=== PATIENT | female | born 1955 | race Caucasian/White ===

== ENCOUNTER 2020-10-23 11:14 | Outpatient (REF) | payer MEDICAID, SELFPAY ==
--- NOTE | ~2020-10-23 | MM_ITS ---
EXAMINATION: MM SCREENING DIGITAL BREAST TOMOSYNTHESIS, BILATERAL CLINICAL INFORMATION: Screening. Asymptomatic. The lifetime risk of breast cancer based on the Tyrer-Cuzick Model is 5.6%. COMPARISON: Mammography: May 24, 2019 and studies dating back to November 27, 2013 TECHNIQUE: Digital breast tomosynthesis is performed in both the craniocaudal and mediolateral oblique views along with computer-aided detection (CAD). Synthesized 2D images are generated from the tomosynthesis. FINDINGS: There are scattered areas of fibroglandular density (ACR BI-RADS breast composition Category b). There are no significant masses, abnormal calcifications, or other abnormalities. Architecture distortion from previous surgery is again seen within the anterior aspect of the left breast. MM/MM tomosynthesis screening BI IMPRESSION: There are no significant changes from prior study. ASSESSMENT: BI-RADS 2: Benign RECOMMENDATION: Routine annual mammography screening. This patient's information was entered into a reminder system with a target due date for their next mammogram.
== END 2020-10-23 11:15 | disposition home or self-care (01) ==
LOC: HO.MAMMO 11:14
PROVIDERS: Visit Provider General Practice
DX: Z12.31 Encounter for screening mammogram for malignant neoplasm of breast (principal)
CPT/HCPCS: 77063; 77067

== ENCOUNTER 2020-12-21 09:21 | Outpatient (REF) | payer MEDICARE, MEDICAID, SELFPAY ==
[2020-12-21 10:37] LABS: Anion Gap 13 (12-20); Blood Urea Nitrogen 14 mg/dL (9-16); Calcium 9.7 mg/dL (8.4-10.2); Carbon Dioxide 28 mmol/L (22-29); Chloride 100 mmol/L (96-108); Estimated Glomerular Filt Rate 55; Potassium 4.2 mmol/L (3.3-5.1); Sodium 137 mmol/L (135-145)
== END 2020-12-21 09:22 | disposition home or self-care (01) ==
LOC: HO.LAB 09:21
PROVIDERS: Visit Provider Internal Medicine Nephrology
DX: I10 Essential (primary) hypertension (principal)
CPT/HCPCS: 36415; 80051; 82310; 82565; 84520

== ENCOUNTER 2021-01-15 12:56 | Emergency (ER) | payer MEDICARE, MEDICAID, SELFPAY ==
--- NOTE | ~2021-01-15 | CT_ITS ---
EXAMINATION: CT ABDOMEN AND PELVIS WITHOUT CONTRAST CLINICAL INFORMATION: Poor appetite and weakness COMPARISON: Previous CT of the abdomen and pelvis most recent November 2016 TECHNIQUE: Multidetector volumetric imaging was performed from the superior aspect of the liver through the pubic symphysis. Sagittal and coronal reformatted images were obtained on the technologist's workstation. This CT examination was performed using dose optimization techniques as appropriate, variously including the following: *Automated exposure control *Adjustment of mA and/or kV according to patient size (this includes techniques or standardized protocols for targeted exams where dose is matched to indication/reason for exam; i.e. extremities or head) *Use of iterative reconstruction technique DLP: 647 mGy-cm FINDINGS: LIVER, GALLBLADDER, AND BILIARY TREE: There is a small calcification high in the dome of the right lobe of the liver. The liver is otherwise unremarkable. The gallbladder is been removed. There is no biliary duct dilatation. PANCREAS: Unremarkable. SPLEEN: Unremarkable. ADRENAL GLANDS: Unremarkable. KIDNEYS AND URETERS: There is cortical thinning or scarring of the left kidney. There is a tiny 1 mm left upper pole renal stone. The kidneys are otherwise unremarkable. The bladder is not optimally distended. There is question of mild bladder wall thickening. BLADDER: Unremarkable. GASTROINTESTINAL TRACT: The small and large bowel is unremarkable. The appendix is unremarkable. The stomach is unremarkable. ABDOMINAL WALL: There are umbilical and supraumbilical hernias containing fat. LYMPH NODES: Normal. VASCULAR: Unremarkable. PELVIC VISCERA: Unremarkable. OSSEOUS STRUCTURES: There are degenerative changes of the spine. CT/CT abdomen pelvis wo con IMPRESSION: Left renal cortical thinning or scarring. Small nonobstructing left renal stone. Question bladder wall thickening.
--- NOTE | ~2021-01-15 | XR_ITS ---
EXAMINATION: XR CHEST CLINICAL INFORMATION: Weakness COMPARISON: June 24, 2018 TECHNIQUE: AP portable view of the chest was obtained. FINDINGS: There is a region of ill-defined density seen within the left lower lung peripherally which may be related to atelectasis or pneumonitis however some disc density may be related to the rotation of the chest on this image. No significant confluent parenchymal disease identified. No pneumothorax or pleural effusion. Heart normal size. No evidence of pulmonary edema. 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 XR/XR chest 1V IMPRESSION: Small focus of ill-defined density left lower lung which may be related to minor atelectasis and less likely pneumonitis.
--- NOTE | ~2021-01-15 | CT_ITS ---
EXAMINATION: CT CHEST WITHOUT CONTRAST CLINICAL INFORMATION: Poor appetite and weakness COMPARISON: Previous chest x-ray most recent June 2018 TECHNIQUE: Multidetector volumetric CT imaging of the chest was done. Axial MIP volume rendering provided. Sagittal and coronal reformatted images were obtained. This CT examination was performed using dose optimization techniques as appropriate, variously including the following: *Automated exposure control *Adjustment of mA and/or kV according to patient size (this includes techniques or standardized protocols for targeted exams where dose is matched to indication/reason for exam; i.e. extremities or head) *Use of iterative reconstruction technique DLP: 297 mGy-cm FINDINGS: LUNGS: There is a 2 cm cyst in the right upper lobe. The lungs are otherwise clear. MEDIASTINUM: The heart is upper normal in size. There is mild coronary artery calcification. There is no pericardial effusion. There are no enlarged hilar or mediastinal lymph nodes. The thoracic aorta is normal in caliber. PLEURA: There is no pleural effusion. No pleural mass or thickening. AXILLA: No lymphadenopathy. OSSEOUS STRUCTURES: There are mild degenerative changes of the spine. CT/CT chest wo con IMPRESSION: 2 cm cyst in the right upper lobe. Mild coronary artery calcification.
[2021-01-15 13:15] VITALS: BP 138/82; BP 146/79; PULSE 51; PULSE 52; RESP 16; TEMP 36.7; O2SAT 100; O2SAT 95; BMI 33.5
--- NOTE | 2021-01-15 13:22 | ED_ITS ---
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 Sent to ED. Recently her digital content marketing manager cut her toprol 150mg daily to 50mg daily but she continues on her nifedipine and HCTZ MD elicited complaint: dizziness and lightheadedness Onset (ago): week(s) (2) Timing: sudden onset and intermittent Severity: moderate Description: lightheadedness and off-balance Context: change in body position History of similar symptoms: No Exacerbating factors: movement/ambulation and change in body position Relieving factors: remaining still Associated symptoms: weakness Related Data Home Medications Medication Instructions Recorded Confirmed atorvastatin 40 mg tablet 40 mg PO BEDTIME 01/15/21 01/15/21 cholecalciferol (vitamin D3) 50 50 mcg PO DAILY 01/15/21 01/15/21 mcg (2,000 unit) capsule cyanocobalamin (vitamin B-12) 500 500 mcg PO DAILY 01/15/21 01/15/21 mcg tablet famotidine 20 mg tablet 20 mg PO DAILY 01/15/21 01/15/21 fluoxetine 10 mg capsule 10 mg PO BEDTIME 01/15/21 01/15/21 fluticasone propionate 50 2 spray INTRANASAL QAM PRN 01/15/21 01/15/21 mcg/actuation nasal spray,suspension hydrochlorothiazide 25 mg tablet 25 mg PO DAILY 01/15/21 01/15/21 ibuprofen 600 mg tablet 600 mg PO TID PRN 01/15/21 01/15/21 levothyroxine 50 mcg tablet 50 mcg PO DAILY 01/15/21 01/15/21 losartan 50 mg tablet 50 mg PO DAILY 01/15/21 01/15/21 metoprolol succinate 100 mg 50 mg PO DAILY 01/15/21 01/15/21 tablet,extended release 24 hr nifedipine 90 mg tablet,extended 90 mg PO DAILY 01/15/21 01/15/21 release oxcarbazepine 300 mg tablet 300 mg PO DAILY 01/15/21 01/15/21 oxcarbazepine 300 mg tablet 600 mg PO BEDTIME 01/15/21 01/15/21 sennosides 8.6 mg tablet (Senna 1 - 2 tab PO BID PRN 01/15/21 01/15/21 Laxative) trazodone 150 mg tablet 75 - 150 mg PO BEDTIME PRN 01/15/21 01/15/21 Previous Rx's Medication Instructions Recorded cefuroxime axetil 250 mg tablet 250 mg PO BID 7 Days #14 tab 01/15/21 Allergies Allergy/AdvReac Type Severity Reaction Status Date / Time lisinopril [LISINOPRIL] Allergy Intermediate ANGIOEDEMA, Verified 01/15/21 13:26 angioedema? Seafood Allergy Mild DIFFICULTY Uncoded 11/30/19 16:35 BREATHING seafood Allergy Unknown throat Uncoded 07/12/17 00:00 closes up, stuffy nose seafood; shellfish Allergy Unknown anaphylaxis Uncoded 09/09/18 00:00 Review of Systems Review of Systems: Constitutional : No Weight loss, No Fever, No Chills, No Fatigue, No Malaise ENT/Mouth : No sore throat, No Rhinorrhea Eyes: No Eye Pain, No Swelling, No Redness Cardiovascular : No Chest Pain, No SOB, No Dyspnea on Exertion, No Orthopnea, No Edema, No Palpitations Respiratory : No Cough, No Sputum, No Wheezing Gastrointestinal : No Nausea, No Vomiting, No Diarrhea, No Constipation, No abdominal Pain, No Hematochezia, No Melena Genitourinary : No Dysuria, No Urinary Frequency, No Hematuria, Musculoskeletal : No joint pain, No Myalgias, No Joint Swelling Skin : No Skin Lesions, No rash Neuro : pos Weakness, No Numbness, pos Dizziness, No Headache Psych : No Anxiety/Panic, No Depression Heme/Lymph: No Bruising, No Bleeding,No Lymphadenopathy Endocrine : No Polyuria, No Polydipsia All other systems reviewed and are negative PMFSH Past Medical History Attestation statement: The following information was validated with the patient. Medical History (Updated 01/15/21 @ 16:21 by Zuleyka Ritchie DO) CKD (chronic kidney disease) Depression Diabetes HLD (hyperlipidemia) Hypothyroidism Social History Social History (Updated 01/15/21 @ 13:37 by Zuleyka Ritchie DO) Alcohol intake: never Patient Tobacco Use Status: Never used Tobacco Advance Directives: Yes Advance Directives Information Provided: Yes Advance Directives on File: No Physical Exam Vital Signs: Vital Signs: Last Vital Signs Temp 98.0 F 01/15/21 14:19 Pulse 51 01/15/21 14:19 Resp 15 01/15/21 14:19 BP 145/81 H 01/15/21 14:19 Pulse Ox 99 01/15/21 14:19 Body Mass Index 33.5 Appearance: Alert. Oriented X3. No acute distress. Eyes: Pupils equal, round and reactive to light. ENT: Pharynx normal. Neck: Normal inspection. Neck supple. CVS: Normal heart rate and rhythm. Pulses normal. Respiratory: No respiratory distress. Breath sounds normal. Abdomen: Soft and nontender. Skin: Skin warm and dry. Normal skin color. Normal skin turgor. Extremities: No lower extremity edema. No calf ttp Neuro: Oriented X 3. No motor deficit. No sensory deficit. no drift Course Course Course Narrative: negative orthostatic VS but she felt dizzy with standing UA+ with WBCs and bacteria infection suspected cultures and lactic along with IV rocephin ordered 337pm patient can likely be kept off her metoprolol will offer rehab if she is not feeling well will stop metoprolol feels much better, i did offer rehab but she refuses, wants to go home as she has small kids to care for MDM - Dizziness MDM Narrative Medical decision making narrative: 65 yo female with HTN, HLD, DM here with 2 weeks dizziness worse with standing found to be orthostatic in [facility] today sent to ED. She denies CP/SOB or GIB symptoms. She was decreased on her metoprolol recently. She does note a poor appetite recently but denies abdominal pain. At this time will obtain labs, EKG, UA, CXR, ortho VS, and give 1L of fluid the patient will likely need reduction of her BP medications after review. Lab Data Result diagrams: 01/15/21 14:09 01/15/21 14:09 Labs: Lab Results 01/15/21 01/15/21 01/15/21 Range/Units 14:09 14:09 14:09 WBC 3.7 L (4.8-10.8) X10*3/uL RBC 4.89 (4.20-5.50) X10*6/uL Hgb 10.9 L (12.0-16.0) g/dl Hct 33.7 L (37.0-47.0) % MCV 68.9 L (80.0-98.0) fL MCH 22.3 L (27.0-33.0) pg MCHC 32.3 (31.0-35.0) g/dl RDW 18.0 H (11.0-16.0) % Plt Count 221 (160-400) X10*3/uL MPV 10.7 (9.4-12.3) fL Immature Gran % (Auto) 0.3 (0.0-0.4) % Neut % (Auto) 55.3 (45-73) % Lymph % (Auto) 29.9 (20-40) % [place] % (Auto) 12.6 H (2-11) % Eos % (Auto) 1.4 (0-4) % Baso % (Auto) 0.5 (0-2) % Lymph # (Auto) 1.1 L (1.2-4.9) X10*3/uL [place] # (Auto) 0.5 (0.1-1.2) X10*3/uL Eos # (Auto) 0.1 (0.0-0.4) X10*3/uL Baso # (Auto) 0.0 (0.0-0.2) X10*3/uL Abs Immat Gran (auto) 0.01 (0.00-0.03) X10*3/uL Absolute Neuts (auto) 2.02 (2.0-8.3) x10*3/uL Absolute Nucleated RBC 0.000 (0.0-0.012) X10*3/uL Nucleated RBC % (auto) 0.0 (0.0-0.2) /100WBC Sodium 134 L (135-145) mmol/L Potassium 3.1 L D (3.3-5.1) mmol/L Chloride 97 (96-108) mmol/L Carbon Dioxide 30 H (22-29) mmol/L Anion Gap 10 L (12-20) BUN 14 (9-16) mg/dL Creatinine 0.85 (0.5-1.4) mg/dL Estim Creat Clear Calc 63.3 Estimated GFR > 60 Random Glucose 101 (60-115) mg/dL Lactic Acid (0.5-2.0) mmol/L Calcium 9.1 D (8.4-10.2) mg/dL Magnesium 1.7 (1.6-2.6) mg/dL Total Bilirubin 0.4 (0.0-1.0) mg/dL Direct Bilirubin 0.2 (0.0-0.5) mg/dL AST 16 (5-31) U/L ALT 14 (0-31) U/L Alkaline Phosphatase 72 (39-117) U/L Troponin I High Sens (<3.5-17.0) ng/L Total Protein 7.0 (6.5-8.0) g/dL Albumin 3.9 (3.5-5.0) g/dL Lipase 26 (8-78) U/L Urine Color Urine Appearance Urine pH (5.0-8.0) Ur Specific [place] (1.005-1.025) Urine Protein (NEG-TRACE) MG/DL Urine Glucose (UA) (NEG) MG/DL Urine Ketones (NEG) MG/DL Urine Blood (NEG) Urine Nitrite (NEG) Ur Leukocyte Esterase (NEG) Urine RBC (0) /HPF Urine WBC (0-4) /HPF Ur Squamous Epith Cells /LPF Urine Bacteria /LPF Urine Mucus /LPF COVID-19 (ZACK) Negative (Negative) COVID-19 Clin Com See Note 01/15/21 01/15/21 01/15/21 Range/Units 14:09 15:07 16:59 WBC (4.8-10.8) X10*3/uL RBC (4.20-5.50) X10*6/uL Hgb (12.0-16.0) g/dl Hct (37.0-47.0) % MCV (80.0-98.0) fL MCH (27.0-33.0) pg MCHC (31.0-35.0) g/dl RDW (11.0-16.0) % Plt Count (160-400) X10*3/uL MPV (9.4-12.3) fL Immature Gran % (Auto) (0.0-0.4) % Neut % (Auto) (45-73) % Lymph % (Auto) (20-40) % [place] % (Auto) (2-11) % Eos % (Auto) (0-4) % Baso % (Auto) (0-2) % Lymph # (Auto) (1.2-4.9) X10*3/uL [place] # (Auto) (0.1-1.2) X10*3/uL Eos # (Auto) (0.0-0.4) X10*3/uL Baso # (Auto) (0.0-0.2) X10*3/uL Abs Immat Gran (auto) (0.00-0.03) X10*3/uL Absolute Neuts (auto) (2.0-8.3) x10*3/uL Absolute Nucleated RBC (0.0-0.012) X10*3/uL Nucleated RBC % (auto) (0.0-0.2) /100WBC Sodium (135-145) mmol/L Potassium (3.3-5.1) mmol/L Chloride (96-108) mmol/L Carbon Dioxide (22-29) mmol/L Anion Gap (12-20) BUN (9-16) mg/dL Creatinine (0.5-1.4) mg/dL Estim Creat Clear Calc Estimated GFR Random Glucose (60-115) mg/dL Lactic Acid 0.9 (0.5-2.0) mmol/L Calcium (8.4-10.2) mg/dL Magnesium (1.6-2.6) mg/dL Total Bilirubin (0.0-1.0) mg/dL Direct Bilirubin (0.0-0.5) mg/dL AST (5-31) U/L ALT (0-31) U/L Alkaline Phosphatase (39-117) U/L Troponin I High Sens 7.0 (<3.5-17.0) ng/L Total Protein (6.5-8.0) g/dL Albumin (3.5-5.0) g/dL Lipase (8-78) U/L Urine Color YELLOW Urine Appearance HAZY Urine pH 6.0 (5.0-8.0) Ur Specific [place] 1.010 (1.005-1.025) Urine Protein NEG (NEG-TRACE) MG/DL Urine Glucose (UA) NEG (NEG) MG/DL Urine Ketones NEG (NEG) MG/DL Urine Blood NEG (NEG) Urine Nitrite NEG (NEG) Ur Leukocyte Esterase 1+ H (NEG) Urine RBC 0 (0) /HPF Urine WBC 10-14 H (0-4) /HPF Ur Squamous Epith Cells 1+ /LPF Urine Bacteria 2+ /LPF Urine Mucus TRACE /LPF COVID-19 (ZACK) (Negative) COVID-19 Clin Com ECG Data Attestation: I personally reviewed and interpreted this ECG as follows: ECG interpretation date: 01/15/21 ECG interpretation time: 13:48 Interpretation: Rate: 47 Rhythm: sinus bradycardia Helper: left , LVH Normal P waves. Normal ROQUE. Normal QRS complex. ST T wave : nonspecific Vs3-V5, no DENISE, inverted III qTC: normal prior studies: no sig change 2019 The study has been interpreted contemporaneously by me. . Discharge Plan Discharge Clinical Impression: Acute hypokalemia, Dizziness, Bradycardia, Acute UTI Patient Disposition: Home, Self-Care Instructions: Urinary Tract Infection in Women (ED), Hypokalemia (ED), Dizziness (ED) Additional Instructions: return to ED for any worsening symptoms or concerns NO METOPROLOL Prescriptions: New cefuroxime axetil 250 mg tablet 250 mg PO BID 7 Days Qty: 14 RF: 0 No Action losartan 50 mg tablet 50 mg PO DAILY RF: 0 atorvastatin 40 mg tablet 40 mg PO BEDTIME RF: 0 sennosides [Senna Laxative] 8.6 mg tablet 1 - 2 tab PO BID PRN (Reason: Constipation) RF: 0 nifedipine 90 mg tablet extended release 90 mg PO DAILY RF: 0 metoprolol succinate 100 mg tablet extended release 24 hr 50 mg PO DAILY RF: 0 oxcarbazepine 300 mg tablet 600 mg PO BEDTIME RF: 0 oxcarbazepine 300 mg tablet 300 mg PO DAILY RF: 0 cyanocobalamin (vitamin B-12) 500 mcg tablet 500 mcg PO DAILY RF: 0 levothyroxine 50 mcg tablet 50 mcg PO DAILY RF: 0 trazodone 150 mg tablet 75 - 150 mg PO BEDTIME PRN (Reason: Sleep) RF: 0 fluoxetine 10 mg capsule 10 mg PO BEDTIME RF: 0 hydrochlorothiazide 25 mg tablet 25 mg PO DAILY RF: 0 ibuprofen 600 mg tablet 600 mg PO TID PRN (Reason: pain) RF: 0 fluticasone propionate 50 mcg/actuation spray,suspension 2 spray intranasal QAM PRN (Reason: Allergy Symptoms) RF: 0 cholecalciferol (vitamin D3) 50 mcg (2,000 unit) capsule 50 mcg PO DAILY RF: 0 famotidine 20 mg Tablet 20 mg PO DAILY RF: 0 Referrals: Physician,Unknown J [Primary Care Provider] - 2 days Print Language: Tajik
--- NOTE | 2021-01-15 13:27 | PC.NURSE ---
pt states she went to [facility] for knee check-up, she became weak and dizzy, the nurse at [facility] did orthos and she was positive for orthos, the nurse recommended her to come to the ed for further evaluation. Pt has history of high blood pressure and states she took her metoprolol this morning, she also reports her pcp recently changed her metoprolol dose. pt denies sob/chest pain/numbness/tingling. no fever/chills. no other symptoms reported. pt alert and oriented x4, current HR 50.
--- NOTE | 2021-01-15 13:28 | ECG_ITS ---
Test Reason : WEAKNESS Blood Pressure : / mmHG Vent. Rate : 047 BPM Atrial Rate : 047 BPM P-R Int : 166 ms QRS Dur : 078 ms QT Int : 498 ms P-R-T Axes : 036 -11 -05 degrees QTc Int : 440 ms Sinus bradycardia RSR' or QR pattern in V1 suggests right ventricular conduction delay Minimal voltage criteria for LVH, may be normal variant ( R in aVL ) Nonspecific ST abnormality Abnormal ECG No significant changes seen Referred By: Zuleyka Ritchie Electronically Signed By:JULY MADISON MD
[2021-01-15] MEDS: 0.9 % Sodium Chloride 1,000 ML 999 ML IVCONT (13:37)
--- NOTE | 2021-01-15 14:09 | PHA.MEDREC ---
Pharmacy Consult ? Medication Reconciliation Pharmacy has completed the medication reconciliation. Note the metoprolol dose was decreased to 50mg QD Thanks Sandra Chiang
[2021-01-15 14:13] VITALS: BP 132/69; PULSE 50
[2021-01-15 14:14] VITALS: BP 145/86; PULSE 49
[2021-01-15 14:14] LABS: MANUAL DIFF FLAG NO
[2021-01-15 14:15] VITALS: BP 142/83; PULSE 47
[2021-01-15 14:15] LABS: Basophils Percent Auto 0.5 % (0-2); Eosinophils Absolute Auto 0.1 X10*3/uL (0.0-0.4); Eosinophils Percent Auto 1.4 % (0-4); Hematocrit 33.7 % (37.0-47.0); Hemoglobin 10.9 g/dl (12.0-16.0); Imm Gran Abs Auto 0.01 X10*3/uL (0.00-0.03); Imm Gran Pct Auto 0.3 % (0.0-0.4); Lymphocytes Absolute Auto 1.1 X10*3/uL (1.2-4.9); Lymphocytes Percent Auto 29.9 % (20-40); Mean Corpuscular HGB Conc 32.3 g/dl (31.0-35.0); Mean Corpuscular Hemoglobin 22.3 pg (27.0-33.0); Mean Corpuscular Volume 68.9 fL (80.0-98.0); Mean Platelet Volume 10.7 fL (9.4-12.3); Monocytes Absolute Auto 0.5 X10*3/uL (0.1-1.2); Monocytes Percent Auto 12.6 % (2-11); Neutrophils Absolute Auto 2.02 x10*3/uL (2.0-8.3); Neutrophils Percent Auto 55.3 % (45-73); Platelet Count 221 X10*3/uL (160-400); Red Blood Count 4.89 X10*6/uL (4.20-5.50); White Blood Count 3.7 X10*3/uL (4.8-10.8)
[2021-01-15 14:19] VITALS: BP 145/81; PULSE 51; RESP 15; TEMP 36.7; O2SAT 99
[2021-01-15 14:29] LABS: COVID-19 Test Negative (Negative)
[2021-01-15 14:31] LABS: Alanine Aminotransferase 14 U/L (0-31); Albumin Level 3.9 g/dL (3.5-5.0); Alkaline Phosphatase 72 U/L (39-117); Anion Gap 10 (12-20); Aspartate Amino Transferase 16 U/L (5-31); Bilirubin Direct 0.2 mg/dL (0.0-0.5); Bilirubin Total 0.4 mg/dL (0.0-1.0); Blood Urea Nitrogen 14 mg/dL (9-16); Calcium 9.1 mg/dL (8.4-10.2); Carbon Dioxide 30 mmol/L (22-29); Chloride 97 mmol/L (96-108); Creatinine Clr Calc Pharmacy 63.3; Estimated Glomerular Filt Rate > 60; Glucose Random 101 mg/dL (60-115); Lipase 26 U/L (8-78); Magnesium 1.7 mg/dL (1.6-2.6); Potassium 3.1 mmol/L (3.3-5.1); Sodium 134 mmol/L (135-145)
[2021-01-15] MEDS: Potassium Chloride ER 20 MEQ TAB.ER.PRT PO (15:10)
[2021-01-15 15:17] LABS: Appearance Urine HAZY; Color Urine YELLOW; Glucose Urine UA NEG (NEG); Leukocyte Esterase Urine 1+ (NEG); Nitrite Urine NEG (NEG); UACC Culture Trigger YES; Urine Blood NEG (NEG); Urine Ketones NEG (NEG); Urine Protein NEG (NEG-TRACE)
[2021-01-15 15:27] LABS: Mucus Urine TRACE /LPF; Squamous Epithelial Cell Urine 1+ /LPF
[2021-01-15 15:28] LABS: Bacteria Urine 2+ /LPF; RBC Urine 0 /HPF (0)
[2021-01-15 17:19] LABS: Lactic Acid 0.9 mmol/L (0.5-2.0)
[2021-01-15] MEDS: cefTRIAXone sodium 1 GM in 0.9 % Sodium Chloride 50 ML IV (17:31)
--- NOTE | 2021-01-15 17:54 | PC.NURSE ---
PT WITH STEADY GAIT TO THE BATHROOM . DENIES DIZZINESS, ANTIBIOTICS INFUSING
== END 2021-01-15 19:31 | disposition home or self-care (01) ==
PROVIDERS: Emergency Provider Emergency Medicine
DX: R42 Dizziness and giddiness (principal); E87.6 Hypokalemia; R00.1 Bradycardia, unspecified; N39.0 Urinary tract infection, site not specified; E11.22 Type 2 diabetes mellitus with diabetic chronic kidney disease; I12.9 Hypertensive chronic kidney disease with stage 1 through stage 4 chronic kidney disease, or unspecified chronic kidney disease; N18.9 Chronic kidney disease, unspecified; Z79.899 Other long term (current) drug therapy; Z20.822 Contact with and (suspected) exposure to COVID-19
CPT/HCPCS: 36415; 71045; 71250; 74176; 80048; 80076; 81001; 83605; 83690; 83735; 84484; 85025; 87040; 87086; 87088; 87186; 87635; 93005; 96361; 96365; 99284; J0696

== ENCOUNTER 2022-05-29 14:37 | Emergency (ER) | payer MEDICARE, MEDICAID, SELFPAY ==
[2022-05-29] VITALS (8 sets, daily range): BP systolic 167–219; BP diastolic 77–117; PULSE 53–79; RESP 12–22; TEMP 35.9–37.1; O2SAT 95–99; BMI 31.5
--- NOTE | 2022-05-29 15:07 | ED_ITS ---
HPI - General Adult General Chief complaint: Recheck/Abnormal Lab/Rx <ROBERTO Arnold - Last Filed: 05/29/22 15:10> Stated complaint: high bp <ROBERTO Arnold - Last Filed: 05/29/22 15:10> Time Seen by Provider: 05/29/22 17:24 <ROBERTO Arnold - Last Filed: 05/29/22 15:10> Source: patient, RN notes reviewed and evp and chief operating officer <Shoaib Paul - Last Filed: 05/29/22 20:06> Mode of arrival: ambulatory <Shoaib Paul - Last Filed: 05/29/22 20:06> Limitations: language barrier <Shoaib Paul - Last Filed: 05/29/22 20:06> History of Present Illness HPI narrative: 66-year-old female past medical history significant for hypertension, hyperlipidemia, hypothyroidism presents for evaluation of vomiting and high blood pressure. Patient reports that she has been vomiting for the last week up until Wednesday, 2 days ago. She made an appointment with her primary doctor and was seen today who referred her to the emergency department. The patient reports that she was vomiting a lot this past Wednesday, only a couple of times on Wednesday, 2 days ago and has not vomited in the last 2 days. She states that some of her vomitus was ?dark in color. ? Denies any history of GI bleed and she is not any blood thinning medications She states that her doctor dentist her blood pressure was elevated and sent her to the emergency department for that reason as well The patient takes hydrochlorothiazide, metoprolol, losartan, and nifedipine for her blood pressure She reports that she has not been taking his medications due to her vomiting Her blood pressure in the ER was as high as 219/113. <Shoaib Paul - Last Filed: 05/29/22 20:06> Related Data Home medications: Home Medications Medication Instructions Recorded Confirmed atorvastatin 40 mg tablet 40 mg PO BEDTIME 01/15/21 01/15/21 cholecalciferol (vitamin D3) 50 50 mcg PO DAILY 01/15/21 01/15/21 mcg (2,000 unit) capsule cyanocobalamin (vitamin B-12) 500 500 mcg PO DAILY 01/15/21 01/15/21 mcg tablet famotidine 20 mg tablet 20 mg PO DAILY 01/15/21 01/15/21 fluoxetine 10 mg capsule 10 mg PO BEDTIME 01/15/21 01/15/21 fluticasone propionate 50 2 spray intranasal QAM PRN Allergy 01/15/21 01/15/21 mcg/actuation nasal Symptoms spray,suspension hydrochlorothiazide 25 mg tablet 25 mg PO DAILY 01/15/21 01/15/21 ibuprofen 600 mg tablet 600 mg PO TID PRN pain 01/15/21 01/15/21 levothyroxine 50 mcg tablet 50 mcg PO DAILY 01/15/21 01/15/21 losartan 50 mg tablet 50 mg PO DAILY 01/15/21 01/15/21 metoprolol succinate 100 mg 50 mg PO DAILY 01/15/21 01/15/21 tablet,extended release 24 hr nifedipine 90 mg tablet,extended 90 mg PO DAILY 01/15/21 01/15/21 release oxcarbazepine 300 mg tablet 300 mg PO DAILY 01/15/21 01/15/21 oxcarbazepine 300 mg tablet 600 mg PO BEDTIME 01/15/21 01/15/21 sennosides 8.6 mg tablet (Senna 1 - 2 tab PO BID PRN Constipation 01/15/21 01/15/21 Laxative) trazodone 150 mg tablet 75 - 150 mg PO BEDTIME PRN Sleep 01/15/21 01/15/21 Previous Rx's Medication Instructions Recorded cefuroxime axetil 250 mg tablet 250 mg PO BID 7 days #14 tabs 01/15/21 ondansetron 4 mg disintegrating 4 mg PO Q8H PRN Nausea And 05/29/22 tablet Vomiting #10 tabs <ROBERTO Arnold - Last Filed: 05/29/22 15:10> Allergies/adverse reactions: Allergies Allergy/AdvReac Type Severity Reaction Status Date / Time lisinopril [LISINOPRIL] Allergy Intermediate ANGIOEDEMA, Verified 05/29/22 15:06 angioedema? Seafood Allergy Mild DIFFICULTY Uncoded 05/29/22 15:06 BREATHING seafood Allergy Unknown throat Uncoded 05/29/22 15:06 closes up, stuffy nose seafood; shellfish Allergy Unknown anaphylaxis Uncoded 05/29/22 15:06 <ROBERTO Arnold - Last Filed: 05/29/22 15:10> Review of Systems Constitutional: Constitutional: Reports as per HPI, Denies chills, Denies fatigue, Denies fever(s) and Denies headache(s) <Shoaib Paul - Last Filed: 05/29/22 20:06> ENT: Denies headache(s) <Shoaib Paul - Last Filed: 05/29/22 20:06> Cardiovascular: Cardiovascular: Denies chest pain and Denies dyspnea <Shoaib Paul - Last Filed: 05/29/22 20:06> Respiratory: Respiratory: Denies cough and Denies dyspnea <Shoaib Paul - Last Filed: 05/29/22 20:06> Gastrointestinal: Gastrointestinal: Denies abdominal pain, Denies melena, Denies hematochezia, Denies constipation and Reports vomiting (Reports the vomitus was dark) <Shoaib Paul - Last Filed: 05/29/22 20:06> Genitourinary: Genitourinary: Denies dysuria <Shoaib Paul - Last Filed: 05/29/22 20:06> Neurologic: Denies headache(s) and Denies focal weakness <Shoaib Paul - Last Filed: 05/29/22 20:06> Endocrine: Endocrine: Denies fatigue <Shoaib Paul - Last Filed: 05/29/22 20:06> [facility] Past Medical History Medical History: Medical History (Updated 05/29/22 @ 19:41 by Shoaib Paul) CKD (chronic kidney disease) Depression Diabetes HLD (hyperlipidemia) Hypothyroidism <ROBERTO Arnold - Last Filed: 05/29/22 15:10> Social History Social History: Social History (Updated 01/15/21 @ 13:37 by Gretel Ritchie DO) Alcohol intake: never Patient Tobacco Use Status: Never used Tobacco Smoked in Last 30 Days: No Use of substances other than those prescribed or required for medical reasons: No Advance Directives: No Advance Directives Information Provided: No <ROBERTO Arnold - Last Filed: 05/29/22 15:10> Physical Exam ED Vital Signs: Vital Signs - 24 hr 05/29/22 15:07 05/29/22 16:47 05/29/22 17:40 Temperature 96.7 F L 98.8 F 98.2 F Pulse Rate 61 60 79 Respiratory Rate 18 16 20 Blood Pressure 203/117 H 219/113 H 178/77 H Pulse Oximetry 99 99 95 Oxygen Delivery Method Room Air Room Air Room Air 05/29/22 18:16 05/29/22 19:21 05/29/22 19:55 Temperature 97.8 F 98.1 F Pulse Rate 53 57 62 Respiratory Rate 22 H 16 12 Blood Pressure 181/79 H 178/83 H 210/104 H Pulse Oximetry 96 96 Oxygen Delivery Method Room Air Room Air BMI result Body Mass Index 31.5 <ROBERTO Arnold - Last Filed: 05/29/22 15:10> Vital Signs - 24 hr 05/29/22 15:07 05/29/22 16:47 05/29/22 17:40 Temperature 96.7 F L 98.8 F 98.2 F Pulse Rate 61 60 79 Respiratory Rate 18 16 20 Blood Pressure 203/117 H 219/113 H 178/77 H Pulse Oximetry 99 99 95 Oxygen Delivery Method Room Air Room Air Room Air 05/29/22 18:16 05/29/22 19:21 05/29/22 19:55 Temperature 97.8 F 98.1 F Pulse Rate 53 57 62 Respiratory Rate 22 H 16 12 Blood Pressure 181/79 H 178/83 H 210/104 H Pulse Oximetry 96 96 Oxygen Delivery Method Room Air Room Air BMI result Body Mass Index 31.5 <Shoaib Paul - Last Filed: 05/29/22 20:06> Const General: healthy appearing, comfortable, no acute distress, alert and awake <Shoaib Paul - Last Filed: 05/29/22 20:06> Nutritional Appearance: well nourished <Shoaib Paul - Last Filed: 05/29/22 20:06> Orientation/consciousness: patient oriented x3 <Shoaib Paul - Last Filed: 05/29/22 20:06> HENMT Head: Yes normocephalic and Yes atraumatic <Shoaib Paul - Last Filed: 05/29/22 20:06> Throat: Yes posterior oropharynx normal <Shoaib Paul - Last Filed: 05/29/22 20:06> Eyes Eyelids: Yes eyelids normal <Shoaib Last Filed: 05/29/22 20:06> Conjunctivae: conjunctivae normal < Last Filed: 05/29/22 20:06> Sclerae: sclerae normal <Shoaib Last Filed: 05/29/22 20:06> Corneas: corneas normal < Last Filed: 05/29/22 20:06> Pupils: Equal, round and reactive pupils present <Shoaib O Last Filed: 05/29/22 20:06> EOM: EOMs intact bilaterally <Shoaib Last Filed: 05/29/22 20:06> Neck Neck: Yes full ROM <Shoaib Last Filed: 05/29/22 20:06> Resp Effort & Inspection: normal respiratory effort, able to speak in complete sentences, no audible wheezes and not labored <Shoaib Last Filed: 05/29/22 20:06> Auscultation: clear to auscultation bilaterally <Shoaib Last Filed: 05/29/22 20:06> Cardio Rate: regular rate <Shoaib Filed: 05/29/22 20:06> Rhythm: regular rhythm <Shoaib Filed: 05/29/22 20:06> GI Inspection: No distended <Shoaib Last Filed: 05/29/22 20:06> Palpation (GI): Soft to palpation, not firm, nontender, no guarding and not rigid <Shoaib Last Filed: 05/29/22 20:06> Auscultation: normoactive bowel sounds <Shoaib O Last Filed: 05/29/22 20:06> Rectal Exam - Female: visual inspection normal, normal sphincter tone and No heme positive stool <Shoaib O Last Filed: 05/29/22 20:06> Skin General skin exam: no rashes or lesions noted and elasticity normal <Shoaib O F iled: 05/29/22 20:06> Neuro General: patient oriented x3 <Shoaib Paul - Last Filed: 05/29/22 20:06> Cranial nerves: Yes CN's II-XII intact bilaterally, Yes Equal, round and reactive pupils present and Yes Bilaterally intact EOM present <Shoaib Paul - Last Filed: 05/29/22 20:06> Cognition (Neuro): normal cognition <Shoaib Paul - Last Filed: 05/29/22 20:06> Extrem Other: Moving all extremities well without any obvious deformities <Shoaib estrada - Last Filed: 05/29/22 20:06> Course Course Course Narrative: RME performed by Shanda Dsouza PA-C. Patient is a 66 year old female presenting to the emergency department with nausea and vomiting a week. Patient states that she is having epigastric pain with dark blood in it. Patient states that she is on high blood pressure medications. Labs ordered. Patient placed back in the waiting room pending results and room availability. <ROBERTO Arnold - Last Filed: 05/29/22 15:10> Reevaluation(s) Reevaluation #1: Patient's blood pressure improved, she has had no further vomiting, she is stable for discharge. We will send her home with Neri to help make sure she is not nauseous while taking her antihypertensive medications. <Shoaib Paul - Last Filed: 05/29/22 20:06> Time: 19:40 <Shoaib Paul - Last Filed: 05/29/22 20:06> Reevaluation #2: The patient was revived all part discharge her repeat blood pressure was 210/103. Will give her a dose of her home medications and repeat blood pressure <Shoaib Paul - Last Filed: 05/29/22 20:06> Time: 20:05 <Shoaib Paul - Last Filed: 05/29/22 20:06> Medications Administered Discontinued Medications Generic Name Dose Route Start Last Admin Trade Name Freq PRN Reason Stop Dose Admin Hydralazine HCl 5 mg 05/29/22 17:44 05/29/22 18:20 Hydralazine Hcl 20 Mg/Ml Vial IVPUSH 05/29/22 17:45 5 mg ONCE ONE Administration Protocol Sodium Chloride 1,000 mls @ 999 mls/hr 05/29/22 17:45 05/29/22 19:44 Ns IV 05/29/22 18:45 Infused .Q1H1M SUELLEN Infusion Ondansetron HCl 4 mg 05/29/22 17:43 05/29/22 18:20 Ondansetron Hcl 4 Mg/2 Ml Vial IVPUSH 05/29/22 17:44 4 mg ONCE ONE Administration <ROBERTO Arnold - Last Filed: 05/29/22 15:10> Medications Administered Discontinued Medications Generic Name Dose Route Start Last Admin Trade Name Bogdan PRN Reason Stop Dose Admin Hydralazine HCl 5 mg 05/29/22 17:44 05/29/22 18:20 Hydralazine Hcl 20 Mg/Ml Vial IVPUSH 05/29/22 17:45 5 mg ONCE ONE Administration Protocol Sodium Chloride 1,000 mls @ 999 mls/hr 05/29/22 17:45 05/29/22 19:44 Ns IV 05/29/22 18:45 Infused .Q1H1M SUELLEN Infusion Ondansetron HCl 4 mg 05/29/22 17:43 05/29/22 18:20 Ondansetron Hcl 4 Mg/2 Ml Vial IVPUSH 05/29/22 17:44 4 mg ONCE ONE Administration <Shoaib Paul - Last Filed: 05/29/22 20:06> Medical Decision Making Medical Decision Making MDM Narrative: This is a 66-year-old female presenting for evaluation of vomiting over the last few days as well as high blood pressure. She reports that she has not been taking her 4 blood pressure medications due to her vomiting which is likely cause of hypertension today. The patient reports a dark vomitus over the last couple of days. A rectal exam was performed which did not show any obvious blood, a sample was sent to the lab for occult blood testing. Patient's hemoglobin is actually slightly above her baseline. She does appear slightly hemoconcentrated, so she will be given a L of IV fluid, hydralazine for her hypertension and Zofran for her vomiting. Again, the patient has not vomited in the last 2 days, so this was likely a viral bug that has since resolved <Shoaib Paul - Last Filed: 05/29/22 20:06> Differential Diagnosis Gastroenteritis Viral syndrome Peptic ulcer disease Upper GI bleed JOSHUA GI bleed Hypertension Noncompliance <Shoaib Paul - Last Filed: 05/29/22 20:06> Lab Data Result Diagrams: 05/29/22 15:45 05/29/22 15:45 <ROBERTO Arnold - Last Filed: 05/29/22 15:10> Labs: Lab Results 05/29/22 05/29/22 05/29/22 Range/Units 15:45 15:45 15:45 WBC 3.9 L (4.8-10.8) X10*3/uL RBC 5.77 H (4.20-5.50) X10*6/uL Hgb 12.4 (12.0-16.0) g/dl Hct 39.3 (37.0-47.0) % MCV 68.1 L (80.0-98.0) fL MCH 21.5 L (27.0-33.0) pg MCHC 31.6 (31.0-35.0) g/dl RDW 18.8 H (11.0-16.0) % Plt Count 231 (160-400) X10*3/uL MPV 11.0 (9.4-12.3) fL Immature Gran % (Auto) 0.3 (0.0-0.4) % Neut % (Auto) 47.5 (45-73) % Lymph % (Auto) 40.3 H (20-40) % [place] % (Auto) 8.8 (2-11) % Eos % (Auto) 2.3 (0-4) % Baso % (Auto) 0.8 (0-2) % Lymph # (Auto) 1.6 (1.2-4.9) X10*3/uL [place] # (Auto) 0.3 (0.1-1.2) X10*3/uL Eos # (Auto) 0.1 (0.0-0.4) X10*3/uL Baso # (Auto) 0.0 (0.0-0.2) X10*3/uL Abs Immat Gran (auto) 0.01 (0.00-0.03) X10*3/uL Absolute Neuts (auto) 1.8 L (2.0-8.3) x10*3/uL Absolute Nucleated RBC 0.000 (0.0-0.012) X10*3/uL Nucleated RBC % (auto) 0.0 (0.0-0.2) /100WBC PT 12.0 (10.0-13.1) SEC INR 1.0 (0.9-1.1) APTT 28.0 (26.0-36.4) SEC Sodium 141 (135-145) mmol/L Potassium 4.1 D (3.3-5.1) mmol/L Chloride 105 (96-108) mmol/L Carbon Dioxide 27 (22-29) mmol/L Anion Gap 13 (12-20) BUN 7 L (9-16) mg/dL Creatinine 0.96 (0.5-1.4) mg/dL Estim Creat Clear Calc 53.6 Estimated GFR 58 Random Glucose 93 (60-115) mg/dL Calcium 9.5 (8.4-10.2) mg/dL Magnesium 2.1 (1.6-2.6) mg/dL Total Bilirubin 0.5 (0.0-1.0) mg/dL AST 20 (5-31) U/L ALT 16 (0-31) U/L Alkaline Phosphatase 107 (39-117) U/L Total Protein 7.5 (6.5-8.0) g/dL Albumin 4.2 (3.5-5.0) g/dL Stool Occult Blood (NEGATIVE) 05/29/22 Range/Units 17:49 WBC (4.8-10.8) X10*3/uL RBC (4.20-5.50) X10*6/uL Hgb (12.0-16.0) g/dl Hct (37.0-47.0) % MCV (80.0-98.0) fL MCH (27.0-33.0) pg MCHC (31.0-35.0) g/dl RDW (11.0-16.0) % Plt Count (160-400) X10*3/uL MPV (9.4-12.3) fL Immature Gran % (Auto) (0.0-0.4) % Neut % (Auto) (45-73) % Lymph % (Auto) (20-40) % [place] % (Auto) (2-11) % Eos % (Auto) (0-4) % Baso % (Auto) (0-2) % Lymph # (Auto) (1.2-4.9) X10*3/uL [place] # (Auto) (0.1-1.2) X10*3/uL Eos # (Auto) (0.0-0.4) X10*3/uL Baso # (Auto) (0.0-0.2) X10*3/uL Abs Immat Gran (auto) (0.00-0.03) X10*3/uL Absolute Neuts (auto) (2.0-8.3) x10*3/uL Absolute Nucleated RBC (0.0-0.012) X10*3/uL Nucleated RBC % (auto) (0.0-0.2) /100WBC PT (10.0-13.1) SEC INR (0.9-1.1) APTT (26.0-36.4) SEC Sodium (135-145) mmol/L Potassium (3.3-5.1) mmol/L Chloride (96-108) mmol/L Carbon Dioxide (22-29) mmol/L Anion Gap (12-20) BUN (9-16) mg/dL Creatinine (0.5-1.4) mg/dL Estim Creat Clear Calc Estimated GFR Random Glucose (60-115) mg/dL Calcium (8.4-10.2) mg/dL Magnesium (1.6-2.6) mg/dL Total Bilirubin (0.0-1.0) mg/dL AST (5-31) U/L ALT (0-31) U/L Alkaline Phosphatase (39-117) U/L Total Protein (6.5-8.0) g/dL Albumin (3.5-5.0) g/dL Stool Occult Blood NEGATIVE (NEGATIVE) <ROBERTO Arnold - Last Filed: 05/29/22 15:10> Lab Results 05/29/22 05/29/22 05/29/22 Range/Units 15:45 15:45 15:45 WBC 3.9 L (4.8-10.8) X10*3/uL RBC 5.77 H (4.20-5.50) X10*6/uL Hgb 12.4 (12.0-16.0) g/dl Hct 39.3 (37.0-47.0) % MCV 68.1 L (80.0-98.0) fL MCH 21.5 L (27.0-33.0) pg MCHC 31.6 (31.0-35.0) g/dl RDW 18.8 H (11.0-16.0) % Plt Count 231 (160-400) X10*3/uL MPV 11.0 (9.4-12.3) fL Immature Gran % (Auto) 0.3 (0.0-0.4) % Neut % (Auto) 47.5 (45-73) % Lymph % (Auto) 40.3 H (20-40) % [place] % (Auto) 8.8 (2-11) % Eos % (Auto) 2.3 (0-4) % Baso % (Auto) 0.8 (0-2) % Lymph # (Auto) 1.6 (1.2-4.9) X10*3/uL [place] # (Auto) 0.3 (0.1-1.2) X10*3/uL Eos # (Auto) 0.1 (0.0-0.4) X10*3/uL Baso # (Auto) 0.0 (0.0-0.2) X10*3/uL Abs Immat Gran (auto) 0.01 (0.00-0.03) X10*3/uL Absolute Neuts (auto) 1.8 L (2.0-8.3) x10*3/uL Absolute Nucleated RBC 0.000 (0.0-0.012) X10*3/uL Nucleated RBC % (auto) 0.0 (0.0-0.2) /100WBC PT 12.0 (10.0-13.1) SEC INR 1.0 (0.9-1.1) APTT 28.0 (26.0-36.4) SEC Sodium 141 (135-145) mmol/L Potassium 4.1 D (3.3-5.1) mmol/L Chloride 105 (96-108) mmol/L Carbon Dioxide 27 (22-29) mmol/L Anion Gap 13 (12-20) BUN 7 L (9-16) mg/dL Creatinine 0.96 (0.5-1.4) mg/dL Estim Creat Clear Calc 53.6 Estimated GFR 58 Random Glucose 93 (60-115) mg/dL Calcium 9.5 (8.4-10.2) mg/dL Magnesium 2.1 (1.6-2.6) mg/dL Total Bilirubin 0.5 (0.0-1.0) mg/dL AST 20 (5-31) U/L ALT 16 (0-31) U/L Alkaline Phosphatase 107 (39-117) U/L Total Protein 7.5 (6.5-8.0) g/dL Albumin 4.2 (3.5-5.0) g/dL Stool Occult Blood (NEGATIVE) 05/29/22 Range/Units 17:49 WBC (4.8-10.8) X10*3/uL RBC (4.20-5.50) X10*6/uL Hgb (12.0-16.0) g/dl Hct (37.0-47.0) % MCV (80.0-98.0) fL MCH (27.0-33.0) pg MCHC (31.0-35.0) g/dl RDW (11.0-16.0) % Plt Count (160-400) X10*3/uL MPV (9.4-12.3) fL Immature Gran % (Auto) (0.0-0.4) % Neut % (Auto) (45-73) % Lymph % (Auto) (20-40) % [place] % (Auto) (2-11) % Eos % (Auto) (0-4) % Baso % (Auto) (0-2) % Lymph # (Auto) (1.2-4.9) X10*3/uL [place] # (Auto) (0.1-1.2) X10*3/uL Eos # (Auto) (0.0-0.4) X10*3/uL Baso # (Auto) (0.0-0.2) X10*3/uL Abs Immat Gran (auto) (0.00-0.03) X10*3/uL Absolute Neuts (auto) (2.0-8.3) x10*3/uL Absolute Nucleated RBC (0.0-0.012) X10*3/uL Nucleated RBC % (auto) (0.0-0.2) /100WBC PT (10.0-13.1) SEC INR (0.9-1.1) APTT (26.0-36.4) SEC Sodium (135-145) mmol/L Potassium (3.3-5.1) mmol/L Chloride (96-108) mmol/L Carbon Dioxide (22-29) mmol/L Anion Gap (12-20) BUN (9-16) mg/dL Creatinine (0.5-1.4) mg/dL Estim Creat Clear Calc Estimated GFR Random Glucose (60-115) mg/dL Calcium (8.4-10.2) mg/dL Magnesium (1.6-2.6) mg/dL Total Bilirubin (0.0-1.0) mg/dL AST (5-31) U/L ALT (0-31) U/L Alkaline Phosphatase (39-117) U/L Total Protein (6.5-8.0) g/dL Albumin (3.5-5.0) g/dL Stool Occult Blood NEGATIVE (NEGATIVE) <Shoaib Paul - Last Filed: 05/29/22 20:06> Discharge Plan Discharge Clinical Impression: Vomiting, Hypertension <ROBERTO Arnold - Last Filed: 05/29/22 15:10> Patient Disposition: Home, Self-Care <ROBERTO Arnold - Last Filed: 05/29/22 15:10> Instructions: Acute Nausea and Vomiting (ED) <ROBERTO Arnold - Last Filed: 05/29/22 15:10> Additional Instructions: Take Zofran as needed for nausea and vomiting. It is important that you take all of your blood pressure medications as prescribed Your workup in the emergency department was reassuring. There was no blood noted in your stool Follow-up with your primary doctor <ROBERTO Arnold - Last Filed: 05/29/22 15:10> Prescriptions: New ondansetron 4 mg tablet,disintegrating 4 mg PO Q8H PRN (Reason: Nausea And Vomiting) Qty: 10 0RF No Action losartan 50 mg tablet 50 mg PO DAILY atorvastatin 40 mg tablet 40 mg PO BEDTIME sennosides [Senna Laxative] 8.6 mg tablet 1 - 2 tab PO BID PRN (Reason: Constipation) nifedipine 90 mg tablet extended release 90 mg PO DAILY metoprolol succinate 100 mg tablet extended release 24 hr 50 mg PO DAILY oxcarbazepine 300 mg tablet 600 mg PO BEDTIME oxcarbazepine 300 mg tablet 300 mg PO DAILY cyanocobalamin (vitamin B-12) 500 mcg tablet 500 mcg PO DAILY levothyroxine 50 mcg tablet 50 mcg PO DAILY trazodone 150 mg tablet 75 - 150 mg PO BEDTIME PRN (Reason: Sleep) fluoxetine 10 mg capsule 10 mg PO BEDTIME hydrochlorothiazide 25 mg tablet 25 mg PO DAILY ibuprofen 600 mg tablet 600 mg PO TID PRN (Reason: pain) fluticasone propionate 50 mcg/actuation spray,suspension 2 spray intranasal QAM PRN (Reason: Allergy Symptoms) cholecalciferol (vitamin D3) 50 mcg (2,000 unit) capsule 50 mcg PO DAILY famotidine 20 mg Tablet 20 mg PO DAILY cefuroxime axetil 250 mg tablet 250 mg PO BID 7 Days Qty: 14 0RF <ROBERTO Arnold - Last Filed: 05/29/22 15:10>
[2022-05-29 15:50] LABS: Basophils Percent Auto 0.8 % (0-2); Eosinophils Absolute Auto 0.1 X10*3/uL (0.0-0.4); Eosinophils Percent Auto 2.3 % (0-4); Hematocrit 39.3 % (37.0-47.0); Hemoglobin 12.4 g/dl (12.0-16.0); Imm Gran Abs Auto 0.01 X10*3/uL (0.00-0.03); Imm Gran Pct Auto 0.3 % (0.0-0.4); Lymphocytes Absolute Auto 1.6 X10*3/uL (1.2-4.9); Lymphocytes Percent Auto 40.3 % (20-40); MANUAL DIFF FLAG NO; Mean Corpuscular HGB Conc 31.6 g/dl (31.0-35.0); Mean Corpuscular Hemoglobin 21.5 pg (27.0-33.0); Mean Corpuscular Volume 68.1 fL (80.0-98.0); Monocytes Absolute Auto 0.3 X10*3/uL (0.1-1.2); Monocytes Percent Auto 8.8 % (2-11); Neutrophils Absolute Auto 1.8 x10*3/uL (2.0-8.3); Neutrophils Percent Auto 47.5 % (45-73); Platelet Count 231 X10*3/uL (160-400); Red Blood Count 5.77 X10*6/uL (4.20-5.50); Red Cell Distribution Width 18.8 % (11.0-16.0); White Blood Count 3.9 X10*3/uL (4.8-10.8)
[2022-05-29 16:10] LABS: Alanine Aminotransferase 16 U/L (0-31); Albumin Level 4.2 g/dL (3.5-5.0); Alkaline Phosphatase 107 U/L (39-117); Anion Gap 13 (12-20); Aspartate Amino Transferase 20 U/L (5-31); Bilirubin Total 0.5 mg/dL (0.0-1.0); Blood Urea Nitrogen 7 mg/dL (9-16); Calcium 9.5 mg/dL (8.4-10.2); Carbon Dioxide 27 mmol/L (22-29); Chloride 105 mmol/L (96-108); Creatinine Clr Calc Pharmacy 53.6; Estimated Glomerular Filt Rate 58; Glucose Random 93 mg/dL (60-115); Magnesium 2.1 mg/dL (1.6-2.6); Potassium 4.1 mmol/L (3.3-5.1); Sodium 141 mmol/L (135-145); Total Protein 7.5 g/dL (6.5-8.0)
--- NOTE | 2022-05-29 16:30 | MHC.EDTECH ---
this pct assumed care of pt at 1630 ,pt vitals sign taken ,pt was hooked up to panel monitor ,rn marie acevedo is aware of pt high bp .
--- NOTE | 2022-05-29 17:42 | MHC.EDTECH ---
this pct lead retail sales associate leilani reyes during pt rectal exam ,1800 vitals sign taken.
--- NOTE | 2022-05-29 17:50 | MHC.EDTECH ---
PATIENT OBSXI STOOL CARD COLLECTED AND SENT TO LAB ,WARM BLANKET GIVEN .
[2022-05-29 18:03] LABS: OBS Int Ctl Valid YES; OBS1 NEGATIVE (NEGATIVE)
[2022-05-29] MEDS: 0.9 % Sodium Chloride 1,000 ML 999 ML IV (18:15)
[2022-05-29] MEDS: hydrALAZINE HCl 20 MG/ML VIAL 5 MG IVPUSH (18:20)
[2022-05-29] MEDS: ondansetron HCL 4 MG/2 ML VIAL IVPUSH (18:20)
--- NOTE | 2022-05-29 18:46 | PC.NURSE ---
PT C/O OF ELEVATED B/P ACCOMPANIED BY MCGILL. SHE REPORTED THAT SHE IS COMPLIANT WITH HER MEDS. B/Ps ON ARRIVAL TO ED 200s OVER 100s. DENIES SOB/CP. NO EXTREMITY SWELLING. 20g IV INSERTED LAC, MEDS GIVEN DOCUMENTED. PT RESTING QUIETLY, NO APPARENT DISTRESS.
--- NOTE | 2022-05-29 19:01 | PC.NURSE ---
assumed care of pt aox4 resting quietly while watching tv 1L NS running at this time no apparent distress
--- NOTE | 2022-05-29 19:24 | PC.NURSE ---
VS assessed. BP at this time is trending down. pt denies pain, headache resolved no apparent distress will ctm
--- NOTE | 2022-05-29 20:03 | PC.NURSE ---
pt was up for discharge vs assessed bp at 210/104 bp is now increasing provider aware pt no longer up for discharge meds to follow to control bp per provider will ctm
[2022-05-29] MEDS: hydroCHLOROthiazide 25 MG TABLET PO (20:11)
[2022-05-29] MEDS: Metoprolol Tartrate 50 MG TABLET PO (20:11)
[2022-05-29] MEDS: Losartan Potassium 50 MG TABLET PO (20:12)
--- NOTE | 2022-05-29 20:19 | PC.NURSE ---
called pharmacy, nifedipine order per MAY not in [facility] pharmacy to send med
--- NOTE | 2022-05-29 20:48 | PC.NURSE ---
called pharmacy about nifedipine order, med not in pyxis
[2022-05-29] MEDS: NIFEdipine ER 30 MG TAB.ER.24 90 MG PO (21:14)
--- NOTE | 2022-05-29 21:14 | PC.NURSE ---
bp 189/117 nifedipine 90 mg administered per MAY delay in med administration d/t needing med to be brought to ED from pharmacy
--- NOTE | 2022-05-29 21:58 | MHC.EDTECH ---
2200 ROUNDING DONE ,VITALS SIGN TAKEN ,ROBERTO LEÓN AND RN ATTILA IS AWARE OF PT HIGH BP
[2022-05-29] MEDS: Labetalol HCL 100 MG/20 ML VIAL IVPUSH (22:23)
== END 2022-05-29 23:17 | disposition home or self-care (01) ==
PROVIDERS: Physician Assistant; Physician Assistant Medical; Emergency Provider Emergency Medicine; PCP General Practice
DX: R79.89 Other specified abnormal findings of blood chemistry (principal); R10.13 Epigastric pain; R11.10 Vomiting, unspecified; I10 Essential (primary) hypertension; Z79.899 Other long term (current) drug therapy
CPT/HCPCS: 36415; 80053; 82272; 83735; 85025; 85610; 85730; 96361; 96374; 96375; 99284; J2405

== ENCOUNTER 2022-08-21 12:14 | Outpatient (REF) | payer MEDICARE, MEDICAID, SELFPAY ==
--- NOTE | ~2022-08-21 | MM_ITS ---
EXAMINATION: MM SCREENING DIGITAL BREAST TOMOSYNTHESIS, BILATERAL CLINICAL INFORMATION: Screening. Asymptomatic. Prior history excisional biopsy on left. The lifetime risk of breast cancer based on the Tyrer-Cuzick Model is 7%. COMPARISON: Mammography: 10/23/2020, 05/24/2019, 04/14/2017 TECHNIQUE: Digital breast tomosynthesis is performed in both the craniocaudal and mediolateral oblique views along with computer-aided detection (CAD). Synthesized 2D images are generated from the tomosynthesis. Additional left view is provided. FINDINGS: There are scattered areas of fibroglandular density (ACR BI-RADS breast composition Category b). There are no significant masses, abnormal calcifications, or other abnormalities. No developing density or architectural abnormality. There are scattered benign round calcifications in each breast. The axilla and skin contours are unremarkable. Biopsy clip marker again noted mid lower inner right breast, possibly second clip marker mid 11:00 right breast. MM/MM tomosynthesis screening BI IMPRESSION: No mammographic evidence of malignancy. ASSESSMENT: BI-RADS 2: Benign RECOMMENDATION: Routine annual mammography screening. This patient's information was entered into a reminder system with a target due date for their next mammogram.
== END 2022-08-21 12:15 | disposition home or self-care (01) ==
LOC: HO.MAMMO 12:14
PROVIDERS: PCP General Practice; Visit Provider General Practice
DX: Z12.31 Encounter for screening mammogram for malignant neoplasm of breast (principal)
CPT/HCPCS: 77063; 77067

== ENCOUNTER 2023-01-21 09:24 | Outpatient (AMB) | payer MEDICARE, MEDICAID, SELFPAY ==
[2023-01-21 10:04] VITALS: BP 180/120; PULSE 65; BMI 30.5
--- NOTE | 2023-01-21 10:04 | HO.NEPHOV_ITS ---
HPI HPI Comments History of Present Illness Details I had the privilege of seeing Ms Lakhani in follow-up of her hypertension and a history of mild CKD in the past. She does not have any headache, visual disturbances, chest pain, shortness of breath, paroxysmal noct urnal dyspnea, orthopnea or pedal edema. Her diet is rich in sodium. She claims to be compliant with her medications. She denies taking excessive nonsteroidal anti-inflammatory medications. She has no blood in the urine. She does not get urinary tract infections. Otherwise she did not have any other new complaints except for uncontrolled hypertension. [facility] Medical History (Updated 01/21/23 @ 10:38 by Brock Cramer MD) Hypertension Depression Diabetes Hypothyroidism CKD (chronic kidney disease) HLD (hyperlipidemia) Social History Alcohol intake: never Patient Tobacco Use Status: Never used Tobacco Vital Signs 01/21/23 10:04 Height 5 ft 1 in Weight 161 lb 6 oz BMI 30.5 BP 180/120 H Blood Pressure Location Rt brachial Position Sitting Pulse 65 Pulse Source Pulse Oximeter Physical Exam Vital Signs: Last Vital Signs Pulse 65 01/21/23 10:04 BP 180/120 H 01/21/23 10:04 BMI result Body Mass Index 30.5 Const General: comfortable and no acute distress Orientation/consciousness: patient oriented x3 HEENT Head: Yes normocephalic Mouth: Normal oral and palatal mucosa present Eyes EOM: EOMs intact bilaterally Neck Neck: Yes supple Resp Auscultation: clear to auscultation bilaterally Cardio Jugular venous distension: no JVD Rate: regular rate Heart sounds: Murmur heart sound present GI Palpation (GI): Soft to palpation Auscultation: normal bowel sounds General: Yes no CVA tenderness Back/Spine/Pelvis Back: no CVA tenderness Skin General skin exam: no rashes or lesions noted Neuro General: patient oriented x3 and moves all extremities Extrem General: Yes no pedal edema Assessment & Plan Assessment & Plan (1) Hypertension: Code(s): I10 - Essential (primary) hypertension Qualifiers: Hypertension type: primary hypertension Qualified Code(s): I10 - Essential (primary) hypertension Plan Ms Saunders as hypertension for long time. Her blood pressure remains uncontrolled. She is on multiple antihypertensive medications. I have increased her losartan to 100 mg daily. She denies taking excessive nonsteroidal anti-inflammatory medications. She has allergy to lisinopril in the past but is tolerating ARB well. She is on lipid-lowering agents. She is also taking nifedipine. I am she has no coronary artery disease or signs of congestive heart failure. She is not a diabetic. She is going to repeat her blood work in a week and see me in follow-up in a week for optimization of medications and continued care. All her questions were answered. Follow-up was given. Time spent for retrieval of data, office visit and documentation 31 minutes. Orders: Orders Calcium Today I10 - Essential (primary) hypertension Electrolytes Today I10 - Essential (primary) hypertension Blood Urea Nitrogen Today I10 - Essential (primary) hypertension Creatinine Today I10 - Essential (primary) hypertension Coding Level of Care Code Est Pt Level 4 (61378) Diagnoses Primary hypertension I10 Hypertension type: primary hypertension
== END 2023-01-21 10:33 | disposition home or self-care (01) ==
PROVIDERS: PCP General Practice; Visit Provider Internal Medicine Nephrology
DX: I10 Essential (primary) hypertension (principal)
CPT/HCPCS: 99214

== ENCOUNTER → 2023-01-21 09:24 | Outpatient (BNVA) | payer MEDICARE, MEDICAID, SELFPAY | PROVIDERS: PCP General Practice; Visit Provider Internal Medicine Nephrology | DX: I10 Essential (primary) hypertension (principal) | CPT/HCPCS: 36415; 80051; 82310; 82565; 84520; 99212 ==

== ENCOUNTER 2023-01-21 10:43 | Outpatient (REF) | payer MEDICARE, MEDICAID, SELFPAY ==
[2023-01-21 13:51] LABS: Anion Gap 12 (12-20); Blood Urea Nitrogen 9 mg/dL (9-16); Calcium 9.4 mg/dL (8.4-10.2); Carbon Dioxide 29 mmol/L (22-29); Chloride 104 mmol/L (96-108); Estimated Glomerular Filt Rate > 60; Potassium 3.7 mmol/L (3.3-5.1); Sodium 141 mmol/L (135-145)
== END 2023-01-21 10:44 | disposition home or self-care (01) ==
LOC: HO.10HDL 10:43
PROVIDERS: Visit Provider Internal Medicine Nephrology
DX: Z13.89 Encounter for screening for other disorder (principal)
CPT/HCPCS: 36415; 80051; 82310; 82565; 84520

== ENCOUNTER 2023-01-27 14:17 | Outpatient (AMB) | payer MEDICARE, MEDICAID, SELFPAY ==
--- NOTE | 2023-01-27 15:02 | HO.NEPHOV_ITS ---
HPI HPI Comments History of Present Illness Details I had the privilege of seeing Ms Lakhani in follow-up of her hypertension and a history of mild CKD in the past. She does not have any headache, visual disturbances, chest pain, shortness of breath, paroxysmal noct urnal dyspnea, orthopnea or pedal edema. Her diet is rich in sodium. She claims to be compliant with her medications. She denies taking excessive nonsteroidal anti-inflammatory medications. She has no blood in the urine. She does not get urinary tract infections. Her BP control is better. [facility] Medical History (Updated 01/27/23 @ 15:24 by Brock Cramer MD) Hypertension Depression Diabetes Hypothyroidism CKD (chronic kidney disease) HLD (hyperlipidemia) Social History Alcohol intake: never Patient Tobacco Use Status: Never used Tobacco Vital Signs 01/27/23 15:03 Height 5 ft 1 in Weight 159 lb 8 oz BMI 30.1 BP 130/90 H Blood Pressure Location Lt brachial Position Sitting Pulse 69 Pulse Source Pulse Oximeter Physical Exam Vital Signs: Last Vital Signs Pulse 69 01/27/23 15:03 BP 130/90 H 01/27/23 15:03 BMI result Body Mass Index 30.1 Const General: comfortable and no acute distress Orientation/consciousness: patient oriented x3 HEENT Head: Yes normocephalic Mouth: Normal oral and palatal mucosa present Eyes EOM: EOMs intact bilaterally Neck Neck: Yes supple Resp Auscultation: clear to auscultation bilaterally Cardio Jugular venous distension: no JVD Rate: regular rate GI Palpation (GI): Soft to palpation Auscultation: normal bowel sounds General: Yes no CVA tenderness Back/Spine/Pelvis Back: no CVA tenderness Skin General skin exam: no rashes or lesions noted Neuro General: patient oriented x3 and moves all extremities Extrem General: Yes no pedal edema Assessment & Plan Assessment & Plan (1) Hypertension: Code(s): I10 - Essential (primary) hypertension Qualifiers: Hypertension type: primary hypertension Qualified Code(s): I10 - Essential (primary) hypertension Plan Ms Saunders as hypertension for long time. Her blood pressure remains uncontrolled. She is on multiple antihypertensive medications. Her BP is better controlled with medication changes. She should continue losartan to 100 mg daily. (She has allergy to lisinopril in the past but is tolerating ARB well). She denies taking excessive nonsteroidal anti-inflammatory medications. She is on lipid-lowering agents. She is also taking nifedipine. She has been having intermittent dizziness when she takes ARB & Nifedipine together. I asked her to take ARB am & take Nifedipine PM. She has no coronary artery disease or signs of congestive heart failure. She is not a diabetic. No medication changes made today. All her questions were answered. Follow-up was given. Time spent for retrieval of data, office visit and documentation 21 m Coding Level of Care Code Est Pt Level 3 (38891) Diagnoses Primary hypertension I10 Hypertension type: primary hypertension
[2023-01-27 15:03] VITALS: BP 130/90; PULSE 69; BMI 30.1
== END 2023-01-27 15:34 | disposition home or self-care (01) ==
PROVIDERS: PCP General Practice; Visit Provider Internal Medicine Nephrology
DX: I10 Essential (primary) hypertension (principal)
CPT/HCPCS: 99213

== ENCOUNTER → 2023-01-27 14:17 | Outpatient (BNVA) | payer MEDICARE, MEDICAID, SELFPAY | PROVIDERS: PCP General Practice; Visit Provider Internal Medicine Nephrology | DX: I10 Essential (primary) hypertension (principal) | CPT/HCPCS: 99212 ==

== ENCOUNTER 2023-02-24 09:18 | Outpatient (AMB) | payer MEDICARE, MEDICAID, SELFPAY ==
--- NOTE | 2023-02-24 09:28 | HO.NEPHOV ---
HPI HPI Comments History of Present Illness Details I had the privilege of seeing Ms Lakhani in follow-up of her hypertension and a history of mild CKD in the past. She does not have any headache, visual disturbances, chest pain, shortness of breath, paroxysmal nocturnal dyspnea, orthopnea or pedal edema. Her diet is rich in sodium. She claims to be compliant with her medications. She denies taking excessive nonsteroidal anti-inflammatory medications. She has no blood in the urine. She does not get urinary tract infections. Her BP control is better [facility] Medical History (Updated 01/27/23 @ 15:24 by Brock Cramer MD) Hypertension Depression Diabetes Hypothyroidism CKD (chronic kidney disease) HLD (hyperlipidemia) Social History Alcohol intake: never Patient Tobacco Use Status: Never used Tobacco Vital Signs 02/24/23 09:29 Height 5 ft 1 in Weight 161 lb 6 oz BMI 30.5 BP 180/110 H Blood Pressure Location Lt brachial Position Sitting Pulse 58 Pulse Source Pulse Oximeter Pulse Oximetry (%) 97 Oxygen Delivery Method Room Air Physical Exam Vital Signs: Last Vital Signs Pulse 58 02/24/23 09:29 BP 180/110 H 02/24/23 09:29 Pulse Ox 97 02/24/23 09:29 Oxygen Delivery Method Room Air 02/24/23 09:29 BMI result Body Mass Index 30.5 Const General: comfortable and no acute distress Orientation/consciousness: patient oriented x3 HEENT Head: Yes normocephalic Mouth: Normal oral and palatal mucosa present Eyes EOM: EOMs intact bilaterally Neck Neck: Yes supple Resp Auscultation: clear to auscultation bilaterally Cardio Jugular venous distension: no JVD Rate: regular rate GI Palpation (GI): Soft to palpation Auscultation: normal bowel sounds General: Yes no CVA tenderness Back/Spine/Pelvis Back: no CVA tenderness Skin General skin exam: no rashes or lesions noted Neuro General: patient oriented x3 and moves all extremities Extrem General: Yes no pedal edema Assessment & Plan Assessment & Plan (1) Hypertension: Code(s): I10 - Essential (primary) hypertension Qualifiers: Hypertension type: primary hypertension Qualified Code(s): I10 - Essential (primary) hypertension Plan Ms Saunders as hypertension for long time. Her blood pressure remains uncontrolled. She is on multiple antihypertensive medications. Her BP is better controlled with medication changes. She should continue losartan to 100 mg daily. (She has allergy to lisinopril in the past but is tolerating ARB well). She denies taking excessive nonsteroidal anti-inflammatory medications. She is on lipid-lowering agents. She is also taking nifedipine. I asked her to take losartan 100 AM . I increased her Nifedipine to 120 mg PM. She has no coronary artery disease or signs of congestive heart failure. She is not a diabetic. No other medication changes made today. Labs ordered. All her questions were answered. Follow-up was given. Orders: Orders Creatinine Today I10 - Essential (primary) hypertension Electrolytes Today I10 - Essential (primary) hypertension Blood Urea Nitrogen Today I10 - Essential (primary) hypertension Medications: New nifedipine ER 120 mg (2 x 60 mg) PO DAILY 60 tabs 4RF 30 days Coding Level of Care Code Est Pt Level 3 (22799) Diagnoses Primary hypertension I10 Hypertension type: primary hypertension Results Reviewed Nephrology Results: Hgb 12.4 g/dl (12.0-16.0) 05/29/22 WBC 3.9 X10*3/uL (4.8-10.8) L 05/29/22 Plt Count 231 X10*3/uL (160-400) 05/29/22 Sodium 141 mmol/L (135-145) 01/21/23 Potassium 3.7 mmol/L (3.3-5.1) 01/21/23 Chloride 104 mmol/L (96-108) 01/21/23 Carbon Dioxide 29 mmol/L (22-29) 01/21/23 BUN 9 mg/dL (9-16) 01/21/23 Creatinine 0.78 mg/dL (0.5-1.4) 01/21/23 Calcium 9.4 mg/dL (8.4-10.2) 01/21/23 Phosphorus 4.2 MG/DL (2.7-4.5) 10/23/19 Urine Protein NEG MG/DL (NEG-TRACE) 01/15/21
[2023-02-24 09:29] VITALS: BP 180/110; PULSE 58; O2SAT 97; BMI 30.5
== END 2023-02-24 09:48 | disposition home or self-care (01) ==
PROVIDERS: PCP General Practice; Visit Provider Internal Medicine Nephrology
DX: I10 Essential (primary) hypertension (principal)
CPT/HCPCS: 99213

== ENCOUNTER → 2023-02-24 09:18 | Outpatient (BNVA) | payer MEDICARE, MEDICAID, SELFPAY | PROVIDERS: PCP General Practice; Visit Provider Internal Medicine Nephrology | DX: I10 Essential (primary) hypertension (principal) | CPT/HCPCS: 99212 ==

== ENCOUNTER 2023-03-18 10:13 | Outpatient (REF) | payer MEDICARE, MEDICAID, SELFPAY | END 2023-03-18 10:14 | disposition home or self-care (01) | LOC: HO.10HDL 10:13 | PROVIDERS: Visit Provider Internal Medicine Nephrology | DX: I10 Essential (primary) hypertension (principal) | CPT/HCPCS: 36415; 80051; 82565; 84520 ==

== ENCOUNTER 2023-03-26 11:14 | Outpatient (AMB) | payer MEDICARE, MEDICAID, SELFPAY ==
[2023-03-26 11:27] VITALS: BP 160/110; PULSE 61; O2SAT 97; BMI 30.1
--- NOTE | 2023-03-26 11:27 | HO.NEPHOV ---
HPI HPI Comments History of Present Illness Details I had the privilege of seeing Ms Lakhani in follow-up of her hypertension and a history of mild CKD in the past. She does not have any headache, visual disturbances, chest pain, shortness of breath, paroxysmal nocturnal dyspnea, orthopnea or pedal edema. Her diet is rich in sodium. She claims to be compliant with her medications. She denies taking excessive nonsteroidal anti-inflammatory medications. She has no blood in the urine. She does not get urinary tract infections. Her BP control is better [facility] Medical History (Updated 01/27/23 @ 15:24 by Brock Cramer MD) Hypertension Depression Diabetes Hypothyroidism CKD (chronic kidney disease) HLD (hyperlipidemia) Social History Alcohol intake: never Patient Tobacco Use Status: Never used Tobacco Vital Signs 03/26/23 11:27 Height 5 ft 1 in Weight 159 lb 6 oz BMI 30.1 BP 160/110 H Blood Pressure Location Lt brachial Position Sitting Pulse 61 Pulse Source Pulse Oximeter Pulse Oximetry (%) 97 Oxygen Delivery Method Room Air Physical Exam Vital Signs: Last Vital Signs Pulse 61 03/26/23 11:27 BP 160/110 H 03/26/23 11:27 Pulse Ox 97 03/26/23 11:27 Oxygen Delivery Method Room Air 03/26/23 11:27 BMI result Body Mass Index 30.1 Const General: comfortable and no acute distress Orientation/consciousness: patient oriented x3 HEENT Head: Yes normocephalic Mouth: Normal oral and palatal mucosa present Eyes EOM: EOMs intact bilaterally Neck Neck: Yes supple Resp Auscultation: clear to auscultation bilaterally Cardio Jugular venous distension: no JVD Rate: regular rate GI Palpation (GI): Soft to palpation Auscultation: normal bowel sounds General: Yes no CVA tenderness Back/Spine/Pelvis Back: no CVA tenderness Skin General skin exam: no rashes or lesions noted Neuro General: patient oriented x3 and moves all extremities Extrem General: Yes no pedal edema Assessment & Plan Assessment & Plan (1) Hypertension: Code(s): I10 - Essential (primary) hypertension Qualifiers: Hypertension type: primary hypertension Qualified Code(s): I10 - Essential (primary) hypertension Plan Ms Saunders as hypertension for long time. Her blood pressure remains uncontrolled. She is on multiple antihypertensive medications. Her BP is better controlled with medication changes. She should continue losartan 100 mg daily. (She has allergy to lisinopril in the past but is tolerating ARB well). She denies taking excessive nonsteroidal anti-inflammatory medications. She is on lipid-lowering agents. She is also taking nifedipine 120 mg daily. I asked her to take Spironolactone 25 mg daily.( side effects including hyperkalemia needs monitoring- blood work ordered for it- pt aware)She has no coronary artery disease or signs of congestive heart failure. She is not a diabetic. No other medication changes made today. All her questions were answered. Follow-up was given Orders: Orders Blood Urea Nitrogen Today I10 - Essential (primary) hypertension Electrolytes Today I10 - Essential (primary) hypertension Creatinine Today I10 - Essential (primary) hypertension Medications: New spironolactone 25 mg PO DAILY 30 tabs 1RF Coding Level of Care Code Est Pt Level 4 (60505) Diagnoses Primary hypertension I10 Hypertension type: primary hypertension Results Reviewed Nephrology Results: Hgb 12.4 g/dl (12.0-16.0) 05/29/22 WBC 3.9 X10*3/uL (4.8-10.8) L 05/29/22 Plt Count 231 X10*3/uL (160-400) 05/29/22 Sodium 140 mmol/L (135-145) 03/18/23 Potassium 3.5 mmol/L (3.3-5.1) 03/18/23 Chloride 104 mmol/L (96-108) 03/18/23 Carbon Dioxide 25 mmol/L (22-29) 03/18/23 BUN 10 mg/dL (9-16) 03/18/23 Creatinine 0.86 mg/dL (0.5-1.4) 03/18/23 Calcium 9.4 mg/dL (8.4-10.2) 01/21/23 Urine Protein NEG MG/DL (NEG-TRACE) 01/15/21
== END 2023-03-26 11:46 | disposition home or self-care (01) ==
PROVIDERS: PCP General Practice; Visit Provider Internal Medicine Nephrology
DX: I10 Essential (primary) hypertension (principal)
CPT/HCPCS: 99214

== ENCOUNTER → 2023-03-26 11:14 | Outpatient (BNVA) | payer MEDICARE, MEDICAID, SELFPAY | PROVIDERS: PCP General Practice; Visit Provider Internal Medicine Nephrology | DX: I10 Essential (primary) hypertension (principal); Z79.899 Other long term (current) drug therapy | CPT/HCPCS: 99212 ==

== ENCOUNTER 2023-04-19 10:23 | Outpatient (REF) | payer MEDICARE, MEDICAID, SELFPAY ==
[2023-04-19 11:30] LABS: Anion Gap 11 (12-20); Blood Urea Nitrogen 8 mg/dL (9-16); Carbon Dioxide 25 mmol/L (22-29); Chloride 106 mmol/L (96-108); Estimated Glomerular Filt Rate > 60; Potassium 3.8 mmol/L (3.3-5.1); Sodium 138 mmol/L (135-145)
== END 2023-04-19 10:24 | disposition home or self-care (01) ==
LOC: HO.10HDL 10:23
PROVIDERS: Visit Provider Internal Medicine Nephrology
DX: I10 Essential (primary) hypertension (principal)
CPT/HCPCS: 36415; 80051; 82565; 84520

== ENCOUNTER 2023-04-23 11:13 | Outpatient (AMB) | payer MEDICARE, MEDICAID, SELFPAY ==
[2023-04-23 11:17] VITALS: BP 140/100; PULSE 76; O2SAT 99; BMI 30.5
--- NOTE | 2023-04-23 11:17 | HO.NEPHOV ---
HPI HPI Comments History of Present Illness Details I had the privilege of seeing Ms Lakhani in follow-up of her hypertension and a history of mild CKD in the past. She does not have any headache, visual disturbances, chest pain, shortness of breath, paroxysmal nocturnal dyspnea, orthopnea or pedal edema. Her diet is rich in sodium. She claims to be compliant with her medications. She denies taking excessive nonsteroidal anti-inflammatory medications. She has no blood in the urine. She does not get urinary tract infections. Her BP control is better but still not optimal [facility] Medical History (Updated 01/27/23 @ 15:24 by Brock Cramer MD) Hypertension Depression Diabetes Hypothyroidism CKD (chronic kidney disease) HLD (hyperlipidemia) Social History Alcohol intake: never Patient Tobacco Use Status: Never used Tobacco Vital Signs 04/23/23 11:17 Height 5 ft 1 in Weight 161 lb 6 oz BMI 30.5 BP 140/100 H Blood Pressure Location Rt brachial Position Sitting Pulse 76 Pulse Source Pulse Oximeter Pulse Oximetry (%) 99 Oxygen Delivery Method Room Air Physical Exam Vital Signs: Last Vital Signs Pulse 76 04/23/23 11:17 BP 140/100 H 04/23/23 11:17 Pulse Ox 99 04/23/23 11:17 Oxygen Delivery Method Room Air 04/23/23 11:17 BMI result Body Mass Index 30.5 Const General: comfortable and no acute distress Orientation/consciousness: patient oriented x3 HEENT Head: Yes normocephalic Mouth: Normal oral and palatal mucosa present Eyes EOM: EOMs intact bilaterally Neck Neck: Yes supple Resp Auscultation: clear to auscultation bilaterally Cardio Jugular venous distension: no JVD Rate: regular rate GI Palpation (GI): Soft to palpation Auscultation: normal bowel sounds General: Yes no CVA tenderness Back/Spine/Pelvis Back: no CVA tenderness Skin General skin exam: no rashes or lesions noted Neuro General: patient oriented x3 and moves all extremities Extrem General: Yes no pedal edema Assessment & Plan Assessment & Plan (1) Hypertension: Code(s): I10 - Essential (primary) hypertension Qualifiers: Hypertension type: primary hypertension Qualified Code(s): I10 - Essential (primary) hypertension Plan Ms Saunders as hypertension for long time. Her blood pressure remains uncontrolled. She is on multiple antihypertensive medications. Her BP is better controlled with medication changes. She should continue losartan 100 mg daily. (She has allergy to lisinopril in the past but is tolerating ARB well). She denies taking excessive nonsteroidal anti-inflammatory medications. She is on lipid-lowering agents. She is also taking nifedipine 120 mg daily. I asked her to increase Spironolactone to 50 mg daily.( side effects including hyperkalemia needs monitoring- blood work ordered for it- pt aware)She has no coronary artery disease or signs of congestive heart failure. She is not a diabetic. No other medication changes made today. All her questions were answered. Follow-up was given Orders: Orders Creatinine Today I10 - Essential (primary) hypertension Blood Urea Nitrogen Today I10 - Essential (primary) hypertension Electrolytes Today I10 - Essential (primary) hypertension Medications: Changed From spironolactone 25 mg PO DAILY 30 tabs 1RF To spironolactone 50 mg (2 x 25 mg) PO DAILY 30 tabs 1RF Coding Level of Care Code Est Pt Level 4 (66172) Diagnoses Primary hypertension I10 Hypertension type: primary hypertension Results Reviewed Nephrology Results: Hgb 12.4 g/dl (12.0-16.0) 05/29/22 WBC 3.9 X10*3/uL (4.8-10.8) L 05/29/22 Plt Count 231 X10*3/uL (160-400) 05/29/22 Sodium 138 mmol/L (135-145) 04/19/23 Potassium 3.8 mmol/L (3.3-5.1) 04/19/23 Chloride 106 mmol/L (96-108) 04/19/23 Carbon Dioxide 25 mmol/L (22-29) 04/19/23 BUN 8 mg/dL (9-16) L 04/19/23 Creatinine 0.78 mg/dL (0.5-1.4) 04/19/23 Calcium 9.4 mg/dL (8.4-10.2) 01/21/23
== END 2023-04-23 11:32 | disposition home or self-care (01) ==
PROVIDERS: PCP General Practice; Visit Provider Internal Medicine Nephrology
DX: I10 Essential (primary) hypertension (principal)
CPT/HCPCS: 99214

== ENCOUNTER → 2023-04-23 11:13 | Outpatient (BNVA) | payer MEDICARE, MEDICAID, SELFPAY | PROVIDERS: PCP General Practice; Visit Provider Internal Medicine Nephrology | DX: I10 Essential (primary) hypertension (principal) | CPT/HCPCS: 99212 ==

== ENCOUNTER 2023-05-21 09:27 | Outpatient (REF) | payer MEDICARE, MEDICAID, SELFPAY ==
[2023-05-21 12:43] LABS: Anion Gap 12 (12-20); Blood Urea Nitrogen 12 mg/dL (9-16); Carbon Dioxide 28 mmol/L (22-29); Chloride 102 mmol/L (96-108); Estimated Glomerular Filt Rate 58; Potassium 4.3 mmol/L (3.3-5.1); Sodium 138 mmol/L (135-145)
== END 2023-05-21 09:28 | disposition home or self-care (01) ==
LOC: HO.10HDL 09:27
PROVIDERS: Visit Provider Internal Medicine Nephrology
DX: I10 Essential (primary) hypertension (principal)
CPT/HCPCS: 36415; 80051; 82565; 84520

== ENCOUNTER 2023-05-24 12:18 | Outpatient (REF) | payer MEDICARE, MEDICAID, SELFPAY ==
[2023-05-24 13:45] LABS: Rheumatoid Factor < 13.0 IU/mL (<15.0)
[2023-05-24 13:49] LABS: C Reactive Protein < 0.10 mg/dL (< or = 0.50)
[2023-05-24 13:58] LABS: TSH reflex Free T4 3.88 uIU/mL (0.32-4.0)
[2023-05-24 14:14] LABS: Erythrocyte Sedimentation Rate 7 MM/HR (0-20)
== END 2023-05-24 12:19 | disposition home or self-care (01) ==
LOC: HO.HHCL 12:18
PROVIDERS: Visit Provider General Practice
DX: M25.50 Pain in unspecified joint (principal); E03.9 Hypothyroidism, unspecified
CPT/HCPCS: 36415; 84443; 85652; 86140; 86431

== ENCOUNTER 2023-05-26 11:07 | Outpatient (AMB) | payer MEDICARE, MEDICAID, SELFPAY ==
[2023-05-26 11:12] VITALS: BP 130/82; PULSE 79; O2SAT 98; BMI 30.7
--- NOTE | 2023-05-26 11:12 | HO.NEPHOV_ITS ---
HPI HPI Comments History of Present Illness Details I had the privilege of seeing Ms Lakhani in follow-up of her hypertension and a history of mild CKD in the past. She does not have any headache, visual disturbances, chest pain, shortness of breath, paroxysmal noct urnal dyspnea, orthopnea or pedal edema. Her diet is rich in sodium. She claims to be compliant with her medications. She denies taking excessive nonsteroidal anti-inflammatory medications. She has no blood in the urine. She does not get urinary tract infections. Her BP control is better but still not optimal [facility] Medical History (Updated 01/27/23 @ 15:24 by Brock Cramer MD) Hypertension Depression Diabetes Hypothyroidism CKD (chronic kidney disease) HLD (hyperlipidemia) Social History Alcohol intake: never Patient Tobacco Use Status: Never used Tobacco Vital Signs 05/26/23 11:12 Height 5 ft 1 in Weight 162 lb 8 oz BMI 30.7 BP 130/82 Blood Pressure Location Lt brachial Position Sitting Pulse 79 Pulse Source Pulse Oximeter Pulse Oximetry (%) 98 Oxygen Delivery Method Room Air Physical Exam Vital Signs: Last Vital Signs Pulse 79 05/26/23 11:12 BP 130/82 05/26/23 11:12 Pulse Ox 98 05/26/23 11:12 Oxygen Delivery Method Room Air 05/26/23 11:12 BMI result Body Mass Index 30.7 Const General: comfortable and no acute distress Orientation/consciousness: patient oriented x3 HEENT Head: Yes normocephalic Mouth: Normal oral and palatal mucosa present Eyes EOM: EOMs intact bilaterally Neck Neck: Yes supple Resp Auscultation: clear to auscultation bilaterally Cardio Jugular venous distension: no JVD Rate: regular rate GI Palpation (GI): Soft to palpation Auscultation: normal bowel sounds General: Yes no CVA tenderness Back/Spine/Pelvis Back: no CVA tenderness Skin General skin exam: no rashes or lesions noted Neuro General: patient oriented x3 and moves all extremities Extrem General: Yes no pedal edema Assessment & Plan Assessment & Plan (1) Hypertension: Code(s): I10 - Essential (primary) hypertension Qualifiers: Hypertension type: primary hypertension Qualified Code(s): I10 - Essential (primary) hypertension Plan Ms Saunders as hypertension for long time. Her blood pressure is controlled now with medication changes.. She is on multiple antihypertensive medications. She should continue losartan 100 mg daily. (She has allergy to lisinopril in the past but is tolerating ARB well). She denies taking excessive nonsteroidal anti- inflammatory medications. She is on lipid-lowering agents. She is also taking nifedipine 120 mg daily. She can continue Spironolactone 50 mg daily.( side effects including hyperkalemia needs monitoring- blood work ordered for it- pt aware)She has no coronary artery disease or signs of congestive heart failure. She is not a diabetic. No other medication changes made today. All her questions were answered. Follow-up was given Orders: Orders Creatinine Today I10 - Essential (primary) hypertension Electrolytes Today I10 - Essential (primary) hypertension Blood Urea Nitrogen Today I10 - Essential (primary) hypertension Coding Level of Care Code Est Pt Level 3 (50294) Diagnoses Primary hypertension I10 Hypertension type: primary hypertension Results Reviewed Nephrology Results: Sodium 138 mmol/L (135-145) 05/21/23 Potassium 4.3 mmol/L (3.3-5.1) 05/21/23 Chloride 102 mmol/L (96-108) 05/21/23 Carbon Dioxide 28 mmol/L (22-29) 05/21/23 BUN 12 mg/dL (9-16) 05/21/23 Creatinine 0.96 mg/dL (0.5-1.4) 05/21/23 Calcium 9.4 mg/dL (8.4-10.2) 01/21/23
== END 2023-05-26 11:42 | disposition home or self-care (01) ==
PROVIDERS: PCP General Practice; Visit Provider Internal Medicine Nephrology
DX: I10 Essential (primary) hypertension (principal)
CPT/HCPCS: 99213

== ENCOUNTER → 2023-05-26 11:07 | Outpatient (BNVA) | payer MEDICARE, MEDICAID, SELFPAY | PROVIDERS: PCP General Practice; Visit Provider Internal Medicine Nephrology | DX: I10 Essential (primary) hypertension (principal) | CPT/HCPCS: 99212 ==

== ENCOUNTER 2023-09-08 13:35 | Outpatient (AMB) | payer MEDICARE, MEDICAID, SELFPAY ==
--- NOTE | 2023-09-08 13:41 | HO.NEPHOV ---
Vital Signs 09/08/23 13:43 Height 5 ft 1 in Weight 164 lb 2 oz BMI 31.0 BP 170/100 H Blood Pressure Location Rt brachial Position Sitting Pulse 79 Pulse Source Pulse Oximeter Pulse Oximetry (%) 98 Oxygen Delivery Method Room Air Intake Visit Reasons: Hypertension/ 3 MO FU/ Conf Process Control Programmer Required: Yes Process Control Programmer Services: Process Control Programmer Present Process Control Programmer Name: Emiliano [id number] Accompanied by: Self / Same As Patient Allergies lisinopril [LISINOPRIL] Allergy (Intermediate, Verified 09/08/23 13:45) ANGIOEDEMA, angioedema? Seafood Allergy (Mild, Uncoded 05/29/22 15:06) DIFFICULTY BREATHING seafood Allergy (Unknown, Uncoded 05/29/22 15:06) throat closes up, stuffy nose seafood; shellfish Allergy (Unknown, Uncoded 05/29/22 15:06) anaphylaxis HPI Comments Details: I had the privilege of seeing Ms Lakhani in follow-up of her hypertension and a history of mild CKD in the past. She does not have any headache, visual disturbances, chest pain, shortness of breath, paroxysmal nocturnal dyspnea, orthopnea or pedal edema. Her diet is rich in sodium. She has not been taking her medications as prescribed as she ran out of them. She denies taking excessive nonsteroidal anti-inflammatory medications. She has no blood in the urine. She does not get urinary tract infections. [facility] Medical History (Updated 01/27/23 @ 15:24 by Brock Cramer MD) Hypertension Depression Diabetes Hypothyroidism CKD (chronic kidney disease) HLD (hyperlipidemia) Social History Alcohol intake: never Patient Tobacco Use Status: Never used Tobacco Review of Systems Const All systems reviewed & are unremarkable except as noted in HPI and below Physical Exam Vital Signs: Last Vital Signs Pulse 79 09/08/23 13:43 BP 170/100 H 09/08/23 13:43 Pulse Ox 98 09/08/23 13:43 Oxygen Delivery Method Room Air 09/08/23 13:43 BMI result Body Mass Index 31.0 Const General: comfortable and no acute distress Orientation/consciousness: patient oriented x3 HEENT Head: Yes normocephalic Mouth: Normal oral and palatal mucosa present Eyes EOM: EOMs intact bilaterally Neck Neck: Yes supple Resp Auscultation: clear to auscultation bilaterally Cardio Jugular venous distension: no JVD Rate: regular rate GI Palpation (GI): Soft to palpation Auscultation: normal bowel sounds General: Yes no CVA tenderness Back/Spine/Pelvis Back: no CVA tenderness Skin General skin exam: no rashes or lesions noted Neuro General: patient oriented x3 and moves all extremities Extrem General: Yes no pedal edema Results Reviewed Nephrology Results: Sodium 138 mmol/L (135-145) 05/21/23 Potassium 4.3 mmol/L (3.3-5.1) 05/21/23 Chloride 102 mmol/L (96-108) 05/21/23 Carbon Dioxide 28 mmol/L (22-29) 05/21/23 BUN 12 mg/dL (9-16) 05/21/23 Creatinine 0.96 mg/dL (0.5-1.4) 05/21/23 Assessment & Plan Assessment & Plan (1) Hypertension: Code(s): I10 - Essential (primary) hypertension Category: Medical Qualifiers: Hypertension type: primary hypertension Qualified Code(s): I10 - Essential (primary) hypertension Plan Ms Saunders as hypertension for long time. Her blood pressure had been controlled with medication changes but she has not been taking them as suggested. I refilled her medications. She should continue losartan 100 mg daily. (She has allergy to lisinopril in the past but is tolerating ARB well). She is also taking nifedipine 120 mg daily. She can continue Spironolactone 50 mg daily.( side effects including hyperkalemia needs monitoring- blood work ordered for it- pt aware). She denies taking excessive nonsteroidal anti-inflammatory medications. She is on lipid-lowering agents. She has no coronary artery disease or signs of congestive heart failure. She is not a diabetic. No other medication changes made today. All her questions were answered. Follow up labs ordered; Follow-up given Orders: Orders Creatinine Today I10 - Essential (primary) hypertension Blood Urea Nitrogen Today I10 - Essential (primary) hypertension Electrolytes Today I10 - Essential (primary) hypertension Medications: New losartan 100 mg (2 x 50 mg) PO DAILY 90 tabs 3RF Refilled spironolactone 50 mg (2 x 25 mg) PO DAILY 30 tabs 4RF nifedipine ER 120 mg (2 x 60 mg) PO DAILY 30 days 60 tabs 4RF Coding Level of Care Code Est Pt Level 4 (59096) Diagnoses Primary hypertension I10 Hypertension type: primary hypertension
[2023-09-08 13:43] VITALS: BP 170/100; PULSE 79; O2SAT 98; BMI 31.0
== END 2023-09-08 14:00 | disposition home or self-care (01) ==
PROVIDERS: PCP General Practice; Visit Provider Internal Medicine Nephrology
DX: I10 Essential (primary) hypertension (principal)
CPT/HCPCS: 99214

== ENCOUNTER → 2023-09-08 13:35 | Outpatient (BNVA) | payer MEDICARE, MEDICAID, SELFPAY | PROVIDERS: PCP General Practice; Visit Provider Internal Medicine Nephrology | DX: I12.9 Hypertensive chronic kidney disease with stage 1 through stage 4 chronic kidney disease, or unspecified chronic kidney disease (principal); N18.9 Chronic kidney disease, unspecified | CPT/HCPCS: 99212 ==

== ENCOUNTER 2023-10-06 11:13 | Outpatient (REF) | payer MEDICARE, MEDICAID, SELFPAY ==
[2023-10-06 14:03] LABS: Anion Gap 16 (12-20); Blood Urea Nitrogen 13 mg/dL (9-16); Carbon Dioxide 24 mmol/L (22-29); Chloride 98 mmol/L (96-108); Estimated Glomerular Filt Rate 49; Sodium 134 mmol/L (135-145)
== END 2023-10-06 11:14 | disposition home or self-care (01) ==
LOC: HO.10HDL 11:13
PROVIDERS: Visit Provider Internal Medicine Nephrology
DX: I10 Essential (primary) hypertension (principal)
CPT/HCPCS: 36415; 80051; 82565; 84520

== ENCOUNTER 2023-10-13 10:15 | Outpatient (AMB) | payer MEDICARE, MEDICAID, SELFPAY ==
--- NOTE | 2023-10-13 10:24 | HO.NEPHOV_ITS ---
Vital Signs 10/13/23 10:25 Height 5 ft 1 in Weight 163 lb 8 oz BMI 30.9 BP 140/84 H Blood Pressure Location Rt brachial Position Sitting Pulse 71 Pulse Source Pulse Oximeter Pulse Oximetry (%) 96 Oxygen Delivery Method Room Air Intake Visit Reasons: Hypertension/ Conf Pararescue Manager Required: Yes Pararescue Manager Name: Vaelrie [id number] Accompanied by: Self / Same As Patient Allergies lisinopril [LISINOPRIL] Allergy (Intermediate, Verified 10/13/23 10:27) ANGIOEDEMA, angioedema? Seafood Allergy (Mild, Uncoded 05/29/22 15:06) DIFFICULTY BREATHING seafood Allergy (Unknown, Uncoded 05/29/22 15:06) throat closes up, stuffy nose seafood; shellfish Allergy (Unknown, Uncoded 05/29/22 15:06) anaphylaxis HPI Comments Details: I had the privilege of seeing Ms Lakhani in follow-up of her hypertension and a history of mild CKD in the past. She does not have any headache, visual disturbances, chest pain, shortness of breath, paroxysmal nocturnal dyspnea, orthopnea or pedal edema. Her diet is rich in sodium. She has not been taking her medications as prescribed as she ran out of them. She denies taking excessive nonsteroidal anti-inflammatory medications. She has no blood in the urine. She does not get urinary tract infections. [facility] Medical History (Updated 01/27/23 @ 15:24 by Brock Cramer MD) Hypertension Depression Diabetes Hypothyroidism CKD (chronic kidney disease) HLD (hyperlipidemia) Social History Alcohol intake: never Patient Tobacco Use Status: Never used Tobacco Review of Systems Const All systems reviewed & are unremarkable except as noted in HPI and below Physical Exam Vital Signs: Last Vital Signs Pulse 71 10/13/23 10:25 BP 132/80 10/13/23 10:25 Pulse Ox 96 10/13/23 10:25 Oxygen Delivery Method Room Air 10/13/23 10:25 BMI result Body Mass Index 30.9 Const General: comfortable and no acute distress Orientation/consciousness: patient oriented x3 HEENT Head: Yes normocephalic Mouth: Normal oral and palatal mucosa present Eyes EOM: EOMs intact bilaterally Neck Neck: Yes supple Resp Auscultation: clear to auscultation bilaterally Cardio Jugular venous distension: no JVD Rate: regular rate GI Palpation (GI): Soft to palpation Auscultation: normal bowel sounds General: Yes no CVA tenderness Back/Spine/Pelvis Back: no CVA tenderness Skin General skin exam: no rashes or lesions noted Neuro General: patient oriented x3 and moves all extremities Extrem General: Yes no pedal edema Results Reviewed Nephrology Results: Sodium 134 mmol/L (135-145) L 10/06/23 Potassium 4.0 mmol/L (3.3-5.1) 10/06/23 Chloride 98 mmol/L (96-108) 10/06/23 Carbon Dioxide 24 mmol/L (22-29) 10/06/23 BUN 13 mg/dL (9-16) 10/06/23 Creatinine 1.12 mg/dL (0.5-1.4) 10/06/23 Assessment & Plan Assessment & Plan (1) Hypertension: Code(s): I10 - Essential (primary) hypertension Category: Medical Qualifiers: Hypertension type: primary hypertension Qualified Code(s): I10 - Essential (primary) hypertension Plan Ms Saunders as hypertension for long time. She should continue losartan 100 mg daily. (She has allergy to lisinopril in the past but is tolerating ARB well). She is also taking nifedipine 120 mg daily. I increased to Spironolactone 75 mg daily.( side effects including hyperkalemia needs monitoring- blood work ordered for it- pt aware). She denies taking excessive nonsteroidal anti- inflammatory medications. She is on lipid-lowering agents. She has no coronary artery disease or signs of congestive heart failure. She is not a diabetic. No other medication changes made today. All her questions were answered. Follow up labs ordered; Follow-up given Orders: Orders Creatinine Today I10 - Essential (primary) hypertension Blood Urea Nitrogen Today I10 - Essential (primary) hypertension Electrolytes Today I10 - Essential (primary) hypertension Medications: Changed From spironolactone 50 mg (2 x 25 mg) PO DAILY 30 tabs 4RF To spironolactone 75 mg (3 x 25 mg) PO DAILY 30 tabs 4RF Coding Level of Care Code Est Pt Level 4 (33428) Diagnoses Primary hypertension I10 Hypertension type: primary hypertension
[2023-10-13 10:25] VITALS: BP 140/84; PULSE 71; O2SAT 96; BMI 30.9
== END 2023-10-13 11:01 | disposition home or self-care (01) ==
PROVIDERS: PCP General Practice; Visit Provider Internal Medicine Nephrology
DX: I10 Essential (primary) hypertension (principal)
CPT/HCPCS: 99214

== ENCOUNTER → 2023-10-13 10:15 | Outpatient (BNVA) | payer MEDICARE, MEDICAID, SELFPAY | PROVIDERS: PCP General Practice; Visit Provider Internal Medicine Nephrology | DX: I10 Essential (primary) hypertension (principal) | CPT/HCPCS: 99212 ==

== ENCOUNTER 2023-11-17 10:15 | Outpatient (REF) | payer MEDICARE, MEDICAID, SELFPAY ==
[2023-11-17 11:34] LABS: Anion Gap 12 (12-20); Blood Urea Nitrogen 7 mg/dL (9-16); Carbon Dioxide 28 mmol/L (22-29); Chloride 104 mmol/L (96-108); Estimated Glomerular Filt Rate > 60; Potassium 3.9 mmol/L (3.3-5.1); Sodium 140 mmol/L (135-145)
== END 2023-11-17 10:16 | disposition home or self-care (01) ==
LOC: HO.10HDL 10:15
PROVIDERS: Visit Provider Internal Medicine Nephrology
DX: I10 Essential (primary) hypertension (principal)
CPT/HCPCS: 36415; 80051; 82565; 84520

== ENCOUNTER 2023-11-24 09:16 | Outpatient (AMB) | payer MEDICARE, MEDICAID, SELFPAY ==
[2023-11-24 09:40] VITALS: BP 140/90; PULSE 79; O2SAT 98; BMI 31.4
--- NOTE | 2023-11-24 09:40 | HO.NEPHOV ---
Vital Signs 11/24/23 09:40 Height 5 ft 1 in Weight 166 lb BMI 31.4 BP 140/90 H Blood Pressure Location Rt brachial Position Sitting Pulse 79 Pulse Source Pulse Oximeter Pulse Oximetry (%) 98 Oxygen Delivery Method Room Air Intake Visit Reasons: Hypertension- LVM Metal Shaping Machine Operator Required: Yes Metal Shaping Machine Operator Services: Metal Shaping Machine Operator Present Metal Shaping Machine Operator Name: Evelina [id number] Accompanied by: Self / Same As Patient Allergies lisinopril [LISINOPRIL] Allergy (Intermediate, Verified 11/24/23 09:42) ANGIOEDEMA, angioedema? Seafood Allergy (Mild, Uncoded 05/29/22 15:06) DIFFICULTY BREATHING seafood Allergy (Unknown, Uncoded 05/29/22 15:06) throat closes up, stuffy nose seafood; shellfish Allergy (Unknown, Uncoded 05/29/22 15:06) anaphylaxis HPI Comments Details: I had the privilege of seeing Ms Lakhani in follow-up of her hypertension and a history of mild CKD in the past. She does not have any headache, visual disturbances, chest pain, shortness of breath, paroxysmal nocturnal dyspnea, orthopnea or pedal edema. Her diet is rich in sodium. She has not been taking her medications as prescribed as she ran out of them. She denies taking excessive nonsteroidal anti-inflammatory medications. She has no blood in the urine. She does not get urinary tract infections. [facility] Medical History (Updated 01/27/23 @ 15:24 by Brock Cramer MD) Hypertension Depression Diabetes Hypothyroidism CKD (chronic kidney disease) HLD (hyperlipidemia) Social History Alcohol intake: never Patient Tobacco Use Status: Never used Tobacco Review of Systems Const All systems reviewed & are unremarkable except as noted in HPI and below Physical Exam Vital Signs: Last Vital Signs Pulse 79 11/24/23 09:40 BP 174/102 H 11/24/23 09:40 Pulse Ox 98 11/24/23 09:40 Oxygen Delivery Method Room Air 11/24/23 09:40 BMI result Body Mass Index 31.4 Const General: comfortable and no acute distress Orientation/consciousness: patient oriented x3 HEENT Head: Yes normocephalic Mouth: Normal oral and palatal mucosa present Eyes EOM: EOMs intact bilaterally Neck Neck: Yes supple Resp Auscultation: clear to auscultation bilaterally Cardio Jugular venous distension: no JVD Rate: regular rate GI Palpation (GI): Soft to palpation Auscultation: normal bowel sounds General: Yes no CVA tenderness Back/Spine/Pelvis Back: no CVA tenderness Skin General skin exam: no rashes or lesions noted Neuro General: patient oriented x3 and moves all extremities Extrem General: Yes no pedal edema Results Reviewed Nephrology Results: Sodium 140 mmol/L (135-145) 11/17/23 Potassium 3.9 mmol/L (3.3-5.1) 11/17/23 Chloride 104 mmol/L (96-108) 11/17/23 Carbon Dioxide 28 mmol/L (22-29) 11/17/23 BUN 7 mg/dL (9-16) L 11/17/23 Creatinine 0.88 mg/dL (0.5-1.4) 11/17/23 Assessment & Plan Assessment & Plan (1) Hypertension: Code(s): I10 - Essential (primary) hypertension Category: Medical Qualifiers: Hypertension type: primary hypertension Qualified Code(s): I10 - Essential (primary) hypertension Plan Ms Saunders as hypertension for long time. She should continue losartan 100 mg daily. (She has allergy to lisinopril in the past but is tolerating ARB well). She is also taking nifedipine 120 mg daily along with Spironolactone 75 mg daily.( side effects including hyperkalemia needs monitoring- blood work ordered for it- pt aware). She denies taking excessive nonsteroidal anti-inflammatory medications. She is on lipid-lowering agents. She has no coronary artery disease or signs of congestive heart failure. She is not a diabetic. No other medication changes made today. All her questions were answered. Follow up labs ordered; Follow-up given Orders: Orders Creatinine Today I10 - Essential (primary) hypertension Electrolytes Today I10 - Essential (primary) hypertension Blood Urea Nitrogen Today I10 - Essential (primary) hypertension Coding Level of Care Code Est Pt Level 4 (07406) Diagnoses Primary hypertension I10 Hypertension type: primary hypertension
== END 2023-11-24 10:00 | disposition home or self-care (01) ==
PROVIDERS: PCP General Practice; Visit Provider Internal Medicine Nephrology
DX: I10 Essential (primary) hypertension (principal)
CPT/HCPCS: 99214

== ENCOUNTER → 2023-11-24 09:16 | Outpatient (BNVA) | payer MEDICARE, MEDICAID, SELFPAY | PROVIDERS: PCP General Practice; Visit Provider Internal Medicine Nephrology | DX: I12.9 Hypertensive chronic kidney disease with stage 1 through stage 4 chronic kidney disease, or unspecified chronic kidney disease (principal); N18.9 Chronic kidney disease, unspecified | CPT/HCPCS: 99212 ==

== ENCOUNTER 2024-02-23 10:12 | Outpatient (AMB) | payer MEDICARE, MEDICAID, SELFPAY ==
--- NOTE | 2024-02-23 11:06 | HO.NEPHOV_ITS ---
Vital Signs 02/23/24 11:07 Height 5 ft 1 in Weight 167 lb 2 oz BMI 31.6 BP 140/90 H Blood Pressure Location Lt brachial Position Sitting Pulse 78 Pulse Source Pulse Oximeter Pulse Oximetry (%) 97 Oxygen Delivery Method Room Air Intake Visit Reasons: Hypertension/ Conf Final Inspector Truck Trailer Required: Yes Final Inspector Truck Trailer Language: Core Rescuer Services: Final Inspector Truck Trailer Offered & Declined ([facility] [place] Final Inspector Truck Trailer services refused) Accompanied by: Self / Same As Patient Allergies lisinopril [LISINOPRIL] Allergy (Intermediate, Verified 02/23/24 11:07) ANGIOEDEMA, angioedema? Seafood Allergy (Mild, Uncoded 05/29/22 15:06) DIFFICULTY BREATHING seafood Allergy (Unknown, Uncoded 05/29/22 15:06) throat closes up, stuffy nose seafood; shellfish Allergy (Unknown, Uncoded 05/29/22 15:06) anaphylaxis HPI Comments Details: Ms Lakhani was seen in follow-up of her hypertension and a history of mild CKD in the past. She does not have any headache, visual disturbances, chest pain, shortness of breath, paroxysmal nocturnal dyspnea, orthopnea or pedal edema. Her diet is rich in sodium. She is taking her medications as prescribed . She denies taking excessive nonsteroidal anti-inflammatory medications. She has no blood in the urine. She does not get urinary tract infections.Her renal functions has been at baseline [facility] Medical History (Updated 01/27/23 @ 15:24 by Brock Cramer MD) Hypertension Depression Diabetes Hypothyroidism CKD (chronic kidney disease) HLD (hyperlipidemia) Social History Alcohol intake: never Patient Tobacco Use Status: Never used Tobacco Review of Systems Const All systems reviewed & are unremarkable except as noted in HPI and below Physical Exam Vital Signs: Last Vital Signs Pulse 78 02/23/24 11:07 BP 140/90 H 02/23/24 11:07 Pulse Ox 97 02/23/24 11:07 Oxygen Delivery Method Room Air 02/23/24 11:07 BMI result Body Mass Index 31.6 Const General: comfortable and no acute distress Orientation/consciousness: patient oriented x3 HEENT Head: Yes normocephalic Mouth: Normal oral and palatal mucosa present Eyes EOM: EOMs intact bilaterally Neck Neck: Yes supple Resp Auscultation: clear to auscultation bilaterally Cardio Jugular venous distension: no JVD Rate: regular rate GI Palpation (GI): Soft to palpation Auscultation: normal bowel sounds General: Yes no CVA tenderness Back/Spine/Pelvis Back: no CVA tenderness Skin General skin exam: no rashes or lesions noted Neuro General: patient oriented x3 and moves all extremities Extrem General: Yes no pedal edema Results Reviewed Nephrology Results: Sodium 140 mmol/L (135-145) 11/17/23 Potassium 3.9 mmol/L (3.3-5.1) 11/17/23 Chloride 104 mmol/L (96-108) 11/17/23 Carbon Dioxide 28 mmol/L (22-29) 11/17/23 BUN 7 mg/dL (9-16) L 11/17/23 Creatinine 0.88 mg/dL (0.5-1.4) 11/17/23 Assessment & Plan Assessment & Plan (1) Hypertension: Code(s): I10 - Essential (primary) hypertension Category: Medical Qualifiers: Hypertension type: primary hypertension Qualified Code(s): I10 - Essential (primary) hypertension Plan Ms Saunders as hypertension for long time. She should continue losartan 100 mg daily. (She has allergy to lisinopril in the past but is tolerating ARB well). She is also taking nifedipine 120 mg daily along with Spironolactone 75 mg daily.( side effects including hyperkalemia needs monitoring- blood work ordered for it- pt aware). She denies taking excessive nonsteroidal anti-inflammatory medications. She is on lipid-lowering agents. She has no coronary artery disease or signs of congestive heart failure. She is not a diabetic. No other medication changes made today. All her questions were answered. Coding Level of Care Code Est Pt Level 4 (33874) Diagnoses Primary hypertension I10 Hypertension type: primary hypertension
[2024-02-23 11:07] VITALS: BP 140/90; PULSE 78; O2SAT 97; BMI 31.6
== END 2024-02-23 11:17 | disposition home or self-care (01) ==
PROVIDERS: PCP General Practice; Visit Provider Internal Medicine Nephrology
DX: I10 Essential (primary) hypertension (principal)
CPT/HCPCS: 99214

== ENCOUNTER → 2024-02-23 10:12 | Outpatient (BNVA) | payer MEDICARE, MEDICAID, SELFPAY | PROVIDERS: PCP General Practice; Visit Provider Internal Medicine Nephrology | DX: I12.9 Hypertensive chronic kidney disease with stage 1 through stage 4 chronic kidney disease, or unspecified chronic kidney disease (principal); N18.9 Chronic kidney disease, unspecified | CPT/HCPCS: 99212 ==

== ENCOUNTER 2024-04-26 10:37 | Outpatient (REF) | payer OTHER, SELFPAY ==
--- OUTSIDE RECORDS SUMMARY | 2024-04-26 12:25 | XMS_ITS | Encounter Summary ---
Author Organization [employer] Address [address] [place] [address] Care Team Providers Care Manager Documentation Name Role Phone Zuleima Ward MD Primary Care Provider [phone] Reason for Visit * Reason Comments Med Refill Encounter Details Date Type Department Care Team ([facility] st Contact Info) Description 04/19/2024 Refill [facility] [address] [place], [place] [phone] Zuleima Ward MD [address] [place] [address] Social History Tobacco Use Types Packs/Day Years Used Date Smoking Tobacco: Never Passive Smoke Exposure: Never Smokeless Tobacco: Never Alcohol Use Standard Drinks/Week Comments Never 0 (1 standard drink = 0.6 oz pur e alcohol) Depression Answer Date Recorded Patient Health Questionnaire-9 Score 3 05/24/2023 Patient Health Questionnaire-9 Score 3 05/24/2023 Last PHQ-9: Questionnaire Data Not on file 0 05/24/2023 Housing Stability Answer Date Recorded What is your housing situation today? I have joe lema 05/24/[address] you li ve. Do you have problems with any of the following? None of the above 05/24/2023 Food Insecurity Answer Date Recorded Within the past 12 months, y ou worried that your food would run out before you got money to buy more: Never True 05/24/2023 Within the past 12 months,th e food you bought just didn't last and you didn't have enough money to get more: Never True 01/2024 Transportation Answer Date Recorded In the past 12 months, has l ack of transportation kept you from medical appts, meetings, work or from getting things needed for daily living? Yes, it has kept me from medical appointments or getting medications.;No 05/24/2023 Utilities Answer Date Recorded In the past 12 months, has t he electric, gas, oil or water company threatened to shut off services in your home? No 05/24/2023 Depression Answer Date Recorded Patient Health Questionnaire-2 Score 2 05/24/2023 Comments Unknown Sex and Gender Information Value Date Recorded Sex Assigned at Female 01/12/2022 10:14 AM EDT Legal Sex Female 10:14 AM EDT Gender Identity Female 01/12/2022 10:14 AM EDT Sexual Orientation Straight 01/12/2022 10 :14 AM EDT documented as of this encounter Plan of Treatment Not on file documented as of this encounter Visit Diagnoses Not on filedocumented in this encounter Additional Health Concerns Assessment Noted Time PHQ-9 Depression Total Score: 3 05/24/19 24 11:36 AM EDT documented as of this encounter Care Teams Manager Documentation Relationship Specialty Start Date End Date Zuleima Ward MD [address] [place] [id number] PCP - General Family Medicine 04/25/20 documented as of this encounter
--- OUTSIDE RECORDS SUMMARY | 2024-04-26 12:25 | XMS_ITS | Encounter Summary ---
Author Organization [employer] Address [address] [place] [address] [address] [place] [address] Care Team Providers Care Pet Care Technician Name Role Phone Zuleima Ward MD Primary Care Provider [phone] Reason for Referral * Imaging (Routine) - Authorized Specialty Diagnoses / Procedures Referred By Lynne gardner Referred To Contact Radiology Diagnoses Menopausal and postmenopausal disorder Procedures BD DEXA Axial Ani Ramires CNP [address] [place] [address] Phone: tel: fax: [address] Phone: tel: fax: Referral ID Status Reason Start Date Expiration Date V isits Requested Visits Authorized [id number] Authorized 04/26/2024 04/26/2025 1 1 Encounter Details Date Type Department Care Team (Late st Contact Info) Description 04/26/2024 Orders Only [facility] [address] [place], [place] [phone] Ani Ramires CNP [address] [place], [place] [phone] Menopausal and postmenopausal disorder (Primary Dx) Social History Tobacco Use Types Packs/Day Years Used Date Smoking Tobacco: Never Passive Smoke Exposure: Never Smokeless Tobacco: Never Alcohol Use Standard Drinks/Week Comments Never 0 (1 standard drink = 0.6 oz pur e alcohol) Depression Answer Date Recorded Patient Health Questionnaire-9 Score 1 04/21/2024 Patient Health Questionnaire-9 Score 1 04/21/2024 Last PHQ-9: Questionnaire Data Not on file 0 04/21/2024 Housing Stability Answer Date Recorded What is [...] from getting things needed for daily living? No 04/21/2024 Utilities Answer Date Recorded In the past 12 months, has t he electric, gas, oil or water company threatened to shut off services in your home? No 05/24/2023 Depression Answer Date Recorded Patient Health Questionnaire-2 Score 0 04/21/2024 Internet Access Answer Date Recorded Internet Access Q1 Yes 04/21/2024 Internet Access Q2 Not on file 04/21/2024 Comments Unknown Sex and Gender Information Value Date Recorded Sex Assigned at Female 01/12/2022 10:14 AM EDT Legal Sex Female 10:14 AM EDT Gender Identity Female 01/12/2022 10:14 AM EDT Sexual Orientation Straight 01/12/2022 10 :14 AM EDT documented as of this encounter Plan of Treatment Scheduled Orders Name Type Priority Associated Diagnoses Orde r Schedule BD DEXA Axial Imaging Routine Menopausal and postmenopausal disorder Expected: 04/26/2024, Expires: 04/26/2025 documented as of this encounter Visit Diagnoses Diagnosis Menopausal and postmenopausal disorder- Primary Unspecified menopausal and postmenopausal disorder documented in this encounter Additional Health Concerns Assessment Noted Time PHQ-9 Depression Total Score: 1 04/21/19 25 1:50 PM EST documented as of this encounter Care Teams Pet Care Technician Relationship Specialty Start Date End Date Zuleima Ward MD [address] [place] [address] PCP - General Family Medicine 04/25/20 documented as of this encounter
--- OUTSIDE RECORDS SUMMARY | 2024-04-26 12:25 | XMS_ITS | Encounter Summary ---
Author Organization [employer] Address [address] [place] [address] [address] [place] [address] Care Team Providers Care Project Coordinator Name Role Phone Zuleima Ward MD Primary Care Provider [phone] Encounter Details Date Type Department Care Team (Late st Contact Info) Description 04/25/2024 Telephone [employer] [facility] [address] [place], [place] [phone] Ani Ramires CNP [address] [place] [address] Social History Tobacco Use Types Packs/Day Years [...] AM EDT documented as of this encounter Miscellaneous Notes * Telephone Encounter - Trae Richards - 04/25/2024 8:22 AM EST Incoming fax from [facility] [place] requesting Bone Density order to be update to a more specific reason for exam. Please include symptoms which are indicative of Osteoporosis. documented in this encounter Plan of Treatment Not on file documented as of this encounter Visit Diagnoses Not on filedocumented in this encounter Additional Health Concerns Assessment Noted Time PHQ-9 Depression Total Score: 1 04/21/19 25 1:50 PM EST documented as of this encounter Care Teams Project Coordinator Relationship Specialty Start Date End Date Zuleima Ward MD [address] [place] [id number] PCP - General Family Medicine 04/25/20 documented as of this encounter
--- OUTSIDE RECORDS SUMMARY | 2024-04-26 12:25 | XMS_ITS | Encounter Summary ---
Author Organization [employer] Address [address] [facility] 7t [place] [address] Care Team Providers Care Classifier Tender Name Role Phone Zuleima Ward MD Primary Care Provider [phone] Reason for Visit * Reason Onset Date Comments call back needed 03/29/2024 Encounter Details Date Type Department Care Team ([facility] st Contact Info) Description 03/29/2024 Telephone [facility] [address] [place] [address] Zuleima Ward MD [address] [place] [address] call back needed Social History Tobacco Use Types Packs/Day Years [...] encounter Miscellaneous Notes * Telephone Encounter - Nusrat Hernandez RN - 03/29/2024 3:11 PM EST TC placed to pt with S court interpreter Shima #[id number] to inquire about this morning's elevated blood pressure readings. The reading this morning was reported to be 176/118. Pt could not confirm this number but remains asymptomatic at this time. Pt did previously come to the unit for a BP nurse check. Last two checks were on 02/01 and 12/19 respectively. Pt was offered to come in for a BP check with the Red Team nurses but the pt denied. Pt advised if BP continues to be elevated and or/symptoms develop to call back the office. Next appt is scheduled for 04/21/23 at 215. Pt agreeable and stated understanding * Telephone Encounter - Nusrat Hernandez RN - 03/29/2024 2:23 PM EST TC placed to pt and LVM to call back the office * Telephone Encounter - Ervin Huntley - 03/29/2024 2:11 PM EST Tc from José with [facility] states did her routine in home visit today and noticed patients b/p was high at 176/118 . Yonas states pt reporting b/p always high . Denies any symptoms , but requesting for a nurse to outreach to pt . documented in this encounter Plan of Treatment Not on file documented as of this encounter Visit Diagnoses Not on filedocumented in this encounter Additional Health Concerns Assessment Noted Time PHQ-9 Depression Total Score: 3 05/24/19 24 11:36 AM EDT documented as of this encounter Care Teams Classifier Tender Relationship Specialty Start Date End Date Zuleima Ward MD [address] [place] [address] PCP - General Family Medicine 04/25/20 documented as of this encounter
--- OUTSIDE RECORDS SUMMARY | 2024-04-26 12:25 | XMS_ITS | Encounter Summary ---
Author Organization [employer] Address [address] [facility] 7t [place] [address] Care Team Providers Care Manager Title Name Role Phone Zuleima Ward MD Primary Care Provider [phone] Reason for Visit * Reason Comments Pre-visit Planning SDOH unable to reach LVM Encounter Details Date Type Department Care Team (Late st Contact Info) Description 04/14/2024 Patient Outreach [facility] [address] [place], [place] [phone] Zuleima Ward MD [address] [place] [address] Pre-visit Planning (SDOH unable to reach LVM) Social History Tobacco Use Types Packs/Day Years [...] AM EDT documented as of this encounter Progress Notes * Hanna Crowley - 04/14/2024 11:06 AM EST CC Hanna Jefferson placed outbound call to patient to complete pre-visit planning. No answer at this time. Patient name and were not confirmed. CC left voicemail requesting return call. Direct contactinformation provided. documented in this encounter Plan of Treatment Not on file documented as of this encounter Visit Diagnoses Not on filedocumented in this encounter Additional Health Concerns Assessment Noted Time PHQ-9 Depression Total Score: 3 05/24/19 24 11:36 AM EDT documented as of this encounter Care Teams Manager Title Relationship Specialty Start Date End Date Zuleima Ward MD [address] [place] [id number] PCP - General Family Medicine 04/25/20 documented as of this encounter
--- OUTSIDE RECORDS SUMMARY | 2024-04-26 12:25 | XMS_ITS | Encounter Summary ---
Author Organization [employer] Address [address] [place] [address] 7t [place] [address] Care Team Providers Care Maintenance Technician 2Nd Shift Name Role Phone Zuleima Ward MD Primary Care Provider [phone] Reason for Visit * Reason Onset Date Comments Change PCP 02/02/2024 Encounter Details Date Type Department Care Team ([facility] st Contact Info) Description 02/02/2024 Telephone [facility] [address] [place] [address] Zuleima Ward MD [address] [place] [address] Change PCP Social History Tobacco Use Types Packs/Day Years [...] encounter Miscellaneous Notes * Telephone Encounter - Steven Pfeiffer - 02/02/2024 10:34 AM EST Tc from pt requesting PCP change, Heating Worker sees outgoing call was attempted back in September, marine underwriter attempted to schedule TP appt for 03/31/23 with JD [employer]AR[employer] DEVELOPER Renetta Alan however pt declined appt, states would like a korean speaking provider. Please contact at [phone] Cymraes documented in this encounter Plan of Treatment Not on file documented as of this encounter Visit Diagnoses Not on filedocumented in this encounter Additional Health Concerns Assessment Noted Time PHQ-9 Depression Total Score: 3 05/24/19 24 11:36 AM EDT documented as of this encounter Care Teams Maintenance Technician 2Nd Shift Relationship Specialty Start Date End Date Zuleima Ward MD [address] [place] [id number] PCP - General Family Medicine 04/25/20 documented as of this encounter
--- OUTSIDE RECORDS SUMMARY | 2024-04-26 12:25 | XMS_ITS | Encounter Summary ---
Author Organization [employer] Address [address] [facility] 7t [place] [address] Care Team Providers Care Campus Recruiting Intern Name Role Phone Zuleima Ward MD Primary Care Provider [phone] Encounter Details Date Type Department Care Team ([facility] st Contact Info) Description 12/15/2023 Orders Only [facility] [address] [place] [address] Zuleima Ward MD [address] [place] [address] Social History Tobacco Use Types Packs/Day Years [...] documented as of this encounter Care Teams Campus Recruiting Intern Relationship Specialty Start Date End Date Zuleima Ward MD [address] [place] [id number] PCP - General Family Medicine 04/25/20 documented as of this encounter
--- OUTSIDE RECORDS SUMMARY | 2024-04-26 12:25 | XMS_ITS | Encounter Summary ---
Author Organization [employer] [facility] Address [address] [place] [address] 7[address] [place] [address] Care Team Providers Care Director Health Name Role Phone Zuleima Ward MD Primary Care Provider [phone] Encounter Details Date Type Department Care Team (Late st Contact Info) Description 11/18/2022 Orders Only [facility] [address] [place] [address] Provider, MD Jesica Social History Tobacco Use Types Packs/Day Years Used Date Smoking Tobacco: Never Passive Smoke Exposure: Never Smokeless Tobacco: Never Alcohol Use Standard Drinks/Week Comments Never 0 (1 standard drink = 0.6 oz pur e alcohol) Comments Unknown Sex and Gender Information Value Date Recorded Sex Assigned at Female 01/12/2022 10:14 AM EDT Legal Sex Female 10:14 AM EDT Gender Identity Female 01/12/2022 10:14 AM EDT Sexual Orientation Straight 01/12/2022 10 :14 AM EDT documented as of this encounter Plan of Treatment Not on file documented as of this encounter Procedures Procedure Name Priority Date/Time Associated Diagnosis Comments COLONOSCOPY Routine 09/03/2017 documented in this encounter Results * Hm Colonoscopy (09/03/2017) Historical Provider HEALTH MAINTENANCE Final Result documented in this encounter Visit Diagnoses Not on filedocumented in this encounter Care Teams Director Health Relationship Specialty Start Date End Date Zuleima Ward MD [address] [place] [address] PCP - General Family Medicine 04/25/20 documented as of this encounter
--- OUTSIDE RECORDS SUMMARY | 2024-04-26 12:25 | XMS_ITS | Encounter Summary ---
Author Organization [employer] Address [address] [place] [address] [address], [place] [address] Care Team Providers Care Aircraft Cleaner Name Role Phone Zuleima Ward MD Primary Care Provider [phone] Reason for Referral * Consultation (Routine) - Authorized Specialty Diagnoses / Procedures Referred By Lynne gardner Referred To Contact Gastroenterology Diagnoses Routine health maintenance Ani Ramires CNP [address] [place] [address] Phone: tel: fax: [address] Phone: tel: fax: Referral ID Status Reason Start Date Expiration Date Visits Requested Visits Authorized [id number] Authorized Specialty Services Required 04/21/2024 04/21/2025 1 1 * Imaging (Routine) - Canceled Specialty Diagnoses / Procedures Referred By Lynne gardner Referred To Contact Radiology Diagnoses At risk for decreased bone density Procedures BD DEXA Axial Ani Ramires CNP [address] [place] [address] Phone: tel: fax: [address] Phone: tel: fax: Referral ID Status Reason Start Date Expiration Date V isits Requested Visits Authorized [id number] Canceled 04/21/2024 04/21/2025 1 1 * Consultation (Routine) - Authorized Specialty Diagnoses / Procedures Referred By Lynne gardner Referred To Contact Pharmacy Diagnoses Essential hypertension Ani Ramires CNP [address] [place] [address] Phone: tel: fax: Referral ID Status Reason Start Date Expiration Date Visits Requested Visits Authorized [id number] Authorized Consult and Treat 04/21/2024 04/21/2025 6 6 * Imaging (Routine) - Authorized Specialty Diagnoses / Procedures Referred By Lynne gardner Referred To Contact Radiology Diagnoses Routine health maintenance Procedures BI Mammogram Screening Tomosynthesis Bilateral Ani Ramires CNP [address] [place] [address] Phone: tel: fax: [address] Phone: tel: fax: Referral ID Status Reason Start Date Expiration Date V isits Requested Visits Authorized [id number] Authorized 04/21/2024 04/21/2025 1 1 Reason for Visit * Reason Comments Transfer Patient Encounter Details Date Type Department Care Team (Latest Contact Info) Description 04/21/2024 2:15 PM EST Office Visit [facility] [address] [place] [phone] Ani Ramires CNP [address] [place] [address] Routine health maintenance (Primary Dx); Anxiety; Essential hypertension; Encounter for immunization; At risk for decreased bone density; Hyperlipidemia, unspecified hyperlipidemia type Social History Tobacco Use Types Packs/Day Years [...] AM EDT documented as of this encounter Last Filed Vital Signs Vital Sign Reading Time Taken Comments Blood Pressure 134/82 04/21/2024 2:33 PM EST BP recheck Pulse 65 04/21/2024 2:33 PM EST Temperature - - Respiratory Rate 20 04/21/2024 1:48 PM EST Oxygen Saturation 96% 04/21/2024 2:3 3 PM EST Inhaled Oxygen Concentration - - Weight 74.8 kg (164 lb 12.8 oz) 025 1:48 PM EST Height 154.9 cm (5' 1 ) 04/21/2024 1:48 PM EST Body Mass Index 31.14 04/21/2024 1:48 PM EST documented in this encounter Progress Notes * Ani Ramires CNP - 04/21/2024 2:15 PM EST Subjective: Danni Lakhani is a 68 y.o. female who presents to the office for a transfer patient visit. Previous PCP Renetta Ward MD. Interim history: Pt has a CHW with NPTV. Pt has been having elevated BP. Followed by [facility] for her hypertension and mild CKD. Has f/u in may. Per pulling unit floorhand note: Meds include losartan 100 mg, nifedipine 120 mg spironolactone 75 mg. Completed med reconciliation in office today with patient, she provided a printed out med list and confirmed that she takes all her blood pressure medications however she was taking the inaccurate dose. When I contacted the pharmacy they confirmed her last filled meds: nifedipine 90mg, spironolactone 25 mg, losartan 100 mg, hydrochlorothiazide 25 mg, and hydralazine 75mg. Checks BP at home, last reading 134/75. Current concerns: High blood pressure Patient Active Problem List Diagnosis Acquired hypothyroidism Cobalamin deficiency Depressive disorder Essential hypertension Hyperlipidemia Rosacea Sinus bradycardia Vitamin D deficiency Stage 3 chronic kidney disease (CMS/HCC) Prediabetes Proteinuria Polyarthralgia Routine health maintenance Anxiety At risk for decreased bone density No past surgical history on file. Family History Problem Relation Name Age of Onset Hypertension Mother Diabetes type II Daughter Social History Living situation: Employment/Education: Diet/exercise: eats diet rich in vegetables and whole grains Substance use: none Mental health: Patient Health Questionnaire-9 Score: 1 (04/21/2024 1:50 PM) Patient Health Questionnaire-2 Score: 0 (04/21/2024 1:50 PM) Thoughts that you would be better off or hurting yourself in some way: Not at all (04/21/2024 1:50 PM) No data recorded No LMP recorded. Allergies Allergen Reactions Fish Allergy Other reaction(s): throat closes up, stuffy nose Lisinopril Other Other reaction(s): angioedema ? Review of Systems Constitutional: Negative for chills, fatigue, fever and unexpected weight change. Respiratory: Negative for choking, chest tightness, shortness of breath and wheezing. Cardiovascular: Negative for chest pain, palpitations and leg swelling. Gastrointestinal: Negative for abdominal pain, constipation, diarrhea, nausea and vomiting. Endocrine: Negative. Genitourinary: Negative. Musculoskeletal: Negative. Neurological: Negative. Psychiatric/Behavioral: Negative. Vitals: 04/21/24 1348 04/21/24 1433 BP: (!) 161/92 134/82 BP Location: Left arm Left arm Patient Position: Sitting Sitting BP Cuff Size: Adult Adult Pulse: 75 65 Resp: 20 SpO2: 97% 96% Weight: 164 lb 12.8 oz (74.8 kg) Height: 5' 1 (1.549 m) Physical Exam Constitutional: General: She is not in acute distress. Appearance: Normal appearance. She is not ill-appearing. HENT: Head: Normocephalic and atraumatic. Right Ear: Tympanic membrane, ear canal and external ear normal. There is no impacted cerumen. Left Ear: Tympanic membrane, ear canal and external ear normal. There is no impacted cerumen. Nose: No congestion or rhinorrhea. Mouth/Throat: Mouth: Mucous membranes are moist. Pharynx: No oropharyngeal exudate or posterior oropharyngeal erythema. Eyes: General: No scleral icterus. Right eye: No discharge. Left eye: No discharge. Extraocular Movements: Extraocular movements intact. Pupils: Pupils are equal, round, and reactive to light. Cardiovascular: Rate and Rhythm: Normal rate and regular rhythm. Pulses: Normal pulses. Heart sounds: Normal heart sounds. No murmur heard. No friction rub. No gallop. Pulmonary: Effort: Pulmonary effort is normal. No respiratory distress. Breath sounds: Normal breath sounds. No stridor. No wheezing, rhonchi or rales. Chest: Chest wall: No tenderness. Abdominal: General: Abdomen is flat. Bowel sounds are normal. There is no distension. Palpations: Abdomen is soft. There is no mass. Tenderness: There is no abdominal tenderness. There is no guarding. Musculoskeletal: General: Normal range of motion. Cervical back: Normal range of motion and neck supple. No tenderness. Right lower leg: No edema. Left lower leg: No edema. Lymphadenopathy: Cervical: No cervical adenopathy. Skin: General: Skin is warm and dry. Capillary Refill: Capillary refill takes less than 2 seconds. Neurological: General: No focal deficit present. Mental Status: She is alert and oriented to person, place, and time. Psychiatric: Mood and Affect: Mood normal. Behavior: Behavior normal. Thought Content: Thought content normal. Judgment: Judgment normal. Routine Screening and Health Maintenance Optometry: Yes, UTD, vision home Dentist: No , needs new dental home BMD: due for screening ASCVD risk: 68 y.o. female The 10-year ASCVD risk score (Shanna RAMIREZ, et al., 2019) is: 11.7% Values used to calculate the score: Age: 68 years Sex: Female Is Non- : No Diabetic: No Tobacco smoker: No Systolic Blood Pressure: 134 mmHg Is BP treated: Yes HDL Cholesterol: 47 mg/dL Total Cholesterol: 201 mg/dL Routine Cancer Screening Breast CA: due, orders placed Cervical CA: last pap was in 2020, NILM, HPV- neg, next due in 2025 Problem List Items Addressed This Visit Essential hypertension Current Assessment & Plan Updated pt med list to reflect pulling unit floorhand recommendations. Pt med regimen should be the following: Nifedipine 120 mg, Losartan 100mg, Spironolactone 75 mg, hydrochlorothiazide 25 mg, Hydralazine 75 mg. Advised pt of these changes Will refer to CDTM for HTN management Advised pt to continue checking BP at home Discussed ED precautions Pt will get bloodwork in 1 week, will trend potassium levels F/u in 3 months for chronic conditions Relevant Medications NIFEdipine CC (Adalat CC) 60 MG 24 hr tablet spironolactone (Aldactone) 25 MG tablet hydroCHLOROthiazide (HYDRODiuril) 25 MG tablet Other Relevant Orders Basic Metabolic Panel Referral to Pharmacy CDTM Hyperlipidemia Current Assessment & Plan Will update FLP-orders placed Routine health maintenance - Primary Current Assessment & Plan Pt due for routine bloodwork, pt also on spironolactone will order BMP as well to trend potassium, pt plans to complete bloodwork in 1 week as we have just increased her spironolactone from 25 mg to 75 mg per her pulling unit floorhand's recommendations. Mammo due- orders placed DEXA due- orders placed Colonoscopy due- orders placed Pt needs new dental home, will place referral, pt wants outgoing referral Pt agrees to covid/flu vaccination today Relevant Orders Hemoglobin A1c BI Mammogram Screening Tomosynthesis Bilateral Lipid Panel, Standard Hepatic Function Panel Referral to Gastroenterology Anxiety Current Assessment & Plan Refilled patient MH meds per pt request F/u in 3 months for chronic conditions Relevant Medications OXcarbazepine (Trileptal) 300 MG tablet FLUoxetine (PROzac) 10 MG capsule At risk for decreased bone density Current Assessment & Plan Recommended BMD screening per guidelines- orders placed Relevant Orders BD DEXA Axial Other Visit Diagnoses Encounter for immunization Relevant Orders FLU VACCINE TRIVALENT HIGH DOSE 65 yrs + (Completed) COVID-19 VACCINE (Pfizer) [id number] 12 yrs + (Completed) [facility] PROJECT CONSTRUCTION ASSISTANT MANAGER Attestation PROJECT CONSTRUCTION ASSISTANT MANAGER Resident Attestation: Patient was seen and evaluated by Ani Ramires CNP, in collaboration with Mt Cullen MD who has reviewed my assessment and plan. I, Mt Cullen MD, have reviewed the resident's note and agree with the assessment & plan of care as documented above. Visit Conducted in: [employer] Translation by: Provided by [facility] staff member Jackie Haney MA , documented in this encounter Miscellaneous Notes * Assessment & Plan Note - Ani Ramires CNP - 04/21/2024 3:21 PM EST Associated Problem(s): At risk for decreased bone density Recommended BMD screening per guidelines- orders placed * Assessment & Plan Note - Ani Ramires CNP - 04/21/2024 3:21 PM EST Associated Problem(s): Hyperlipidemia Will update FLP-orders placed * Assessment & Plan Note - Ani Ramires CNP - 04/21/2024 3:19 PM EST Associated Problem(s): Anxiety Refilled patient MH meds per pt request F/u in 3 months for chronic conditions * Assessment & Plan Note - Ani Ramires CNP - 04/21/2024 3:19 PM EST Associated Problem(s): Essential hypertension Updated pt med list to reflect pulling unit floorhand recommendations. Pt med regimen should be the following: Nifedipine 120 mg, Losartan 100mg, Spironolactone 75 mg, hydrochlorothiazide 25 mg, Hydralazine 75 mg. Advised pt of these changes Will refer to CDTM for HTN management Advised pt to continue checking BP at home Discussed ED precautions Pt will get bloodwork in 1 week, will trend potassium levels F/u in 3 months for chronic conditions * Assessment & Plan Note - Ani Ramires CNP - 04/21/2024 3:13 PM EST Associated Problem(s): Routine health maintenance Pt due for routine bloodwork, pt also on spironolactone will order BMP as well to trend potassium, pt plans to complete bloodwork in 1 week as we have just increased her spironolactone from 25 mg to 75 mg per her pulling unit floorhand's recommendations. Mammo due- orders placed DEXA due- orders placed Colonoscopy due- orders placed Pt needs new dental home, will place referral, pt wants outgoing referral Pt agrees to covid/flu vaccination today documented in this encounter Plan of Treatment Scheduled Orders Name Type Priority Associated Diagnoses Orde r Schedule Hemoglobin A1c Lab Routine Routine health maintenance Expected: 04/21/2024 (Approximate), Expires: 04/21/2025 BI Mammogram Screening Tomosynthesis Bilateral Imaging Routine Routine health maintenance Expected: 04/21/2024, Expires: 06/19/2025 Lipid Panel, Standard Lab Routine Routine health maintenance Expected: 04/21/2024 (Approximate), Expires: 04/21/2025 Hepatic Function Panel Lab Routine Routine health maintenance Expected: 04/21/2024 (Approximate), Expires: 04/21/2025 Basic Metabolic Panel Lab Routine Essential hypertension Expected: 04/28/2024 (Approximate), Expires: 04/21/2025 BD DEXA Axial Imaging Routine At risk for decreased bone density Expected: 04/21/2024, Expires: 04/21/2025 Scheduled Referrals Name Type Priority Associated Diagnoses Order Schedule Referral to Pharmacy CDTM Outpatient Referral Routine Essential hypertension Ordered: 04/21/2024 Referral to Gastroenterology Outpatient Referral Routine Routine health maintenance Expected: 04/21/2024 (Approximate), Expires: 04/21/2025 documented as of this encounter Visit Diagnoses Diagnosis Routine health maintenance- Primary Unspecified examination Anxiety Anxiety state, unspecified Essential hypertension Unspecified essential hypertension Encounter for immunization At risk for decreased bone density Other specified conditions influencing health status Hyperlipidemia, unspecified hyperlipidemia type documented in this encounter Additional Health Concerns Assessment Noted Time PHQ-9 Depression Total Score: 1 04/21/19 25 1:50 PM EST documented as of this encounter Care Teams Aircraft Cleaner Relationship Specialty Start Date End Date Zuleima Ward MD [address] [place] [address] PCP - General Family Medicine 04/25/20 documented as of this encounter
--- OUTSIDE RECORDS SUMMARY | 2024-04-26 12:25 | XMS_ITS | Clinical Summary ---
Author Organization [facility] Address [address] [place] [address] Phone Care Team Providers Care Assembly Operator Name Role Phone Zuleima Ward MD Primary Care Provider [phone] Allergies Active Allergy Reactions Criticality Noted Date Comments Fish-Derived Products Other (see comments) 05/14 Lisinopril Other (see comments) 06/05/2020 Medications acetaminophen (TYLENOL) 500 MG tablet Take 1 tablet by mouth 4 (four) times a day Active atorvastatin (LIPITOR) 40 MG tablet Take 1 tablet by mouth 1 (one) time each day 04/22/2016 Active Azelaic Acid (Finacea) 15 % foam Active cetirizine (ZyrTEC) 10 MG tablet Take 1 tablet by mouth 1 (one) time each day Active Cholecalciferol 50 MCG (2000 UT) capsule Take 1 capsule by mouth 1 (one) time each day 03/24/2017 Active cyanocobalamin 500 MCG tablet Take 1 tablet by mouth 1 (one) time each day Active Docusate Sodium (DSS) 100 MG capsule Take 1 capsule by mouth 2 (two) times a day 02/24/2017 Active famotidine (PEPCID) 20 MG tablet Take 1 tablet by mouth 1 (one) time each day Active FLUoxetine (PROzac) 20 MG tablet Take 1 tablet by mouth 1 (one) time each day Active fluticasone (FLONASE) 50 MCG/ACT nasal spray Active hydroCHLOROthia zide (HYDRODIURIL) 25 MG tablet Take 1 tablet by mouth 1 (one) time each day 04/22/2016 Active ibuprofen (ADVIL,MOTRIN) 600 MG tablet Take 1 tablet by mouth 3 (three) times a day Active levothyroxine (SYNTHROID, LEVOTHROID) 50 MCG tablet Take 1 tablet by mouth 1 (one) time each day 02/24/2017 Active losartan (COZAAR) 50 MG tablet Take 2 tablets by mouth 1 (one) time each day Active NIFEdipine XL (PROCARDIA XL) 90 MG 24 hr tablet Take 1 tablet by mouth 2 (two) times a day Active OXcarbazepine (TRILEPTAL) 300 MG tablet Take 1 tablet by mouth every morning 01/19/2017 Active senna (SENOKOT) 8.6 MG tablet Take 1 tablet by mouth 1 (one) time each day Active traZODone (DESYREL) 100 MG tablet Take 1.5 tablets by mouth 1 (one) time each day Active raNITIdine HCl (ZANTAC 150 MAXIMUM STRENGTH PO) Take 1 tablet by mouth 2 (two) times a day Active metoprolol succinate XL (TOPROL-XL) 100 MG 24 hr tablet Take 150 mg by mouth 1 (one) time each day Do not crush or chew. Active Active Problems Problem Noted Date Diagnosed Date Hypertension 01/03/2021 Chronic kidney disease stage 3 06/05/2020 Essential hypertension 06/05/2020 H/O: hypothyroidism 06/05/2020 Hyperlipidemia 06/05/2020 Proteinuria 06/05/2020 Prediabetes 06/05/2020 Rosacea 06/05/2020 Family History Medical History Relation Comments Diabetes Child Heart disease Father Hypertension Mother Kidney disease Mother Stroke Mother Diabetes Sibling Relation Status Comments Child Father Mother Sibling Social History Tobacco Use Types Packs/Day Years Used Date Smoking Tobacco: Never Smokeless Tobacco: Never Alcohol Use Standard Drinks/Week Comments No 0 (1 standard drink = 0.6 oz pur e alcohol) Comments Unknown Sex and Gender Information Value Date Recorded Sex Assigned at Not on file Legal Sex Female 4:56 PM EST Gender Identity Not on file Sexual Orientation Not on file Last Filed Vital Signs Vital Sign Reading Time Taken Comments Blood Pressure 174/100 07/09/2021 1:50 PM EDT Pulse 64 07/09/2021 1:50 PM EDT Temperature - - Respiratory Rate - - Oxygen Saturation 98% 01/03/2021 2:33 PM EDT Inhaled Oxygen Concentration - - Weight 75.4 kg (166 lb 3.2 oz) 07/09/2021 1:50 P M EDT Height 154.9 cm (5' 1 ) 08/18/2019 12:00 PM EDT Body Mass Index 31.4 08/18/2019 12:00 PM EDT Plan of Treatment Health Maintenance Due Date Last Done Comments Breast Cancer Screening 1955 Pneumococcal Vaccine: 65+ Ye ars (1 of 2 - PCV) 11/23/1961 Colorectal Cancer Screening: Annual FOBT 11/23/2004 Colorectal Cancer Screening: Colonoscopy 11/23/2004 Colorectal Cancer Screening: Sigmoidoscopy 11/23/2004 Influenza Vaccine (#1) 2023 Hepatitis B Vaccine Aged Out No longe r eligible based on patient's age to complete this topic Insurance [place] [id number] Care Teams Assembly Operator Relationship Specialty Start Date End Date Zuleima Ward MD PCP - General Support Representative 01/03/21
--- OUTSIDE RECORDS SUMMARY | 2024-04-26 12:25 | XMS_ITS | Encounter Summary ---
Author Organization [employer] Address [address] [facility] [address] [place] [address] Care Team Providers Care Insole And Outsole Preparer Name Role Phone Zuleima Ward MD Primary Care Provider [phone] Encounter Details Date Type Department Care Team (Latest Contact Info) Description 04/21/2024 Travel Social History Tobacco Use Types Packs/Day Years [...] documented as of this encounter Care Teams Insole And Outsole Preparer Relationship Specialty Start Date End Date Zuleima Ward MD [address] [place] [address] PCP - General Family Medicine 04/25/20 documented as of this encounter
--- OUTSIDE RECORDS SUMMARY | 2024-04-26 12:25 | XMS_ITS | Encounter Summary ---
Author Organization [employer] Address [address] [place] [address] [address] [place] [address] Care Team Providers Care Tractor Crane Operator Name Role Phone Zuleima Ward MD Primary Care Provider [phone] Reason for Visit * Reason Onset Date Comments Chart Prep 04/18/2024 Encounter Details Date Type Department Care Team (Late st Contact Info) Description 04/18/2024 Telephone [facility] [address] [place] [address] Ani Ramires CNP [address] [place] [address] Chart Prep Social History Tobacco Use Types Packs/Day Years [...] encounter Miscellaneous Notes * Telephone Encounter - Lee Singletary [place] - 04/18/2024 9:36 AM EST Chart Prep Labs: not applicable Images: not applicable Vaccines due: yes Tdap Flu Covid Referrals: pending appt Screenings: mammogram Hep C Depression Overdue care gaps: PHQ-9, Oral Health SDOH documented in this encounter Plan of Treatment Not on file documented as of this encounter Visit Diagnoses Not on filedocumented in this encounter Additional Health Concerns Assessment Noted Time PHQ-9 Depression Total Score: 3 05/24/19 24 11:36 AM EDT documented as of this encounter Care Teams Tractor Crane Operator Relationship Specialty Start Date End Date Zuleima Ward MD [address] [place] [id number] PCP - General Family Medicine 04/25/20 documented as of this encounter
--- OUTSIDE RECORDS SUMMARY | 2024-04-26 12:25 | XMS_ITS | Encounter Summary ---
Author Organization [employer] Address [address] [facility] [address] [place] [address] Care Team Providers Care Certified Driver Examiner Name Role Phone Zuleima Ward MD Primary Care Provider [phone] Reason for Visit * Reason Comments Med Refill Encounter Details Date Type Department Care Team ([facility] st Contact Info) Description 04/04/2024 Refill [facility] [address] [place] [address] Zuleima Ward MD [address] [place] [address] Social History Tobacco Use Types Packs/Day Years [...] documented as of this encounter Care Teams Certified Driver Examiner Relationship Specialty Start Date End Date Zuleima Ward MD [address] [place] [id number] PCP - General Family Medicine 04/25/20 documented as of this encounter
--- OUTSIDE RECORDS SUMMARY | 2024-04-26 12:26 | XMS_ITS | Clinical Summary ---
Author Organization [employer] Address [address] [facility] [address] [place] [address] Care Team Providers Care Lock And Dam Repairer Name Role Phone Zuleima Ward MD Primary Care Provider Allergies Active Allergy Reactions Criticality Noted Date Comments Fish Allergy 09/18/2013 Other reaction(s): throat closes up, stuffy nose Lisinopril Other 09/24/2011 Other reaction(s): angioedema ? Medications cyanocobalamin (Vitamin B-12) 500 MCG tabletIndicatio ns:Vitamin B12 deficiency Take 1 tablet (500 mcg) by mouth in the morning. 90 tablet 3 04/10/19 23 Active sennosides (Senokot) 8.6 MG tabletIndicatio ns:Constipation , unspecified constipation type Take 1-2 tablets (8.6-17.2 mg) by mouth if needed each day for constipation. 180 tablet 04/10/19 23 Active losartan (Cozaar) 100 MG tablet Take 1 tablet (100 mg) by mouth in the morning. 90 tablet 3 10/13/19 23 Active cetirizine (ZyrTEC) 10 MG tablet Take 1 tablet (10 mg) by mouth Once per day. 30 tablet 11 08/24/19 24 025 Active olopatadine (Pataday) 0.2 % ophthalmic solution Administer 1 drop into affected eye(s) Once per day. 2.5 mL 2 08/24/19 24 Active cyclobenzaprine (Flexeril) 5 MG tabletIndicatio ns:Fibromyalgia TAKE 1 TABLET BY MOUTH AT BEDTIME 30 tablet 11/01/19 24 Active atorvastatin (Lipitor) 40 MG tablet TAKE 1 TABLET BY MOUTH AT BEDTIME 90 tablet 3 11/30/19 24 Active hydrALAZINE (Apresoline) 25 MG tablet TAKE 1 TABLET BY MOUTH THREE TIMES DAILY 270 tablet 3 11/30/19 24 Active famotidine (Pepcid) 20 MG tablet TAKE 1 TABLET BY MOUTH ONCE DAILY 90 tablet 3 02/29/20 24 Active D3 Super Strength 50 MCG (2000 UT) capsule TAKE 1 CAPSULE BY MOUTH EVERY DAY 90 capsule 3 02/29/20 24 Active Acetaminophen Extra Strength 500 MG tablet TAKE 2 TABLETS BY MOUTH EVERY 8 HOURS NEEDED FOR MILD PAIN 90 tablet 1 04/04/19 25 Active fluticasone (Flonase) 50 MCG/ACT nasal spray INSTILL 2 SPRAYS IN EACH NOSTRIL ONCE DAILY 16 g 2 04/19/19 25 Active OXcarbazepine (Trileptal) 300 MG tabletIndicatio ns:Anxiety Take 0.5 tablets (150 mg) by mouth 2 times daily. 30 tablet 04/21/19 25 026 Active NIFEdipine CC (Adalat CC) 60 MG 24 hr tabletIndicatio ns:Essential hypertension Take 2 tablets (120 mg) by mouth before breakfast. Do not crush, chew, or split. 60 tablet 04/21/19 25 026 Active spironolactone (Aldactone) 25 MG tabletIndicatio ns:Essential hypertension Take 3 tablets (75 mg) by mouth Once per day. 90 tablet 04/21/19 25 026 Active hydroCHLOROthia zide (HYDRODiuril) 25 MG tabletIndicatio ns:Essential hypertension Take 1 tablet (25 mg) by mouth Once per day. 90 tablet 04/21/19 25 Active FLUoxetine (PROzac) 10 MG capsuleIndicati ons:Anxiety Take 1 capsule (10 mg) by mouth Once per day. 30 capsule 04/21/19 25 Active fluticasone (Flonase) 50 MCG/ACT nasal spray Administer 2 sprays into each nostril if needed each day. 10/02/19 21 025 Discontinued(T herapy completed) traZODone (Desyrel) 100 MG tablet Take 0.5-1 tablets by mouth if needed at bedtime for sleep. 025 Discontinued(M ed list cleanup (will not trigger notification to Pharmacy)) rosuvastatin (Crestor) 40 MG tablet TAKE 1 TABLET BY MOUTH ONCE DAILY 90 tablet 1 07/28/19 23 025 Discontinued(M ed list cleanup (will not trigger notification to Pharmacy)) FLUoxetine (PROzac) 10 MG capsule TAKE 1 CAPSULE BY MOUTH DAILY AT BEDTIME 10/02/19 23 025 Discontinued(R eorder (will not trigger notification to Pharmacy)) traZODone (Desyrel) 150 MG tablet TAKE 1/2 TO 1 TABLET BY MOUTH DAILY AT BEDTIME NEEDED 10/02/19 23 025 Discontinued(T herapy completed) spironolactone (Aldactone) 25 MG tablet TAKE 2 TABLETS (50mg) BY MOUTH ONCE DAILY 05/14/19 24 025 Discontinued(I neffective) OXcarbazepine (Trileptal) 300 MG tablet TAKE 1 TABLET BY MOUTH IN THE MORNING TAKE 2 TABLETS BY MOUTH AT BEDTIME 09/08/19 24 025 Discontinued(R eorder (will not trigger notification to Pharmacy)) fluticasone (Flonase) 50 MCG/ACT nasal spray INSTILL 2 SPRAYS IN EACH NOSTRIL ONCE DAILY 16 g 2 11/29/19 24 025 Discontinued NIFEdipine XL (Procardia XL) 90 MG 24 hr tablet Take 1 tablet (90 mg) by mouth Once per day. Do not crush, chew, or split. 90 tablet 3 12/15/19 24 025 Discontinued(I neffective) Acetaminophen Extra Strength 500 MG tablet TAKE 2 TABLETS BY MOUTH EVERY 8 HOURS NEEDED FOR MILD PAIN 90 tablet 1 02/08/20 24 025 Discontinued hydroCHLOROthia zide (HYDRODiuril) 25 MG tablet TAKE 1 TABLET BY MOUTH EVERY DAY 90 tablet 3 02/29/20 24 025 Discontinued(R eorder (will not trigger notification to Pharmacy)) Active Problems Problem Noted Date Diagnosed Date Routine health maintenance 04/21/2024 Assessment & Plan (04/21/2024 3:14 PM EST): Pt due for routine bloodwork, pt also on spironolactone will order BMP as well to trend potassium, pt plans to complete bloodwork in 1 week as we have just increased her spironolactone from 25 mg to 75 mg per her sales agent trading stamps's recommendations. Mammo due- orders placed DEXA due- orders placed Colonoscopy due- orders placed Pt needs new dental home, will place referral, pt wants outgoing referral Pt agrees to covid/flu vaccination today Anxiety 04/21/2024 Assessment & Plan (04/21/2024 3:19 PM EST): Refilled patient MH meds per pt request F/u in 3 months for chronic conditions At risk for decreased bone density 04/21/2024 Assessment & Plan (04/21/2024 3:21 PM EST): Recommended BMD screening per guidelines- orders placed Polyarthralgia 05/24/2023 Sinus bradycardia 03/03/2021 Stage 3 chronic kidney disease 06/05/2020 Prediabetes 06/05/2020 Proteinuria 06/05/2020 Acquired hypothyroidism 02/24/2017 Assessment & Plan (05/24/2023 2:26 PM EDT): TSH 3.88 today off Synthroid for 6 months Synthroid no longer needed Assessment & Plan (11/09/2022 9:37 AM EDT): On Synthroid 50mcg daily Check TSH today Cobalamin deficiency 06/21/2015 Depressive disorder 06/21/2015 Essential hypertension 06/21/2015 Assessment & Plan (04/21/2024 3:19 PM EST): Updated pt med list to reflect sales agent trading stamps recommendations. Pt med regimen should be the following: Nifedipine 120 mg, Losartan 100mg, Spironolactone 75 mg, hydrochlorothiazide 25 mg, Hydralazine 75 mg. Advised pt of these changes Will refer to [facility] for HTN management Advised pt to continue checking BP at home Discussed ED precautions Pt will get bloodwork in 1 week, will trend potassium levels F/u in 3 months for chronic conditions Assessment & Plan (05/24/2023 2:27 PM EDT): At goal <140/90 without hypotension, continue current medication regimen Nephro re-consulted for consideration of secondary hypertension or renal biopsy due to persistently elevated BP - Aerobic exercise to reduce BP. Initial goal of 30 min walk 3-5x/week. Increase as tolerated. - low-sodium diet (goal: <2g/day) and heart healthy diet such as DASH to reduce BP and prevent ASCVD. - Home BP monitoring 1-2 x day with goal of <140/90. - Seek immediate medical attention for chest pain, palpitations, SOB, syncope, or sudden changes in mental status. - Do not change or discontinue current prescriptions without first consulting health care provider Assessment & Plan (11/09/2022 9:36 AM EDT): Now that she is taking Nifedipine 60, Losartan 100mg, hydrochlorothiazide 25mg, Hydralazine 25mg BID her BP is 110s/60-70s HOLD Hydralazine, nurse BP check in 2-4 weeks WIC advised for worsening dizziness symptoms Nephro re-consulted for consideration of secondary hypertension or renal biopsy due to persistently elevated BP - Aerobic exercise to reduce BP. Initial goal of 30 min walk 3-5x/week. Increase as tolerated. - low-sodium diet (goal: <2g/day) and heart healthy diet such as DASH to reduce BP and prevent ASCVD. - Home BP monitoring 1-2 x day with goal of <140/90. - Seek immediate medical attention for chest pain, palpitations, SOB, syncope, or sudden changes in mental status. - Do not change or discontinue current prescriptions without first consulting health care provider Assessment & Plan (10/14/2022 7:28 AM EDT): Uncontrolled despite four agents, Nifedipine 60, Losartan 100mg, hydrochlorothiazide 25mg, Metoprolol 25mg Add Hydralazine 10mg TID today Will re-consult nephro for consideration of secondary hypertension or renal biopsy due to persistently elevated BP - Aerobic exercise to reduce BP. Initial goal of 30 min walk 3-5x/week. Increase as tolerated. - low-sodium diet (goal: <2g/day) and heart healthy diet such as DASH to reduce BP and prevent ASCVD. - Home BP monitoring 1-2 x day with goal of <140/90. - Seek immediate medical attention for chest pain, palpitations, SOB, syncope, or sudden changes in mental status. - Do not change or discontinue current prescriptions without first consulting health care provider Hyperlipidemia 06/21/2015 Assessment & Plan (04/21/2024 3:21 PM EST): Will update FLP-orders placed Rosacea 06/21/2015 Vitamin D deficiency 06/21/2015 Encounters Date Type Department Care Team Description 04/26/2024 Orders Only [facility] MEDICINE [address] [place] [phone] Ani Ramires CNP Menopausal and postmenopausal disorder (Primary Dx) 04/25/2024 Telephone [facility] [address] [place] [address] Ani Ramires CNP 04/21/2024 2:15 PM EST Office Visit [facility]INE [address] [place] [address] [phone] Ani Ramires CNP Routine health maintenance (Primary Dx); Anxiety; Essential hypertension; Encounter for immunization; At risk for decreased bone density; Hyperlipidemia, unspecified hyperlipidemia type 04/21/2024 Travel 04/19/2024 Refill [facility] [address] [place] [phone] Zuleima Ward MD 04/18/2024 Telephone [facility] MEDICINE [address] [place] [address] [phone] Ani Ramires CNP Chart Prep 04/14/2024 Patient Outreach [facility] PEDS [address] [place], [place] [phone] Zuleima Ward MD Pre-visit Planning ([facility] unable to reach [facility]) 04/04/2024 Refill [facility] [address] [place] [address] [phone] Zuleima Ward MD 03/29/2024 Telephone [facility] MED[facility]INE [address] [place] [address] [phone] Zuleima Ward MD call back needed 02/29/2024 Refill [facility] [address] [place] [phone] Zuleima Ward MD 02/07/2024 Refill [facility] [address] [place] [address] [phone] Zuleima Ward MD 02/02/2024 Telephone [facility] MED[facility] [address] [place], [place] [phone] Zuleima Ward MD Change PCP from Last 3 Months Immunizations Name Administration Dates Next Due Influenza High-dose Quadriva lent Preservative Free 12/15/2021 Influenza injectable quadriv alent IIV4 with preservative 12/27/2017,02/24/2017,06/21/2015 Influenza injectable quadriv alent preservative free 12/23/2018,03/19/2016 Influenza, High Dose Seasona l, Preservative Free 04/21/2024 Influenza, IIV3, injectable 12/18/2013, 1 Influenza, Split (incl. giuseppe fied surface antigen) 12/16/2012,12/10/2011 Moderna Covid-19 Vaccine 12+ 04/23/2021,09/24/19 21,08/29/2020 Pfizer Covid-19 Vaccine 12+ 04/21/2024, 2 Pneumococcal Conjugate PCV 20 12/15/2021 TD (adult), 2 Lf tetanus tox oid, preservative free, adsorbed 05/27/2010 Tdap 05/24/2013 Zoster, Recombinant 02/16/2022,12/15/2021 Zoster, live 03/19/2016 Family History Medical History Relation Name Comments Diabetes type II Daughter Hypertension Mother Relation Name Status Comments Daughter Mother Social History Tobacco Use Types Packs/Day Years Used Date Smoking Tobacco: Never Passive Smoke Exposure: Never Smokeless Tobacco: Never Tobacco Cessation:Counseling Given: Not Answered Alcohol Use Standard Drinks/Week Comments Never 0 [...] Orientation Straight 01/12/2022 10 :14 AM EDT Last Filed Vital Signs Vital Sign Reading Time Taken Comments Blood Pressure 134/82 04/21/2024 2:33 PM EST BP recheck Pulse 65 04/21/2024 2:33 PM EST Temperature 36.9 ??C (98.5 ??F) 12/08/2023 1 1:40 AM EDT Respiratory Rate 20 04/21/2024 1:48 PM EST Oxygen Saturation 96% 04/21/2024 2:3 3 PM EST Inhaled Oxygen Concentration - - Weight 74.8 kg (164 lb 12.8 oz) 025 1:48 PM EST Height 154.9 cm (5' 1 ) 04/21/2024 1:48 PM EST Body Mass Index 31.14 04/21/2024 1:48 PM EST Plan of Treatment Health Maintenance Due Date Last Done Comments CT Colonography 1955 FIT DNA/Cologuard 1955 FIT 1955 FOBT 1955 Sigmoidoscopy 1955 Hepatitis C Screening 11/23/1973 Diabetes: Hemoglobin A1C 01/21/2023 01/21/2022, 05/1 08/2021 DTaP/Tdap/Td Vaccines (2 - Td or Tdap) 05/25/2023 05/24/2013, 05/27/2010 Mammogram 08/22/2023 08/21/2022, 11/2022, 10/23/2020, Additional history exists Alcohol/Substance Use Screening 04/21/2025 04/21/2024 Depression Screening 04/21/2025 04/21/2024, 04/21/19 SDOH Screening 04/21/2025 04/21/2024 Tobacco Screening 04/21/2025 04/21/2024 Lipid Panel 01/21/2027 01/21/2022, 07/28/2021 Colonoscopy 09/04/2027 09/03/2017 Colorectal Cancer Screening 09/04/2027 RSV Patients and Patients Aged 60 years or older (1 - 1-dose 75+ series) 11/23/2030 Pneumococcal Vaccine: 50+ Years Completed 12/15/2021 Zoster Vaccines Completed 02/16/2022, 05/2021, 03/19/2016 COVID-19 Vaccine Completed 04/21/2024, , 04/23/2021, Additional history exists Influenza Vaccine Completed 04/21/2024, , 12/23/2018, Additional history exists HIB Vaccines Aged Out No longer eligi ble based on patient's age to complete this topic HPV Vaccines Aged Out No longer eligi ble based on patient's age to complete this topic Hepatitis A Vaccines Aged Out No long er eligible based on patient's age to complete this topic Hepatitis B Vaccines Aged Out No long er eligible based on patient's age to complete this topic IPV Vaccines Aged Out No longer eligi ble based on patient's age to complete this topic Meningococcal Vaccine Aged Out No katelin krishna eligible based on patient's age to complete this topic RSV under 20 months Aged Out No longe r eligible based on patient's age to complete this topic Rotavirus Vaccines Aged Out No longer eligible based on patient's age to complete this topic Procedures Procedure Name Priority Date/Time Associated Diagnosis Comments BI MAMMOGRAM SCREENING TOMOSYNTHESIS BILATERAL Routine 08/21/2022 12:55 PM EDT HEMOGLOBIN A1C Routine 01/21/2022 9:12 AM EST LIPID PANEL, STANDARD Routine 01/21/2022 9:12 AM EST HM COLONOSCOPY Routine 09/03/2017 from Last 3 Months or Most Recently Relevant to Health Maintenance Results * BI Mammogram Screening Tomosynthesis Bilateral (08/21/2022 12:55 PM EDT) Anatomical Region Laterality Modality Breast Bilateral Mammography 08/21/2022 12:5 5 PM EDT Narrative 08/24/2022 8:37 AM EDT ? [facility] [place] ? [address] ?[place], [place] [address] ? Mammography Report ? Signed ? Patient: Lakhani,Danni ?MR#: [id number] ?? [id number] ? : 1955 ?Acct:[id number] ? Age/Sex: 66 / F ?ADM Date: 08/21/22 ? Loc: HO.MAMMO ? Attending Dr: Zuleima Ward MD ? Ordering Physician: Zuleima Ward ?Results: 2Benign F ?? indings ? Date of Service: 08/21/22 ?Follow Up: 1 Year From Orig ?? inal Mammogram ? Procedure(s): MM tomosynthesis screening BI ?? Accession Number(s): [id number] ? cc: Zuleima Ward ? EXAMINATION: ?? MM SCREENING DIGITAL BREAST TOMOSYNTHESIS, BILATERAL ? CLINICAL INFORMATION: ? Screening. Asymptomatic. Prior history excisional biopsy on left. ? The lifetime risk of breast cancer based on the Tyrer-Cuzick Model is ?? 7%. ? COMPARISON: ?? Mammography: 10/23/2020, 05/24/2019, 04/14/2017 ? TECHNIQUE: ?? Digital breast tomosynthesis is performed in both the craniocaudal and ?? mediolateral oblique views along with computer-aided detection (CAD). ?? Synthesized 2D images are generated from the tomosynthesis. ??Additional ?? left view is provided. ? FINDINGS: ?? There are scattered areas of fibroglandular density (ACR BI-RADS breast ?? composition Category b). ? There are no significant masses, abnormal calcifications, or other ?? abnormalities. ?? No developing density or architectural abnormality. ?? There are scattered benign round calcifications in each breast. The ?? axilla and skin contours are unremarkable. ? Biopsy clip marker again noted mid lower inner right breast, possibly ?? second clip marker mid 11:00 right breast. ? MM/MM tomosynthesis screening BI ?? IMPRESSION: ?? No mammographic evidence of malignancy. ? ASSESSMENT: ? BI-RADS 2: Benign ? RECOMMENDATION: ?? Routine annual mammography screening. ? This patient's information was entered into a reminder system with a ?? target due date for their next mammogram. ? Dictated By: ?Young Rubio MD ? Signed By: ?<Electronically signed by Young Rubio MD in OV> ?08/24/22 0834 ? DD/ 1255 ? TD/TT: ? Box Liner: GONSALES ? Procedure Note [place], Image - 09/10/2022 [facility] [address] [place] [address] Dr. [place], [place] [address] Mammography Report Signed Patient: Danni LakhaniMR#: [id number] : 6Acct:[id number] Age/Sex: 66 / FADM Date: 08/21/22 Loc: [facility] Attending Dr: Zuleima Ward MD Ordering Physician: Misael Wardults: 2Benign F lavinia Date of Service: 08/21/22Follow Up: 1 Year From Orig ina Mammogram Procedure(s): MM tomosynthesis screening BI Accession Number(s): [id number] cc: Zuleima Ward EXAMINATION: MM SCREENING DIGITAL BREAST TOMOSYNTHESIS, BILATERAL CLINICAL INFORMATION: Screening. Asymptomatic. Prior history excisional biopsy on left. The lifetime risk of breast cancer based on the Tyrer-Cuzick Model is 7%. COMPARISON: Mammography: 10/23/2020, 05/24/2019, 04/14/2017 TECHNIQUE: Digital breast tomosynthesis is performed in both the craniocaudal and mediolateral oblique views along with computer-aided detection (CAD). Synthesized 2D images are generated from the tomosynthesis. Additional left view is provided. FINDINGS: There are scattered areas of fibroglandular density (ACR BI-RADS breast composition Category b). There are no significant masses, abnormal calcifications, or other abnormalities. No developing density or architectural abnormality. There are scattered benign round calcifications in each breast. The axilla and skin contours are unremarkable. Biopsy clip marker again noted mid lower inner right breast, possibly second clip marker mid 11:00 right breast. MM/MM tomosynthesis screening BI IMPRESSION: No mammographic evidence of malignancy. ASSESSMENT: BI-RADS 2: Benign RECOMMENDATION: Routine annual mammography screening. This patient's information was entered into a reminder system with a target due date for their next mammogram. Dictated By: Young Rubio MD Signed By: <Electronically signed by Young Rubio MD in OV> 08/24/22 0834 DD/ 1255 TD/TT: Box Liner: GONSALES [facility] External Provider IMG BI PROCEDURES Final Result * HEMOGLOBIN A1c (01/21/2022 9:12 AM EST) Hemoglobin A1c 5.6 <5.7 % of total Hgb CONVERTED LEGACY LABS Comment: For the purpose of screening for the presence of diabetes: ?? <5.7% ? Consistent with the absence of diabetes 5.7-6.4% ?Consistent with increased risk for diabetes ? (prediabetes) > or =6.5% ??Consistent with diabetes ?? This assay result is consistent with a decreased risk of diabetes. ?? Currently, no consensus exists regarding use of hemoglobin A1c for diagnosis of diabetes in children. ?? According to [place] Diabetes Association (ADA) guidelines, hemoglobin A1c <7.0% represents optimal control in non- diabetic patients. Different metrics may apply to specific patient populations. ?? Standards of Medical Care in Diabetes(ADA). ?? 01/21/2022 9:12 AM EST us Zuleima Ward MD LAB BLOOD ORDERABLES Final Res ult CONVERTED LEGACY LABS * (ABNORMAL) LIPID PANEL, STANDARD (01/21/2022 9:12 AM EST) Chol/HDLC Ratio 4.3 <5.0 (calc) CONVERTED LEGACY LABS Cholesterol, Total 201(H) <200 mg/dL CONVERTED [facility]GACY LABS HDL Cholesterol 47(L) > OR = 50 mg/dL CONVERTED [facility]GAC[facility] LDL Cholesterol 127(H) mg/dL (calc) CONVERTED LEGACY LABS Comment: Reference range: <100 ?? Desirable range <100 mg/dL for primary prevention; ?? <70 mg/dL for patients with CHD or diabetic patients ?? with > or = 2 CHD risk factors. ?? LDL-C is now calculated using the Mary ?? calculation, which is a validated novel method providing ?? better accuracy than the Friedewald equation in the ?? estimation of LDL-C. ?? Reg ALCANTAR et al. [place]. 2013;310(19): 7756-4260 ?? (http://education.Ringadoc/faq/FXC893) Non-HDL Cholesterol 154(H) <130 mg/dL (calc) CONVERTED LEGACY LABS Comment: For patients with diabetes plus 1 major ASCVD risk ?? factor, treating to a non-HDL-C goal of <100 mg/dL ?? (LDL-C of <70 mg/dL) is considered a therapeutic ?? option. Triglycerides 153(H) <150 mg/dL CONVE RTED LEGACY LABS 01/21/2022 9:12 AM EST Zuleima Ward MD LAB BLOOD ORDERABLES Final Res ult CONVERTED LEGACY LABS * Hm Colonoscopy (09/03/2017) us Historical Provider HEALTH MAINTENANCE Final Result from Last 3 Months or Most Recently Relevant to Health Maintenance Insurance [facility] STANDARD [employer] O [place] Care Teams Lock And Dam Repairer Relationship Specialty Start Date End Date Zuleima Ward MD [address] [place] [phone] PCP - General Family Medicine 04/25/20
--- OUTSIDE RECORDS SUMMARY | 2024-04-26 12:26 | XMS_ITS | Encounter Summary ---
Author Organization [employer] Address [address] [place] [address] [address] [place] [address] Care Team Providers Care Football Scout Name Role Phone Zuleima Ward MD Primary Care Provider [phone] Reason for Visit * Reason Onset Date Comments Change PCP 06/07/2023 Encounter Details Date Type Department Care Team ([facility] st Contact Info) Description 06/07/2023 Telephone [facility] MEDICINE [address] [place] [address] Zuleima Ward MD [address] [place] [address] Change PCP Social History Tobacco Use Types [...] encounter Miscellaneous Notes * Telephone Encounter - Ju Bear RN - 06/14/2023 1:59 PM EDT RN called pt via [facility] [facility] interpretor #[id number], pt states she would like to change to a [place] speaking provider to help understand her more. mPt is complaining iof bone pain, informed to come to [facility] for evaluation. Pt states understanding. Please sandra change in PCP request Tc from pt requesting a PCP change due to not meeting medical needs. Please contact pt at [phone] (Citizen [place]) * Telephone Encounter - Cookie Pedraza - 06/07/2023 11:39 AM EDT Tc from pt requesting a PCP change due to not meeting medical needs. Please contact pt at [phone] (Citizen [place]) documented in this encounter Plan of Treatment Not on file documented as of this encounter Visit Diagnoses Not on filedocumented in this encounter Additional Health Concerns Assessment Noted Time PHQ-9 Depression Total Score: 3 05/24/19 24 11:36 AM EDT documented as of this encounter Care Teams Football Scout Relationship Specialty Start Date End Date Zuleima Ward MD [address] [place] [phone] PCP - General Family Medicine 04/25/20 documented as of this encounter
--- OUTSIDE RECORDS SUMMARY | 2024-04-26 12:26 | XMS_ITS | Encounter Summary ---
Author Organization [employer] Address [address] [facility] 7t [place] [address] Care Team Providers Care Precision Instrument And Tool Maker Name Role Phone Zuleima Ward MD Primary Care Provider [phone] Encounter Details Date Type Department Care Team (Late st Contact Info) Description 06/09/2023 Orders Only [facility] [address] [place] [address] Zuleima Ward MD [address] [place] [address] Fibromyalgia (Primary Dx) Social History Tobacco Use Types [...] as of this encounter Visit Diagnoses Diagnosis Fibromyalgia- Primary Unspecified myalgia and myositis documented in this encounter Additional Health Concerns Assessment Noted Time PHQ-9 Depression Total Score: 3 05/24/19 24 11:36 AM EDT documented as of this encounter Care Teams Precision Instrument And Tool Maker Relationship Specialty Start Date End Date Zuleima Ward MD [address] [place] [address] PCP - General Family Medicine 04/25/20 documented as of this encounter
--- OUTSIDE RECORDS SUMMARY | 2024-04-26 12:26 | XMS_ITS | Encounter Summary ---
Author Organization [employer] Address [address] [facility] 7t [place] [address] Care Team Providers Care Child Welfare Consultant Name Role Phone Zuleima Ward MD Primary Care Provider [phone] Reason for Visit * Reason Comments Med Refill Encounter Details Date Type Department Care Team ([facility] st Contact Info) Description 11/22/2023 Refill [facility] 230 [place] [address] Re Crespo MD [address] [place] [address] Social History Tobacco Use Types Packs/Day Years [...] documented as of this encounter Care Teams Child Welfare Consultant Relationship Specialty Start Date End Date Zuleima Ward MD [address] [place] [address] PCP - General Family Medicine 04/25/20 documented as of this encounter
[2024-04-26 14:15] LABS: Estimated Average Glucose 114 mg/dL; Hemoglobin A1C 122.0215 umol/L; Hemoglobin A1c % 5.6 % (<6.0); Total Hemoglobin (HGBA1C) 3218.5561 umol/L
[2024-04-26 14:31] LABS: Alanine Aminotransferase 20 U/L (0-31); Anion Gap 11 (12-20); Aspartate Amino Transferase 25 U/L (5-31); Bilirubin Direct 0.1 mg/dL (0.0-0.5); Bilirubin Total 0.3 mg/dL (0.0-1.0); Blood Urea Nitrogen 8 mg/dL (9-16); Calcium 8.9 mg/dL (8.4-10.2); Carbon Dioxide 26 mmol/L (22-29); Chloride 107 mmol/L (96-108); Cholesterol 186 mg/dL (<200); Estimated Glomerular Filt Rate > 60; Glucose Random 101 mg/dL (60-115); HDL Cholesterol 43 mg/dL (>40); LDL Cholesterol Calculated 119 mg/dL (<100); Potassium 4.1 mmol/L (3.3-5.1); Sodium 140 mmol/L (135-145); Total Protein 7.9 g/dL (6.5-8.0); Triglycerides 121 mg/dL (<150)
[2024-04-26 14:44] LABS: Alkaline Phosphatase 84 U/L (39-117)
== END 2024-04-26 10:38 | disposition home or self-care (01) ==
LOC: HO.HHCL 10:37
PROVIDERS: Internal Medicine Nephrology
DX: Z00.00 Encounter for general adult medical examination without abnormal findings (principal); I10 Essential (primary) hypertension; Z13.1 Encounter for screening for diabetes mellitus
CPT/HCPCS: 36415; 80048; 80061; 80076; 83036

== ENCOUNTER 2024-05-05 11:20 | Outpatient (REF) | payer OTHER, SELFPAY ==
--- NOTE | ~2024-05-05 | MM_ITS ---
EXAMINATION: DXA BONE DENSITY AXIAL HISTORY: Estrogen deficiency TECHNIQUE: [employer] Dual energy absorptiometry (DEXA) of the lumbar spine, total left hip, and femoral neck was performed. COMPARISON: There are no prior studies for comparison. FINDINGS: The bone mineral density of the lumbar spine is 0.867 with a T-score of -2.5, and a Z-score of -1.0. The bone mineral density of the left total hip is 0.835 with a T-score of -1.4, and a Z-score of -0.1. The bone mineral density of the left femoral neck is 0.796 with a T-score of -1.7, and a Z-score of -0.2. FRACTURE RISK: The FRAX index suggests a risk of major osteoporotic fracture of 9.4%, and of hip fracture 1.4%. MM/XR DEXA axial skeleton IMPRESSION: Based on bone mineral density, and according to World Health Organization (WHO) criteria, the diagnosis is consistent with osteoporosis. All bone density values are in grams per centimeter squared (g/cm2). Statistically, 68% of repeat scans fall within 1 SD (+/- 0.010 g/cm2 for AP spine L1-L4) and 1 SD (+/- 0.012 g/cm2 for femur total) FRAX is a trademark of the [employer]'s [place] for Metabolic Bone Disease, a World Health Organization (WHO) Collaborating Center. Electronically signed by: Rudolph Forrester MD 05/08/2024 08:52 AM EST
--- OUTSIDE RECORDS SUMMARY | 2024-05-05 12:26 | XMS_ITS | Encounter Summary ---
Author Organization [employer] Address [address] [facility] 7t [place] [address] Care Team Providers Care Radiographic Technologist Name Role Phone Zuleima Ward MD Primary Care Provider Encounter Details Date Type Department Care Team [...] documented as of this encounter Care Teams Radiographic Technologist Relationship Specialty Start Date End Date Zuleima Ward MD 230 [place] [address] PCP - General Family Medicine 04/25/20 documented as of this encounter
--- OUTSIDE RECORDS SUMMARY | 2024-05-05 12:26 | XMS_ITS | Encounter Summary ---
Author Organization [employer] [facility] Address [address] [place] [address] 7t [place] [address] Care Team Providers Care Instructor Bridge Name Role Phone Zuleima Ward MD Primary Care Provider [phone] Encounter Details Date Type Department Care Team (Late st Contact Info) Description 11/18/2022 Orders Only [facility] [address] [place] [address] Provider, MD Jesica Social History Tobacco Use [...] on filedocumented in this encounter Care Teams Instructor Bridge Relationship Specialty Start Date End Date Zuleima Ward MD 230 [place] [address] PCP - General Family Medicine 04/25/20 documented as of this encounter
--- OUTSIDE RECORDS SUMMARY | 2024-05-05 12:26 | XMS_ITS | Encounter Summary ---
Author Organization [employer] Address [address] [facility] 7t [place] [address] Care Team Providers Care Professor Of Management Name Role Phone Zuleima Ward MD Primary Care Provider [phone] Reason for Visit * Reason Comments Med Refill Encounter Details Date Type Department Care Team ([facility] st Contact Info) Description 04/19/2024 Refill [facility] [address] [place], [place] [phone] Zuleima Ward MD 230 [place] [address] Social History Tobacco Use Types Packs/Day Years [...] documented as of this encounter Care Teams Professor Of Management Relationship Specialty Start Date End Date Zuleima Ward MD [address] [place] [address] PCP - General Family Medicine 04/25/20 documented as of this encounter
--- OUTSIDE RECORDS SUMMARY | 2024-05-05 12:26 | XMS_ITS | Encounter Summary ---
Author Organization [employer] Address [address] [facility] 7t [place] [address] Care Team Providers Care Florist Name Role Phone Zuleima Ward MD Primary Care Provider [phone] Reason for Visit * Reason Comments Pre-visit Planning SDOH unable to reach LVM Encounter Details Date Type Department Care Team (Late st Contact Info) Description 04/14/2024 Patient Outreach [facility] [address] [place], [place] [phone] Zuleima Ward MD 230 [place] [address] Pre-visit Planning (SDOH unable to reach LVM) [...] documented as of this encounter Care Teams Florist Relationship Specialty Start Date End Date Zuleima Ward MD [address] [place] [address] PCP - General Family Medicine 04/25/20 documented as of this encounter
--- OUTSIDE RECORDS SUMMARY | 2024-05-05 12:26 | XMS_ITS | Encounter Summary ---
Author Organization [employer] Address [address] [place] [address] 7t [place] [address] Care Team Providers Care Internal Security Manager Name Role Phone Zuleima Ward MD Primary Care Provider [phone] Reason for Visit * Reason Onset Date Comments Change PCP 06/07/2023 Encounter Details Date Type Department Care Team ([facility] st Contact Info) Description 06/07/2023 Telephone [facility] [address] [place] [address] Zuleima Ward MD [address] [place] [address] Change PCP Social History Tobacco Use Types [...] your housing situation today? I have joe elma 05/24/[address] you li [...] 1:59 PM EDT RN called pt via [employer] interpretor #[id number], pt states she would like to change to a Greenlandic speaking provider to help understand her more. mPt is complaining iof bone pain, informed to come to [facility] for evaluation. Pt states understanding. Please sandra change in PCP request Tc from pt requesting a PCP change due to not meeting medical needs. Please contact pt at [phone] (Greenlandic) * Telephone Encounter - Cookie Pedraza - 06/07/2023 11:39 AM EDT Tc from pt requesting a PCP change due to not meeting medical needs. Please contact pt at [phone] (Greenlandic) documented in this encounter Plan of Treatment Not on file documented as of this encounter Visit Diagnoses Not on filedocumented in this encounter Additional Health Concerns Assessment Noted Time PHQ-9 Depression Total Score: 3 05/24/19 24 11:36 AM EDT documented as of this encounter Care Teams Internal Security Manager Relationship Specialty Start Date End Date Zuleima Ward MD [address] [place] [address] PCP - General Family Medicine 04/25/20 documented as of this encounter
--- OUTSIDE RECORDS SUMMARY | 2024-05-05 12:26 | XMS_ITS | Clinical Summary ---
Author Organization [facility] Address [address] [address] [place] [phone] Phone Care Team Providers Care Economic Forecaster Name Role Phone Zuleima Ward MD Primary [...] [place] [id number] Care Teams Economic Forecaster Relationship Specialty Start Date End Date Zuleima Ward MD PCP - General Driver Courier 01/03/21
--- OUTSIDE RECORDS SUMMARY | 2024-05-05 12:26 | XMS_ITS | Encounter Summary ---
Author Organization [employer] Address [address] [place] [address] [place] [address] Care Team Providers Care Labor Arbitrator Hearing Office Name Role Phone Zuleima Ward MD Primary Care Provider [phone] Reason for Referral * Consultation (Routine) - Authorized Specialty Diagnoses / Procedures Referred By Lynne gardner Referred To Contact Gastroenterology Diagnoses Routine health maintenance Ani Ramires CNP [address] [place] [address] Phone: tel: fax: [address] Phone: tel: fax: Referral ID Status Reason Start Date Expiration Date Visits Requested Visits Authorized [id number] Authorized Specialty Services Required 04/21/2024 04/21/2025 1 1 * Imaging (Routine) - Canceled Specialty Diagnoses / Procedures Referred By Lynne gardner Referred To Contact Radiology Diagnoses At risk for decreased bone density Procedures BD DEXA Axial Ani Ramires CNP [address] [place] [address] Phone: tel: fax: [address] Phone: tel: fax: Referral ID Status Reason Start Date Expiration Date V isits Requested Visits Authorized [id number] Canceled 04/21/2024 04/21/2025 1 1 * Consultation (Routine) - Authorized Specialty Diagnoses / Procedures Referred By Lynne gardner Referred To Contact Pharmacy Diagnoses Essential hypertension Ani Ramires CNP [address] [place] [address] Phone: tel: fax: Referral ID Status Reason Start Date Expiration Date Visits Requested Visits Authorized [id number] Authorized Consult and Treat 04/21/2024 04/21/2025 6 6 * Imaging (Routine) - Authorized Specialty Diagnoses / Procedures Referred By Lynne gardner Referred To Contact Radiology Diagnoses Routine health maintenance Procedures BI Mammogram Screening Tomosynthesis Bilateral Ani Ramires CNP [address] [place] [address] Phone: tel: fax: [address] Phone: tel: fax: Referral ID Status Reason Start Date Expiration Date V isits Requested Visits Authorized [id number] Authorized 04/21/2024 04/21/2025 1 1 Reason for Visit * Reason Comments Transfer Patient Encounter Details Date Type Department Care Team (Latest Contact Info) Description 04/21/2024 2:15 PM EST Office Visit [facility] [address] [place] [address] [phone] Ani Ramires CNP [address] [place] [address] Routine health maintenance (Primary Dx); Anxiety; Essential [...] Interim history: Pt has a CHW with [employer]. Pt has been having elevated BP. Followed by [facility] for her hypertension and mild CKD. Has f/u in may. Per high school mathematics teacher note: Meds include losartan 100 mg, nifedipine [...] Plan Updated pt med list to reflect high school mathematics teacher recommendations. Pt med regimen should be the [...] 25 mg to 75 mg per her high school mathematics teacher's recommendations. Mammo due- orders placed DEXA due- [...] 65 yrs + (Completed) COVID-19 VACCINE (Pfizer) [id number] 12 yrs + (Completed) [facility] GREEN MEAT PACKER Attestation GREEN MEAT PACKER Resident Attestation: Patient was seen and evaluated by Ani Ramires CNP, in collaboration with Mt Cullen MD who has reviewed my assessment and plan. I, Mt Cullen MD, have reviewed the resident's note and agree with the assessment & plan of care as documented above. Visit Conducted in: Iraqi Translation by: Provided by [facility] staff member Jackie Haney MA , documented [...] hypertension Updated pt med list to reflect high school mathematics teacher recommendations. Pt med regimen should be the [...] 25 mg to 75 mg per her high school mathematics teacher's recommendations. Mammo due- orders placed DEXA due- orders placed Colonoscopy due- orders placed Pt needs new dental home, will place referral, pt wants outgoing referral Pt agrees to covid/flu vaccination today documented in this encounter Plan of Treatment Scheduled Orders Name Type Priority Associated Diagnoses Orde r Schedule BI Mammogram Screening Tomosynthesis Bilateral Imaging Routine Routine health maintenance Expected: 04/21/2024, Expires: 06/19/2025 BD DEXA Axial Imaging Routine At risk for decreased bone density Expected: 04/21/2024, Expires: 04/21/2025 Scheduled Referrals Name Type Priority Associated Diagnoses Order Schedule Referral to Pharmacy CDTM Outpatient Referral Routine Essential hypertension Ordered: 04/21/2024 Referral to Gastroenterology Outpatient Referral Routine Routine health maintenance Expected: 04/21/2024 (Approximate), Expires: 04/21/2025 documented as of this encounter Procedures Procedure Name Priority Date/Time Associated Diagnosis Comments HEMOGLOBIN A1C Routine 04/26/2024 10:40 AM EST Routine health maintenance HEPATIC FUNCTION PANEL Routine 04/26/2024 10:40 AM EST Routine health maintenance LIPID PANEL, STANDARD Routine 04/26/2024 10:40 AM EST Routine health maintenance BASIC METABOLIC PANEL Routine 04/26/2024 10:40 AM EST Essential hypertension documented in this encounter Results * (ABNORMAL) Basic Metabolic Panel (04/26/2024 10:40 AM EST) Sodium 140 135 - 145 mmol/L [facility] Potassium 4.1 3.3 - 5.1 mmol/L [facility] Chloride 107 96 - 108 mmol/L [facility] Carbon Dioxide 26 22 - 29 mmol/L [facility] Anion Gap 11(L) 12 - 20 [facility] Urea Nitrogen (BUN) 8(L) 9 - 16 mg/dL [facility] Creatinine, Serum 0.84 0.5 - 1.4 mg/dL [facility] Estimated Glomerular Filt Rate >60 [facility] Comment:Chronic Kidney Disea se: Estimated GFR < 60 mL/min/[id number] Kidney Disease: Estimated GFR < 15 mL/min/1.73m2 Glucose 101 60 - 115 mg/dL [facility] Calcium 8.9 8.4 - 10.2 mg/dL [facility] Blood Venous blood specimen / Unknown 04/26/2024 10:40 AM EST 04/26/2024 1:42 PM EST [facility] LAB BLOOD ORDERABLES Leann l Result [facility] [address] [place] [address] [phone] * Hepatic Function Panel (04/26/2024 10:40 AM EST) Bilirubin, Total 0.3 0.0 - 1.0 mg/dL [facility] Bilirubin, Direct 0.1 0.0 - 0.5 mg/dL [facility] Aspartate Amino Transferase 25 5 - 31 U/L [facility] Alanine Aminotransferase 20 0 - 31 U/L [facility] Total Protein 7.9 6.5 - 8.0 g/dL [facility] Albumin Level 4.0 3.5 - 5.0 g/dL [facility] Alkaline Phosphatase 84 39 - 117 U/L [facility] Blood Venous blood specimen / Unknown 04/26/2024 10:40 AM EST 04/26/2024 1:42 PM EST [facility] LAB BLOOD ORDERABLES Leann l Result Performing Organization Address City/[facility] Co de Phone Number [facility] [address] [place] [address] [phone] * (ABNORMAL) Lipid Panel, Standard (04/26/2024 10:40 AM EST) Triglycerides 121 <150 mg/dL [facility] Comment:Desirable Triglyceri de: less than 150 mg/dLBorderline High Triglyceride 150-199 mg/dLHigh Triglyceride: 200-499 mg/dLVery High Triglyceride: greater than or equal to 5OO mg/dL Cholesterol 186 <200 mg/dL [facility] Comment:Desirable Cholestero l: less than 200 mg/dLBorderline High Cholesterol: 200-239 mg/dLHigh Cholesterol: greater than 239 mg/dL LDL Cholesterol Calculated 119(H) <100 mg/dL [facility] Comment:Desirable LDL: less than 100 mg/dLNear Optimal/Above Optimal LDL: 110- 129 mg/dLBorderline High LDL: 130-159 mg/dLHigh LDL: 160-189 mg/dLVery High LDL: greater than or equal to 190 mg/dL HDL Cholesterol 43 >40 mg/dL [facility] Comment:Desirable HDL: great er than 40 mg/dL Note: This HDL assay may give artificially low results in patients with liver disease. Blood Venous blood specimen / Unknown 04/26/2024 10:40 AM EST 04/26/2024 1:42 PM EST [facility] LAB BLOOD ORDERABLES Leann l Result Performing Organization Address City/[facility]/ZIP Co de Phone Number [facility] [address] [place] [address] [phone] * Hemoglobin A1c (04/26/2024 10:40 AM EST) Hemoglobin A1c 5.6 <6.0 % [facility] Comment:Hemoglobin A1C Refer ence Range Adults: 4.8 - 6.0 % Non diabetic: < 6.0 % Goal: < 7.0 %Additional Action Suggested: > 8.0 %Note: Hemoglobin A1c results are invalid for patients with abnormal amounts of HbF. Blood transfusions may impact the HbA1c concentration in the patient sample. Estimated Average Glucose 114 mg/dL [facility] Comment:eAG = Estimated ave rage glucose which is %A1C expressed asaverage glucose, using the formula of the K4P-GuninjkAfduzcs Glucose study (ADAG), Diabetes Care, Vol.31,#8,Oct. 2007 Blood Venous blood specimen / Unknown 04/26/2024 10:40 AM EST 04/26/2024 1:42 PM EST [facility] LAB BLOOD ORDERABLES Leann l Result Performing Organization Address [facility] de Phone Number [facility] [address] [place] [phone] documented in this encounter Visit Diagnoses Diagnosis Routine health [...] documented as of this encounter Care Teams Labor Arbitrator Hearing Office Relationship Specialty Start Date End Date Zuleima Ward MD [address] [place] [address] PCP - General Family Medicine 04/25/20 documented as of this encounter
--- OUTSIDE RECORDS SUMMARY | 2024-05-05 12:26 | XMS_ITS | Encounter Summary ---
Author Organization [employer] Address [address] [place] [address] 7 [place] [address] Care Team Providers Care Microwave Engineer Name Role Phone Zuleima Ward MD Primary Care Provider [phone] Encounter Details Date Type Department Care Team (Late st Contact Info) Description 04/25/2024 Telephone [employer] [facility] [address] [place], [place] [phone] Ani Ramires CNP [address] [place] [address] Social History Tobacco Use Types Packs/Day Years [...] 04/25/2024 8:22 AM EST Incoming fax from [facility] requesting Bone Density order to be [...] documented as of this encounter Care Teams Microwave Engineer Relationship Specialty Start Date End Date Zuleima Ward MD [address] [place] [phone] PCP - General Family Medicine 04/25/20 documented as of this encounter
--- OUTSIDE RECORDS SUMMARY | 2024-05-05 12:26 | XMS_ITS | Encounter Summary ---
Author Organization [employer] Address [address] [place] [address] [address] [place] [address] Care Team Providers Care Development Rep Name Role Phone Zuleima Ward MD Primary Care Provider [phone] Reason for Visit * Reason Onset Date Comments Chart Prep 04/18/2024 Encounter Details Date Type Department Care Team (Late st Contact Info) Description 04/18/2024 Telephone [facility] [address] [place] [address] Ani Ramires CNP [address] [place] [address] Chart Prep Social History Tobacco Use Types [...] documented as of this encounter Care Teams Development Rep Relationship Specialty Start Date End Date Zuleima Ward MD [address] [place] [address] PCP - General Family Medicine 04/25/20 documented as of this encounter
--- OUTSIDE RECORDS SUMMARY | 2024-05-05 12:26 | XMS_ITS | Clinical Summary ---
Author Organization [employer] Address [address] [facility] 7t [place] [address] Care Team Providers Care Shear Grinder Operator Name Role Phone Zuleima Ward MD Primary Care Provider [phone] Allergies Active Allergy Reactions Criticality Noted Date [...] tablet 3 12/15/19 24 025 Discontinued(I neffective) hydroCHLOROthia zide (HYDRODiuril) 25 MG tablet TAKE [...] 25 mg to 75 mg per her drawing in hand's recommendations. Mammo due- orders placed DEXA due- [...] EST): Updated pt med list to reflect drawing in hand recommendations. Pt med regimen should be the [...] Hydralazine, nurse BP check in 2-4 weeks WI advised for worsening dizziness symptoms Nephro re-consulted [...] Department Care Team Description 04/26/2024 Orders Only [facility] [address] [place] [address] 54462 Ani Ramires CNP Menopausal and postmenopausal disorder (Primary Dx) 04/25/2024 Telephone [facility] [address] [place] [address] [phone] Ani Ramires CNP 04/21/2024 2:15 PM EST Office Visit [facility] [address] [place] [address] [phone] Ani Ramires CNP Routine health maintenance (Primary Dx); Anxiety; Essential hypertension; Encounter for immunization; At risk for decreased bone density; Hyperlipidemia, unspecified hyperlipidemia type 04/21/2024 Travel 04/19/2024 Refill [facility] [address] [place] [address] [phone] Zuleima Ward MD 04/18/2024 Telephone [facility] [address] [place] [address] [phone] Ani Ramires CNP Chart Prep 04/14/2024 Patient Outreach [facility] [address] [place], [place] [phone] Zuleima Ward MD Pre-visit Planning ([facility] unable to reach [facility]) 04/04/2024 Refill [facility] [address] [place] [address] 19712 Zuleima Ward MD 03/29/2024 Telephone [facility] [address] [place] [address] [phone] Zuleima Ward MD call back needed 02/29/2024 Refill [facility] [address] [place] [address] [phone] Zuleima Ward MD 02/07/2024 Refill [facility] [address] [place] [address] [phone] Zuleima Ward MD from Last 3 Months Immunizations Name Administration [...] 1955 Sigmoidoscopy 1955 Hepatitis C Screening 11/23/1973 DTaP/Tdap/Td Vaccines (2 - Td or Tdap) 05/25/2023 05/24/2013, 05/27/2010 Mammogram 08/22/2023 08/21/2022, 0611/2022, 10/23/2020, Additional history exists Alcohol/Substance Use Screening 04/21/2025 04/21/2024 Depression Screening 04/21/2025 04/21/2024, 02/07/20 25 SDOH Screening 04/21/2025 04/21/2024 Tobacco Screening 04/21/2025 04/21/2024 Diabetes: Hemoglobin A1C 04/26/2025 025, 01/21/2022, 07/28/2021 Colonoscopy 09/04/2027 09/03/2017 Colorectal Cancer Screening 09/04/2027 Lipid Panel 04/26/2029 04/26/2024, 11/2021, 07/28/2021 RSV Patients and Patients Aged 60 years [...] Procedure Name Priority Date/Time Associated Diagnosis Comments BASIC METABOLIC PANEL Routine 04/26/2024 10:40 AM EST Essential hypertension HEPATIC FUNCTION PANEL Routine 04/26/2024 10:40 AM EST Routine health maintenance LIPID PANEL, STANDARD Routine 04/26/2024 10:40 AM EST Routine health maintenance HEMOGLOBIN A1C Routine 04/26/2024 10:40 AM EST Routine health maintenance BI MAMMOGRAM SCREENING TOMOSYNTHESIS BILATERAL Routine 08/21/2022 12:55 PM EDT HM COLONOSCOPY Routine 09/03/2017 from Last 3 Months or Most Recently Relevant to Health Maintenance Results * Hemoglobin A1c (04/26/2024 10:40 AM EST) Hemoglobin A1c 5.6 <6.0 % [facility] Comment:Hemoglobin A1C Refer ence Range Adults: 4.8 - 6.0 % Non diabetic: < 6.0 % Goal: < 7.0 %Additional Action Suggested: > 8.0 %Note: Hemoglobin A1c results are invalid for patients with abnormal amounts of HbF. Blood transfusions may impact the HbA1c concentration in the patient sample. Estimated Average Glucose 114 mg/dL [facility] Comment:eAG = Estimated ave rage glucose which is %A1C expressed asaverage glucose, using the formula of the I3I-JmjcqbiXkyapwy Glucose study (ADAG), Diabetes Care, Vol.31,#8,Oct. 2007 Blood Venous blood specimen / Unknown 04/26/2024 10:40 AM EST 04/26/2024 1:42 PM EST [facility] BLOOD ORDERABLES Leann l Result [facility] [address] [place] [address] [phone] * Hepatic Function Panel (04/26/2024 10:40 AM EST) Bilirubin, Total 0.3 0.0 - 1.0 mg/dL [facility] Bilirubin, Direct 0.1 0.0 - 0.5 mg/dL [facility] Aspartate Amino Transferase 25 5 - 31 U/L [facility] Alanine Aminotransferase 20 0 - 31 U/L [facility] Total Protein 7.9 6.5 - 8.0 g/dL [facility] Albumin Level 4.0 3.5 - 5.0 g/dL [facility] Alkaline Phosphatase 84 39 - 117 U/L [facility] Blood Venous blood specimen / Unknown 04/26/2024 10:40 AM EST 04/26/2024 1:42 PM EST [facility] BLOOD ORDERABLES Leann l Result Performing Organization Address [facility] Co de Phone Number [facility] [address] [place] [address] [phone] * (ABNORMAL) Lipid Panel, Standard (04/26/2024 10:40 AM EST) Triglycerides 121 <150 mg/dL [facility] Comment:Desirable Triglyceri de: less than 150 mg/dLBorderline High Triglyceride 150-199 mg/dLHigh Triglyceride: 200-499 mg/dLVery High Triglyceride: greater than or equal to 5OO mg/dL Cholesterol 186 <200 mg/dL [facility] Comment:Desirable Cholestero l: less than 200 mg/dLBorderline High Cholesterol: 200-239 mg/dLHigh Cholesterol: greater than 239 mg/dL LDL Cholesterol Calculated 119(H) <100 mg/dL [facility] Comment:Desirable LDL: less than 100 mg/dLNear Optimal/Above Optimal LDL: 110- 129 mg/dLBorderline High LDL: 130-159 mg/dLHigh LDL: 160-189 mg/dLVery High LDL: greater than or equal to 190 mg/dL HDL Cholesterol 43 >40 mg/dL [facility] Comment:Desirable HDL: great er than 40 mg/dL Note: This HDL assay may give artificially low results in patients with liver disease. Blood Venous blood specimen / Unknown 04/26/2024 10:40 AM EST 04/26/2024 1:42 PM EST [facility] BLOOD ORDERABLES Leann l Result Performing Organization Address [facility]/ZIP Co de Phone Number [facility] [address] [place] [address] [phone] * (ABNORMAL) Basic Metabolic Panel (04/26/2024 10:40 AM EST) Sodium 140 135 - 145 mmol/L [facility] Potassium 4.1 3.3 - 5.1 mmol/L [facility] Chloride 107 96 - 108 mmol/L [facility] Carbon Dioxide 26 22 - 29 mmol/L [facility] Anion Gap 11(L) 12 - 20 [facility] Urea Nitrogen (BUN) 8(L) 9 - 16 mg/dL [facility] Creatinine, Serum 0.84 0.5 - 1.4 mg/dL [facility] Estimated Glomerular Filt Rate >60 [facility] Comment:Chronic Kidney Disea se: Estimated GFR < 60 mL/min/1.05k0Oitcxp Kidney Disease: Estimated GFR < 15 mL/min/1.73m2 Glucose 101 60 - 115 mg/dL [facility] Calcium 8.9 8.4 - 10.2 mg/dL [facility] Blood Venous blood specimen / Unknown 04/26/2024 10:40 AM EST 04/26/2024 1:42 PM EST [facility] BLOOD ORDERABLES Leann l Result [facility] [address] [place] [address] [phone] * BI Mammogram Screening Tomosynthesis Bilateral (08/21/2022 12:55 PM EDT) Anatomical Region Laterality Modality Breast Bilateral Mammography 08/21/2022 12:5 5 PM EDT Narrative 08/24/2022 8:37 AM EDT ? [facility] ? [address] ?[place] [address] ? Mammography Report ? Signed ? Patient: Lakhani,Danni ?MR#: [id number] ?? [id number] ? : 1955 ?Acct:[id number] ? Age/Sex: 66 / F ?ADM Date: 06/09/23 ? Loc: HO.MAMMO ? Attending Dr: Zuleima Ward MD ? Ordering Physician: Zuleima Ward ?Results: 2Benign F ?? indings ? Date of Service: 08/21/22 ?Follow Up: 1 Year From Orig ?? inal Mammogram ? Procedure(s): MM tomosynthesis screening BI ?? Accession Number(s): [id number] ? cc: Zuleima Ward ? EXAMINATION: ?? [...] signed by Young Rubio MD in OV> ?08/24/22833 ? DD/ 1255 ? TD/TT: ? Movie Shot Camera Operator: GONSALES ? Procedure Note Donotcharitointerpreter, Image - [facility]/10/2022 [facility] [address] [place], [place] [address] Mammography Report Signed Patient: Danni LakhaniMR#: [id number] : 6Acct:[id number] Age/Sex: 66 / FADM Date: 08/21/22 Loc: HO.MAMMO Attending Dr: Zuleima Ward MD Ordering Physician: Misael Wardults: 2Benign F indings Date of Service: 08/21/22Follow Up: 1 Year From Orig inal Mammogram Procedure(s): MM tomosynthesis screening BI Accession Number(s): [id number] cc: Zuleima Ward EXAMINATION: MM SCREENING DIGITAL [...] Rubio MD Signed By: <Electronically signed by Yonug Rubio MD in OV> 08/24/22 0834 DD/ 1255 TD/TT: Movie Shot Camera Operator: DRU [facility] External Provider IMG BI PROCEDURES Final Result * Hm Colonoscopy (09/03/2017) Historical Provider HEALTH MAINTENANCE Final Result from Last 3 Months or Most Recently Relevant to Health Maintenance [place] [address] [facility] STANDARD [employer] PPO DIANA Care Teams Shear Grinder Operator Relationship Specialty Start Date End Date Zuleima Ward MD [address] [place] [phone] PCP - General Family Medicine 04/25/20
--- OUTSIDE RECORDS SUMMARY | 2024-05-05 12:26 | XMS_ITS | Encounter Summary ---
Author Organization [employer] Address [address] [place] [address] 7 [place] [address] Care Team Providers Care Esl Instructional Assistant Name Role Phone Zuleima Ward MD Primary Care Provider [phone] Reason for Referral * Imaging (Routine) - Authorized Specialty Diagnoses / Procedures Referred By Lynne gardner Referred To Contact Radiology Diagnoses Menopausal and postmenopausal disorder Procedures BD DEXA Axial Ani Ramires CNP [address] [place] [address] Phone: tel: fax: [address] Phone: tel: fax: Referral ID Status Reason Start Date Expiration Date V isits Requested Visits Authorized [id number] Authorized 04/26/2024 04/26/2025 1 1 Encounter Details Date Type Department Care Team (Late st Contact Info) Description 04/26/2024 Orders Only [facility] [address] [place], [place] [phone] Ani Ramires CNP [address] [place], [place] [phone] Menopausal and postmenopausal disorder (Primary Dx) Social [...] documented as of this encounter Care Teams Esl Instructional Assistant Relationship Specialty Start Date End Date Zuleima Ward MD [address] [place] [address] PCP - General Family Medicine 04/25/20 documented as of this encounter
--- OUTSIDE RECORDS SUMMARY | 2024-05-05 12:26 | XMS_ITS | Encounter Summary ---
Author Organization [id number] Address [address] [facility] 7t [place] [address] Care Team Providers Care Control Valve Technician Name Role Phone Zuleima Ward MD Primary Care Provider [phone] Encounter Details Date Type Department Care Team ([facility] st Contact Info) Description 12/15/2023 Orders Only [facility] [address] [place] [address] Zuleima Ward MD [address] [place] [address] Social History Tobacco Use Types Packs/Day Years [...] documented as of this encounter Care Teams Control Valve Technician Relationship Specialty Start Date End Date Zuleima Ward MD [address] [place] [phone] PCP - General Family Medicine 04/25/20 documented as of this encounter
--- OUTSIDE RECORDS SUMMARY | 2024-05-05 12:27 | XMS_ITS | Encounter Summary ---
Author Organization [employer] Address [address] [facility] 7t [place] [address] Care Team Providers Care Payroll Auditor Name Role Phone Zuleima Ward MD Primary Care Provider [phone] Reason for Visit * Reason Comments Med Refill Encounter Details Date Type Department Care Team ([facility] st Contact Info) Description 11/22/2023 Refill [facility] [address] [place] [address] Re Crespo MD [address] [place] [address] Social History Tobacco Use Types Packs/Day Years [...] documented as of this encounter Care Teams Payroll Auditor Relationship Specialty Start Date End Date Zuleima Ward MD [address] [place] [phone] PCP - General Family Medicine 04/25/20 documented as of this encounter
--- OUTSIDE RECORDS SUMMARY | 2024-05-05 12:27 | XMS_ITS | Encounter Summary ---
Author Organization [employer] Address [address] [facility] 7t [place] [address] Care Team Providers Care Optometry Assistant Name Role Phone Zuleima Ward MD Primary Care Provider [phone] Encounter Details Date Type Department Care Team (Late st Contact Info) Description 06/09/2023 Orders Only [facility] [address] [place] [address] Zuleima Ward MD [address] [place] [address] Fibromyalgia (Primary Dx) Social History Tobacco Use [...] documented as of this encounter Care Teams Optometry Assistant Relationship Specialty Start Date End Date Zuleima Ward MD [address] [place] [phone] PCP - General Family Medicine 04/25/20 documented as of this encounter
== END 2024-05-05 11:21 | disposition home or self-care (01) ==
LOC: HO.MAMMO 11:20
DX: Z13.820 Encounter for screening for osteoporosis (principal); Z78.0 Asymptomatic menopausal state
CPT/HCPCS: 77080

== ENCOUNTER → 2024-05-05 11:30 | Outpatient (BNV) | payer OTHER, SELFPAY | PROVIDERS: Visit Provider Radiology Diagnostic Radiology | DX: E28.39 Other primary ovarian failure (principal) | CPT/HCPCS: 77080 ==

== ENCOUNTER 2024-05-23 11:21 | Outpatient (REF) | payer OTHER, SELFPAY ==
--- OUTSIDE RECORDS SUMMARY | 2024-05-23 14:03 | XMS_ITS | Encounter Summary ---
Author Organization [employer] [facility] Address [address] [place] [address] 7t [place] [address] Care Team Providers Care Supervisor Melt House Name Role Phone Zuleima Ward MD Primary Care Provider [phone] Encounter Details Date Type Department Care Team (Late st Contact Info) Description 11/18/2022 Orders Only [facility] [address] [place] [address] Provider, MD Jesica Social History Tobacco Use [...] on filedocumented in this encounter Care Teams Supervisor Melt House Relationship Specialty Start Date End Date Zuleima Ward MD [address] [place] [address] PCP - General Family Medicine 04/25/20 documented as of this encounter
--- OUTSIDE RECORDS SUMMARY | 2024-05-23 14:03 | XMS_ITS | Encounter Summary ---
Author Organization [employer] Address [address] [facility] 7t [place] [address] Care Team Providers Care Sizing Sprayer Name Role Phone Zuleima Ward MD Primary Care Provider [phone] Encounter Details Date Type Department Care Team (Late st Contact Info) Description 06/09/2023 Orders Only [facility] [address] [place] [address] Zuleima Ward MD [address] [place] [address] Fibromyalgia (Primary Dx) Social History Tobacco Use [...] documented as of this encounter Care Teams Sizing Sprayer Relationship Specialty Start Date End Date Zuleima Ward MD [address] [place] [address] PCP - General Family Medicine 04/25/20 documented as of this encounter
--- OUTSIDE RECORDS SUMMARY | 2024-05-23 14:03 | XMS_ITS | Clinical Summary ---
Author Organization [facility] Address [address] [place] [phone] Phone Care Team Providers Care Medical Assistant Prn Name Role Phone Zuleima Ward MD Primary [...] [place]IC[place] [address] Care Teams Medical Assistant Prn Relationship Specialty Start Date End Date Zuleima Ward MD PCP - General Combat Systems Operator Mine Warfare 01/03/21
--- OUTSIDE RECORDS SUMMARY | 2024-05-23 14:03 | XMS_ITS | Encounter Summary ---
Author Organization [employer] Address [address] [place] [address] 7t [place] [address] Care Team Providers Care Social Media Campaign Manager Name Role Phone Zuleima Ward MD Primary Care Provider [phone] Reason for Visit * Reason Onset Date Comments Change PCP 06/07/2023 Encounter Details Date Type Department Care Team ([facility] st Contact Info) Description 06/07/2023 Telephone [facility] [address] [place] [address] Zuleima Ward MD [address] [place] [address] Change PCP Social History Tobacco Use Types [...] your housing situation today? I have joe lmea 05/24/[address] you li [...] 1:59 PM EDT RN called pt via [employer] interpretor #[id number], pt states she would like to change to a Macanese speaking provider to help understand her more. mPt is complaining iof bone pain, informed to come to [facility] for evaluation. Pt states understanding. Please sandra change in PCP request Tc from pt requesting a PCP change due to not meeting medical needs. Please contact pt at [phone] (Macanese) * Telephone Encounter - Cookie Pedraza - 06/07/2023 11:39 AM EDT Tc from pt requesting a PCP change due to not meeting medical needs. Please contact pt at [phone] (Macanese) documented in this encounter Plan of Treatment Not on file documented as of this encounter Visit Diagnoses Not on filedocumented in this encounter Additional Health Concerns Assessment Noted Time PHQ-9 Depression Total Score: 3 05/24/19 24 11:36 AM EDT documented as of this encounter Care Teams Social Media Campaign Manager Relationship Specialty Start Date End Date Zuleima Ward MD [address] [place] [phone] PCP - General Family Medicine 04/25/20 documented as of this encounter
--- OUTSIDE RECORDS SUMMARY | 2024-05-23 14:03 | XMS_ITS | Encounter Summary ---
Author Organization [facility] Address [address] [facility] 7t [place] [address] Care Team Providers Care Manager Field Service Name Role Phone Zuleima Ward MD Primary Care Provider [phone] Reason for Referral * Consultation (Routine) - Authorized Specialty Diagnoses / Procedures Referred By Lynne gardner Referred To Contact Pharmacy Diagnoses Essential hypertension Mansi Nolasoc MD [address] [place] [address] Phone: tel: fax: Referral ID Status Reason Start Date Expiration Date Visits Requested Visits Authorized [id number] Authorized Consult and Treat 05/22/2024 05/22/2025 6 6 Encounter Details Date Type Department Care Team (Late st Contact Info) Description 05/22/2024 Orders Only [facility] [address] [place], [place] [phone] Mansi Nolasco MD [address] [place], [place] [phone] Essential hypertension (Primary Dx) Social History Tobacco Use Types [...] of this encounter Plan of Treatment Scheduled Referrals Name Type Priority Associated Diagnoses Orde r Schedule Referral to Pharmacy CDTM Outpatient Referral Routine Essential hypertension Ordered: 05/22/2024 documented as of this encounter Visit Diagnoses Diagnosis Essential hypertension- Primary Unspecified essential hypertension documented in this encounter Additional Health Concerns Assessment Noted Time PHQ-9 Depression Total Score: 1 04/21/19 25 1:50 PM EST documented as of this encounter Care Teams Manager Field Service Relationship Specialty Start Date End Date Zuleima Ward MD [address] [place] [address] PCP - General Family Medicine 04/25/20 documented as of this encounter
--- OUTSIDE RECORDS SUMMARY | 2024-05-23 14:03 | XMS_ITS | Encounter Summary ---
Author Organization [employer] Address [address] [place] [address] 7 [place] [address] Care Team Providers Care Melter Clerk Name Role Phone Zuleima Ward MD Primary Care Provider [phone] Reason for Referral * Imaging (Routine) - Closed Specialty Diagnoses / Procedures Referred By Lynne gardner Referred To Contact Radiology Diagnoses Menopausal and postmenopausal disorder Procedures BD DEXA Axial Ani Ramires CNP [address] [place] [address] Phone: tel: fax: [address] Phone: tel: fax: Referral ID Status Reason Start Date Expiration Date Visits Re quested Visits Authorized [id number] Closed 04/26/2024 04/26/2025 1 1 Encounter Details Date Type Department Care Team (Late st Contact Info) Description 04/26/2024 Orders Only [facility] [address] [place], [place] [phone] Ani Ramires CNP [address] [place], [place] [phone] Menopausal and postmenopausal disorder (Primary Dx) Social [...] Procedure Name Priority Date/Time Associated Diagnosis Comments BD DEXA AXIAL Routine 05/05/2024 11:30 AM EST Menopausal and postmenopausal disorder documented in this encounter Results * BD DEXA Axial (05/05/2024 11:30 AM EST) Anatomical Region Laterality Modality Body Radiographic Flavia ging 05/05/2024 11:3 0 AM EST Narrative 05/08/2024 8:55 AM EST ? [facility] ? [address] ?[place] [address] ? Mammography Report ? Signed ? Patient: Lakhani,Danni ?MR#: [id number] ?? [id number] ? : 1955 ?Acct:[id number] ? Age/Sex: 68 / F ?ADM Date: 05/05/24 ? Loc: HO.MAMMO ? Attending Dr: Ani Ramires [employer]VANCED MANUFACTURING VICE PRESIDENT ? Ordering Physician: Ani Ramires ?Results: ? Date of Service: 05/05/24 ?Follow Up: ? Procedure(s): XR DEXA axial skeleton ?? Accession Number(s): [id number] ? cc: Ani Ramires ? EXAMINATION: ??DXA BONE DENSITY AXIAL ? HISTORY: ??Estrogen deficiency ? TECHNIQUE: Hyperink Dual energy absorptiometry (DEXA) ?? of the lumbar spine, total left hip, and femoral neck was performed. ? COMPARISON: ??There are no prior studies for comparison. ? FINDINGS: ? The bone mineral density of the lumbar spine is 0.867 with a T-score of ?? -2.5, and a Z-score of -1.0. ? The bone mineral density of the left total hip is 0.835 with a T-score ?? of -1.4, and a Z-score of -0.1. ? The bone mineral density of the left femoral neck is 0.796 with a ?? T-score of -1.7, and a Z-score of -0.2. ? FRACTURE RISK: ?? The FRAX index suggests a risk of major osteoporotic fracture of 9.4%, ?? and of hip fracture 1.4%. ? MM/XR DEXA axial skeleton ?? IMPRESSION: ?? Based on bone mineral density, and according to World Health ?? Organization (WHO) criteria, the diagnosis is consistent with ?? osteoporosis. ? All bone density values are in grams per centimeter squared (g/cm2). ?? Statistically, 68% of repeat scans fall within 1 SD (+/- 0.010 g/cm2 ?? for AP spine L1-L4) and 1 SD (+/- 0.012 g/cm2 for femur total) ?? FRAX is a trademark of the [employer]'s ?? [employer] for Metabolic Bone Disease, a World Health Organization (WHO) ?? Collaborating Center. ? Electronically signed by: ??Rudolph Forrester MD ??05/08/2024 08:52 AM EST ?? RP ? Dictated By: ?Rudolph Forrester MD ? Signed By: ?<Electronically signed by Rudolph Forrester MD in OV> ?05/08/24 0852 ? DD/ 1130 ? TD/TT: 05/05/24 1158 ? Training Manager: ? Procedure Note Mauriceter, Image - 05/08/2024 [facility] [address] [place] [address] Mammography Report Signed Patient: Danni LakhaniMR#: [id number] : 6Acct:[id number] Age/Sex: 68 / FADM Date: 05/05/24 Loc: LUCILA Attending Dr: Ani Ramires ADVANCED MANUFACTURING VICE PRESIDENT Ordering Physician: Kimber Ramiresults: Date of Service: 05/05/24Follow Up: Procedure(s): XR DEXA axial skeleton Accession Number(s): [id number] cc: Ani Ramires EXAMINATION: DXA BONE DENSITY AXIAL HISTORY: Estrogen deficiency TECHNIQUE: Hyperink Dual energy absorptiometry (DEXA) of the lumbar spine, total left hip, and femoral neck was performed. COMPARISON: There are no prior studies for comparison. FINDINGS: The bone mineral density of the lumbar spine is 0.867 with a T-score of -2.5, and a Z-score of -1.0. The bone mineral density of the left total hip is 0.835 with a T-score of -1.4, and a Z-score of -0.1. The bone mineral density of the left femoral neck is 0.796 with a T-score of -1.7, and a Z-score of -0.2. FRACTURE RISK: The FRAX index suggests a risk of major osteoporotic fracture of 9.4%, and of hip fracture 1.4%. MM/XR DEXA axial skeleton IMPRESSION: Based on bone mineral density, and according to World Health Organization (WHO) criteria, the diagnosis is consistent with osteoporosis. All bone density values are in grams per centimeter squared (g/cm2). Statistically, 68% of repeat scans fall within 1 SD (+/- 0.010 g/cm2 for AP spine L1-L4) and 1 SD (+/- 0.012 g/cm2 for femur total) FRAX is a trademark of the [employer] for Metabolic Bone Disease, a World Health Organization (WHO) Collaborating Center. Electronically signed by: Rudolph Forrester MD 05/08/2024 08:52 AM EST Dictated By: Rudolph Forrester MD Signed By: <Electronically signed by Rudolph Forrester MD in OV> 05/08/24 0852 DD/ 1130 TD/TT: 05/05/24 1158 Training Manager: Ani Ramires [facility] DXA PROCEDURES Final Result documented in this encounter Visit Diagnoses Diagnosis Menopausal and postmenopausal disorder- Primary Unspecified menopausal and postmenopausal disorder documented in this encounter Additional Health Concerns Assessment Noted Time PHQ-9 Depression Total Score: 1 04/21/19 25 1:50 PM EST documented as of this encounter Care Teams Melter Clerk Relationship Specialty Start Date End Date Zuleima Ward MD [address] [place] [address] PCP - General Family Medicine 04/25/20 documented as of this encounter
--- OUTSIDE RECORDS SUMMARY | 2024-05-23 14:03 | XMS_ITS | Clinical Summary ---
Author Organization [employer] Address [address] [facility] 7t [place] [address] Care Team Providers Care Public Housing Manager Name Role Phone Zuleima Ward MD Primary Care Provider [phone] Allergies Active Allergy Reactions Criticality Noted Date Comments Fish Allergy 09/18/2013 Other reaction(s): throat closes up, stuffy nose Lisinopril Other 09/24/2011 Other reaction(s): angioedema ? Medications cyanocobalamin (Vitamin B-12) 500 MCG tabletIndications :Vitamin B12 deficiency Take 1 tablet (500 mcg) by mouth in the morning. 90 tablet 3 3 Active sennosides (Senokot) 8.6 MG tabletIndications :Constipation, unspecified constipation type Take 1-2 tablets (8.6-17.2 mg) by mouth if needed each day for constipation. 180 tablet 3 Active losartan (Cozaar) 100 MG tablet Take 1 tablet (100 mg) by mouth in the morning. 90 tablet 3 3 Active cetirizine (ZyrTEC) 10 MG tablet Take 1 tablet (10 mg) by mouth Once per day. 30 tablet 11 4 08/24/19 25 Active olopatadine (Pataday) 0.2 % ophthalmic solution Administer 1 drop into affected eye(s) Once per day. 2.5 mL 2 4 Active cyclobenzaprine (Flexeril) 5 MG tabletIndications :Fibromyalgia TAKE 1 TABLET BY MOUTH AT BEDTIME 30 tablet 4 Active atorvastatin (Lipitor) 40 MG tablet TAKE 1 TABLET BY MOUTH AT BEDTIME 90 tablet 3 4 Active hydrALAZINE (Apresoline) 25 MG tablet TAKE 1 TABLET BY MOUTH THREE TIMES DAILY 270 tablet 3 4 Active famotidine (Pepcid) 20 MG tablet TAKE 1 TABLET BY MOUTH ONCE DAILY 90 tablet 3 4 Active D3 Super Strength 50 MCG (2000 UT) capsule TAKE 1 CAPSULE BY MOUTH EVERY DAY 90 capsule 3 4 Active Acetaminophen Extra Strength 500 MG tablet TAKE 2 TABLETS BY MOUTH EVERY 8 HOURS NEEDED FOR MILD PAIN 90 tablet 1 5 Active fluticasone (Flonase) 50 MCG/ACT nasal spray INSTILL 2 SPRAYS IN EACH NOSTRIL ONCE DAILY 16 g 2 5 Active OXcarbazepine (Trileptal) 300 MG tabletIndications :Anxiety Take 0.5 tablets (150 mg) by mouth 2 times daily. 30 tablet 11 5 04/16/19 26 Active NIFEdipine CC (Adalat CC) 60 MG 24 hr tabletIndications :Essential hypertension Take 2 tablets (120 mg) by mouth before breakfast. Do not crush, chew, or split. 60 tablet 11 5 04/21/19 26 Active spironolactone (Aldactone) 25 MG tabletIndications :Essential hypertension Take 3 tablets (75 mg) by mouth Once per day. 90 tablet 11 5 04/21/19 26 Active hydroCHLOROthiazi de (HYDRODiuril) 25 MG tabletIndications :Essential hypertension Take 1 tablet (25 mg) by mouth Once per day. 90 tablet 3 5 Active FLUoxetine (PROzac) 10 MG capsuleIndication s:Anxiety Take 1 capsule (10 mg) by mouth Once per day. 30 capsule 11 5 Active Active Problems Problem Noted Date Diagnosed Date Routine health maintenance 04/21/2024 Assessment & Plan (04/21/2024 3:14 PM EST): Pt due for routine bloodwork, pt also on spironolactone will order BMP as well to trend potassium, pt plans to complete bloodwork in 1 week as we have just increased her spironolactone from 25 mg to 75 mg per her health and wellness instructor's recommendations. Mammo due- orders placed DEXA due- [...] EST): Updated pt med list to reflect health and wellness instructor recommendations. Pt med regimen should be the [...] Encounters Date Type Department Care Team Description 05/22/2024 Orders Only [facility] MEDICINE [address] [place] [phone] Mansi Nolasco MD Essential hypertension (Primary Dx) 05/19/2024 Telephone [facility] MEDICINE [address] [place] [phone] Zuleima Ward MD 04/26/2024 Orders Only [facility] MEDICINE [address] [place] [phone] Ani Ramires CNP Menopausal and postmenopausal disorder (Primary Dx) 04/25/2024 Telephone [facility] [address] [place] [phone] Ani Ramires CNP 04/21/2024 2:15 PM EST Office Visit [address] [address] Ani Ramires CNP Routine health maintenance (Primary Dx); Anxiety; Essential hypertension; Encounter for immunization; At risk for decreased bone density; Hyperlipidemia, unspecified hyperlipidemia type 04/21/2024 Travel 04/19/2024 Refill [facility] [address] [place] [phone] Zuleima Ward MD 04/18/2024 Telephone [facility] MEDICINE [address] [place] [phone] Ani Ramires CNP Chart Prep 04/14/2024 Patient Outreach [facility] [address] [place], [place] [phone] Zuleima Ward MD Pre-visit Planning ([facility] unable to reach LVM) 04/04/2024 Refill [facility] MED[facility]INE [address] [place] [address] [phone] Zuleima Ward MD 03/29/2024 Telephone [facility] MED[facility]INE [address] [place] [phone] Zuleima Ward MD call back needed 02/29/2024 Refill [facility] MED[facility] [address] [place] [phone] Zuleima Ward MD from Last 3 Months Immunizations Name Administration Dates Next Due Influenza High-dose Quadriva lent Preservative Free 12/15/2021 Influenza injectable quadriv alent IIV4 with preservative 12/27/2017,02/24/2017,06/21/2015 Influenza injectable quadriv alent preservative free 12/23/2018,03/19/2016 Influenza, High Dose Seasona l, Preservative Free 04/21/2024 Influenza, IIV3, injectable 12/18/2013, 1 Influenza, Split (incl. giuseppe fied surface antigen) 12/16/2012,12/10/2011 Moderna Covid-19 Vaccine 12+ 04/23/2021,09/24/19,08/29/2020 Pfizer Covid-19 Vaccine 12+ 04/21/2024, 2 Pneumococcal [...] your housing situation today? I have joe sing 05/24/[address] you li [...] Tdap) 05/25/2023 05/24/2013, 05/27/2010 Mammogram 08/22/2023 08/21/2022, 06/0 11/2022, 10/23/2020, Additional history exists Alcohol/Substance Use Screening 04/21/2025 04/21/2024 Depression Screening 04/21/2025 04/21/2024, 04/21/19 25 SDOH Screening 04/21/2025 04/21/2024 Tobacco Screening [...] 11:30 AM EST Menopausal and postmenopausal disorder BASIC METABOLIC PANEL Routine 04/26/2024 10:40 AM [...] Recently Relevant to Health Maintenance Results * BD DEXA Axial (05/05/2024 11:30 AM EST) Anatomical Region Laterality Modality Body Radiographic Flavia ging 05/05/2024 11:3 0 AM EST Narrative 05/08/2024 8:55 AM EST ? [facility] ? [address] ?[place] [address] ? Mammography Report ? Signed ? Patient: Lakhani,Danni ?MR#: [id number] ?? [id number] ? : 1955 ?Acct:[id number] ? Age/Sex: 68 / F ?ADM Date: 02/21/25 ? Loc: HO.MAMMO ? Attending Dr: Alexxis Ramires COMMERCIAL SALES MANAGER ? Ordering Physician: Ramires,Alexxis ?Results: ? Date of Service: 02/21/25 ?Follow Up: ? Procedure(s): XR DEXA axial skeleton ?? Accession Number(s): [id number] ? cc: Ramires,[place]xilulu ? EXAMINATION: ??DXA BONE DENSITY AXIAL ? HISTORY: ??Estrogen deficiency ? TECHNIQUE: WorkProducts Dual energy absorptiometry (DEXA) ?? of the [...] is a trademark of the [employer]'s ?? [employer] for Metabolic Bone Disease, a World Health Organization (WHO) ?? Collaborating Center. ? Electronically signed by: ??Rudolph Forrester MD ??05/08/2024 08:52 AM EST ?? RP ? Dictated By: ?Rudolph Forrester MD ? Signed By: ?<Electronically signed by Rudolph Forrester MD in OV> ?05/08/24 0852 ? DD/ 1130 ? TD/TT: 05/05/24 1158 ? Park Manager: ? Procedure Note Donotuseinterpreter, Image - 05/08/2024 [facility] [address] [place] [address] Mammography Report Signed Patient: Danni LakhaniMR#: [id number] : 6Acct:[id number] Age/Sex: 68 / FADM Date: 05/05/24 Loc: LUCILA Attending Dr: Ani Ramires COMMERCIAL SALES MANAGER Ordering Physician: Kimber Ramiresults: Date of Service: 05/05/24Follow Up: Procedure(s): XR DEXA axial skeleton Accession Number(s): [id number] cc: Ani Ramires EXAMINATION: DXA BONE DENSITY AXIAL HISTORY: Estrogen deficiency TECHNIQUE: WorkProducts Dual energy absorptiometry (DEXA) of the lumbar [...] is a trademark of the [employer] for Metabolic Bone Disease, a World Health Organization (WHO) Collaborating Center. Electronically signed by: Rudolph Forrester MD 05/08/2024 08:52 AM EST RP Dictated By: Rudolph Forrester MD Signed By: <Electronically signed by Rudolph Forrester MD in OV> 05/08/24 0852 DD/ 1130 TD/TT: 05/05/24 1158 Park Manager: [facility] IMG DXA PROCEDURES Final Result * Hemoglobin A1c (04/26/2024 10:40 AM EST) Hemoglobin A1c 5.6 <6.0 % [facility] Comment:Hemoglobin A1C Refer ence Range Adults: 4.8 - 6.0 % Non diabetic: < 6.0 % Goal: < 7.0 %Additional Action Suggested: > 8.0 %Note: Hemoglobin A1c results are invalid for patients with abnormal amounts of HbF. Blood transfusions may impact the HbA1c concentration in the patient sample. Estimated Average Glucose 114 mg/dL [facility] Comment:eAG = Estimated ave rage glucose which is %A1C expressed asaverage glucose, using the formula of the L7J-RsaawbyRrzqejl Glucose study (ADAG), Diabetes Care, Vol.31,#8,Oct. 2007 Blood Venous blood specimen / Unknown 04/26/2024 10:40 AM EST 04/26/2024 1:42 PM EST [facility] LAB BLOOD ORDERABLES Leann mireles Result [facility] [address] [place] [phone] * Hepatic Function Panel (04/26/2024 10:40 AM EST) Bilirubin, Total 0.3 0.0 - 1.0 mg/dL [facility] Bilirubin, Direct 0.1 0.0 - 0.5 mg/dL [facility] Aspartate Amino Transferase 25 5 - 31 U/L [facility] Alanine Aminotransferase 20 0 - 31 U/L [facility] Total Protein 7.9 6.5 - 8.0 g/dL [facility] Albumin Level 4.0 3.5 - 5.0 g/dL [facility] Alkaline Phosphatase 84 39 - 117 U/L [facility] Blood Venous blood specimen / Unknown 04/26/2024 10:40 AM EST 04/26/2024 1:42 PM EST Ani Ramires [facility] BLOOD ORDERABLES Leann l Result [facility] [address] [place] [phone] * (ABNORMAL) Lipid Panel, Standard (04/26/2024 10:40 AM EST) Triglycerides 121 <150 mg/dL [facility] Comment:Desirable Triglyceri de: less than 150 mg/dLBorderline High Triglyceride 150-199 mg/dLHigh Triglyceride: 200-499 mg/dLVery High Triglyceride: greater than or equal to 5OO mg/dL Cholesterol 186 <200 mg/dL [facility] Comment:Desirable Cholestero l: less than 200 mg/dLBorderline High Cholesterol: 200-239 mg/dLHigh Cholesterol: greater than 239 mg/dL LDL Cholesterol Calculated 119(H) <100 mg/dL [facility] Comment:Desirable LDL: less than 100 mg/dLNear Optimal/Above Optimal LDL: 110- 129 mg/dLBorderline High LDL: 130-159 mg/dLHigh LDL: 160-189 mg/dLVery High LDL: greater than or equal to 190 mg/dL HDL Cholesterol 43 >40 mg/dL [facility] Comment:Desirable HDL: great er than 40 mg/dL Note: This HDL assay may give artificially low results in patients with liver disease. Blood Venous blood specimen / Unknown 04/26/2024 10:40 AM EST 04/26/2024 1:42 PM EST [facility] LAB BLOOD ORDERABLES Leann l Result Performing Organization Address City/[facility] Co de Phone Number [facility] [address] [place] [address] [phone] * (ABNORMAL) Basic Metabolic Panel (04/26/2024 10:40 AM EST) Sodium 140 135 - 145 mmol/L [facility] Potassium 4.1 3.3 - 5.1 mmol/L [facility] Chloride 107 96 - 108 mmol/L [facility] Carbon Dioxide 26 22 - 29 mmol/L [facility] Anion Gap 11(L) 12 - 20 [facility] Urea Nitrogen (BUN) 8(L) 9 - 16 mg/dL [facility] Creatinine, Serum 0.84 0.5 - 1.4 mg/dL [facility] Estimated Glomerular Filt Rate >60 [facility] Comment:Chronic Kidney Disea se: Estimated GFR < 60 mL/min/1.77r6Tumdhc Kidney Disease: Estimated GFR < 15 mL/min/1.73m2 Glucose 101 60 - 115 mg/dL [facility] Calcium 8.9 8.4 - 10.2 mg/dL [facility] Blood Venous blood specimen / Unknown 04/26/2024 10:40 AM EST 04/26/2024 1:42 PM EST [facility] LAB BLOOD ORDERABLES Leann l Result Performing Organization Address City/[facility]/ZIP Co de Phone Number [facility] [address] [place] [address] [phone] * BI Mammogram Screening Tomosynthesis Bilateral (08/21/2022 12:55 PM EDT) Anatomical Region Laterality Modality Breast Bilateral Mammography 08/21/2022 12:5 5 PM EDT Narrative 08/24/2022 8:37 AM EDT ? [facility] ? [address] ?[place] [address] ? Mammography Report ? Signed ? Patient: Lakhani,Danni ?MR#: [id number] ?? [id number] ? : 1955 ?Acct:[id number] ? Age/Sex: 66 / F ?ADM Date: 08/21/22 ? Loc: HO.MAMMO ? Attending Dr: Zuleima Ward MD ? Ordering Physician: Zuleima Ward ?Results: 2Benign F ?? indings ? Date of Service: 08/21/22 ?Follow Up: 1 Year From Orig ?? inal Mammogram ? Procedure(s): MM tomosynthesis screening BI ?? Accession Number(s): [id number] ? cc: Zuleima Ward ? EXAMINATION: ?? [...] 0834 ? DD/ 1255 ? TD/TT: ? Park Manager: GONSALES ? Procedure Note Garfield, Brian - 09/10/2022 [facility] [address] [place] [address] Mammography Report Signed Patient: Danni LakhaniMR#: [id number] : 6Acct:[id number] Age/Sex: 66 / FADM Date: 08/21/22 Loc: LUCILA Attending Dr: Zuleima Ward MD Ordering Physician: Misael Wardults: 2Benign F indings Date of Service: 08/21/22Follow Up: 1 Year From Orig inal Mammogram Procedure(s): MM tomosynthesis screening BI Accession Number(s): [id number] cc: Zuleima Ward EXAMINATION: MM SCREENING DIGITAL [...] in OV> 08/24/22 0834 DD/ 1255 TD/TT: Park Manager: [facility] External Provider IMG BI PROCEDURES Final Result * Hm Colonoscopy (09/03/2017) Historical Provider HEALTH MAINTENANCE Final Result from Last 3 Months or Most Recently Relevant to Health Maintenance Insurance [facility] [employer] P[employer] [place] Care Teams Public Housing Manager Relationship Specialty Start Date End Date Zuleima Ward MD [address] [place] [phone] PCP - General Family Medicine 04/25/20
--- OUTSIDE RECORDS SUMMARY | 2024-05-23 14:03 | XMS_ITS | Encounter Summary ---
Author Organization [employer] Address [address] [facility] 7t [place] [address] Care Team Providers Care Clinical Exercise Physiologist Name Role Phone Zuleima Ward MD Primary Care Provider [phone] Encounter Details Date Type Department Care Team ([facility] st Contact Info) Description 12/15/2023 Orders Only [facility] [address] [place] [address] Zuleima Ward MD [address] [place] [address] Social History Tobacco Use Types Packs/Day Years [...] documented as of this encounter Care Teams Clinical Exercise Physiologist Relationship Specialty Start Date End Date Zuleima Ward MD [address] [place] [phone] PCP - General Family Medicine 04/25/20 documented as of this encounter
--- OUTSIDE RECORDS SUMMARY | 2024-05-23 14:03 | XMS_ITS | Encounter Summary ---
Author Organization [employer] Address [address] [facility] 7t [place] [address] Care Team Providers Care Director Of Logistics Name Role Phone Zuleima Ward MD Primary Care Provider [phone] Encounter Details Date Type Department Care Team ([facility] st Contact Info) Description 05/19/2024 Telephone [facility] MEDICINE [address] [place] [address] Zuleima Ward MD [address] [place] [address] Social History Tobacco Use Types Packs/Day Years [...] encounter Miscellaneous Notes * Telephone Encounter - Destiny Ceron - 05/19/2024 1:57 PM EST Pharmacy is requesting an updated CDTM referral with a diagnosis of hypertension I10 Essential hypertension . This is to replace existing referral that no longer meets visit requirements. Please sendat your earliest convenience. Thank you! documented in this encounter Plan of Treatment Not on file documented as of this encounter Visit Diagnoses Not on filedocumented in this encounter Additional Health Concerns Assessment Noted Time PHQ-9 Depression Total Score: 1 04/21/19 25 1:50 PM EST documented as of this encounter Care Teams Director Of Logistics Relationship Specialty Start Date End Date Zuleima Ward MD [address] [place] [phone] PCP - General Family Medicine 04/25/20 documented as of this encounter
--- OUTSIDE RECORDS SUMMARY | 2024-05-23 14:03 | XMS_ITS | Encounter Summary ---
Author Organization [employer] Address [address] [place] [address] 7t [place] [address] Care Team Providers Care Resort Host Name Role Phone Zuleima Ward MD Primary Care Provider [phone] Encounter Details Date Type Department Care Team (Late st Contact Info) Description 04/25/2024 Telephone [facility] [address] [place], [place] [phone] Ani Ramires CNP [address] [place] [address] Social History Tobacco Use Types Packs/Day Years [...] 04/25/2024 8:22 AM EST [place] [facility] [place] Density order to be update [...] documented as of this encounter Care Teams Resort Host Relationship Specialty Start Date End Date Zuleima Ward MD [address] [place] [phone] PCP - General Family Medicine 04/25/20 documented as of this encounter
--- OUTSIDE RECORDS SUMMARY | 2024-05-23 14:04 | XMS_ITS | Encounter Summary ---
Author Organization [employer] Address [address] [facility] 7t [place] [address] Care Team Providers Care Special Agent Secret Service Name Role Phone Zuleima Ward MD Primary Care Provider [phone] Reason for Visit * Reason Comments Med Refill Encounter Details Date Type Department Care Team ([facility] st Contact Info) Description 11/22/2023 Refill [facility] [address] [place] [address] Re Crespo MD [address] [place] [address] Social History Tobacco Use Types Packs/Day Years [...] documented as of this encounter Care Teams Special Agent Secret Service Relationship Specialty Start Date End Date Zuleima Ward MD [address] [place] [address] PCP - General Family Medicine 04/25/20 documented as of this encounter
== END 2024-05-23 11:22 | disposition home or self-care (01) ==
LOC: HO.MAMMO 11:21
DX: Z12.31 Encounter for screening mammogram for malignant neoplasm of breast (principal)
CPT/HCPCS: 77063; 77067

== ENCOUNTER → 2024-05-23 12:00 | Outpatient (BNV) | payer OTHER, SELFPAY | PROVIDERS: Visit Provider Internal Medicine | DX: Z12.31 Encounter for screening mammogram for malignant neoplasm of breast (principal) | CPT/HCPCS: 77063; 77067 ==

== ENCOUNTER 2024-05-24 10:20 | Outpatient (AMB) | payer OTHER, SELFPAY ==
--- NOTE | 2024-05-24 10:32 | HO.NEPHOV ---
Vital Signs 05/24/24 10:37 Height 5 ft 1 in Weight 167 lb 2 oz BMI 31.6 BP 140/90 H Blood Pressure Location Rt brachial Position Sitting Pulse 76 Pulse Source Pulse Oximeter Pulse Oximetry (%) 94 Oxygen Delivery Method Room Air Intake Visit Reasons: Hypertension-LVM Glue Spreading Machine Operator Required: Yes Glue Spreading Machine Operator Language: Structural Steel Ironworker Services: Glue Spreading Machine Operator Offered & Declined ([facility] picker machine operator services refused) Accompanied by: Self / Same As Patient Allergies lisinopril [LISINOPRIL] Allergy (Intermediate, Verified 05/24/24 10:37) ANGIOEDEMA, angioedema? Seafood Allergy (Mild, Uncoded 05/29/22 15:06) DIFFICULTY BREATHING seafood Allergy (Unknown, Uncoded 05/29/22 15:06) throat closes up, stuffy nose seafood; shellfish Allergy (Unknown, Uncoded 05/29/22 15:06) anaphylaxis HPI Comments Details: Ms Lakhani was seen in follow-up of her hypertension and a history of mild CKD in the past. She does not have any headache, visual disturbances, chest pain, shortness of breath, paroxysmal nocturnal dyspnea, orthopnea or pedal edema. Her diet is rich in sodium. She is taking her medications as prescribed . She denies taking excessive nonsteroidal anti-inflammatory medications. She has no blood in the urine. She does not get urinary tract infections.Her renal functions has been at baseline [facility] Medical History (Updated 01/27/23 @ 15:24 by Brock Cramer MD) Hypertension Depression Diabetes Hypothyroidism CKD (chronic kidney disease) HLD (hyperlipidemia) Social History Alcohol intake: never Patient Tobacco Use Status: Never used Tobacco Review of Systems Const All systems reviewed & are unremarkable except as noted in HPI and below Physical Exam Vital Signs: Last Vital Signs Pulse 76 05/24/24 10:37 BP 160/100 H 05/24/24 10:37 Pulse Ox 94 05/24/24 10:37 Oxygen Delivery Method Room Air 05/24/24 10:37 BMI result Body Mass Index 31.6 Const General: comfortable and no acute distress Orientation/consciousness: patient oriented x3 HEENT Head: Yes normocephalic Mouth: Normal oral and palatal mucosa present Eyes EOM: EOMs intact bilaterally Neck Neck: Yes supple Resp Auscultation: clear to auscultation bilaterally Cardio Jugular venous distension: no JVD Rate: regular rate Heart sounds: Murmur heart sound present GI Palpation (GI): Soft to palpation Auscultation: normal bowel sounds Skin General skin exam: no rashes or lesions noted Neuro General: patient oriented x3 and moves all extremities Extrem General: Yes no pedal edema Results Reviewed Nephrology Results: Sodium 140 mmol/L (135-145) 04/26/24 Potassium 4.1 mmol/L (3.3-5.1) 04/26/24 Chloride 107 mmol/L (96-108) 04/26/24 Carbon Dioxide 26 mmol/L (22-29) 04/26/24 BUN 8 mg/dL (9-16) L 04/26/24 Creatinine 0.84 mg/dL (0.5-1.4) 04/26/24 Calcium 8.9 mg/dL (8.4-10.2) 04/26/24 Assessment & Plan Assessment & Plan (1) Hypertension: Code(s): I10 - Essential (primary) hypertension Category: Medical Qualifiers: Hypertension type: primary hypertension Qualified Code(s): I10 - Essential (primary) hypertension Plan Ms Saunders as hypertension for long time. She should continue losartan 100 mg daily. (She has allergy to lisinopril in the past but is tolerating ARB well). She is also taking nifedipine 120 mg daily along with Spironolactone 75 mg daily.( side effects including hyperkalemia needs monitoring- blood work ordered for it- pt aware). She denies taking excessive nonsteroidal anti-inflammatory medications. She is on lipid-lowering agents. She has no coronary artery disease or signs of congestive heart failure. She is not a diabetic. No other medication changes made today. All her questions were answered. Orders: Orders Blood Urea Nitrogen 4 Months I10 - Essential (primary) hypertension Electrolytes 4 Months I10 - Essential (primary) hypertension Creatinine 4 Months I10 - Essential (primary) hypertension Coding Level of Care Code Est Pt Level 4 (81945) Diagnoses Primary hypertension I10 Hypertension type: primary hypertension
[2024-05-24 10:37] VITALS: BP 140/90; PULSE 76; O2SAT 94; BMI 31.6
--- OUTSIDE RECORDS SUMMARY | 2024-05-24 11:52 | XMS_ITS | Encounter Summary ---
Author Organization [employer] Address [address] [facility] 7t [place] [address] Care Team Providers Care Logging Engineer Name Role Phone Zuleima Ward MD Primary Care Provider [phone] Encounter Details Date Type Department Care Team ([facility] st Contact Info) Description 05/19/2024 Telephone [facility] [address] [place] [address] Zuleima Ward MD [address] [place] [address] Social History Tobacco Use Types Packs/Day Years [...] documented as of this encounter Care Teams Logging Engineer Relationship Specialty Start Date End Date Zuleima Ward MD [address] [place] [address] PCP - General Family Medicine 04/25/20 documented as of this encounter
--- OUTSIDE RECORDS SUMMARY | 2024-05-24 11:52 | XMS_ITS | Encounter Summary ---
Author Organization [employer] Address [address] [facility] 7t [place] [address] Care Team Providers Care Hydraulic Plumber Helper Name Role Phone Zuleima Ward MD Primary Care Provider [phone] Reason for Visit * Reason Comments Med Refill Encounter Details Date Type Department Care Team ([facility] st Contact Info) Description 11/22/2023 Refill [facility] [address] [place] [address] Re Crespo MD [address] [place] [address] Social History Tobacco Use Types Packs/Day Years [...] documented as of this encounter Care Teams Hydraulic Plumber Helper Relationship Specialty Start Date End Date Zuleima Ward MD [address] [place] [address] PCP - General Family Medicine 04/25/20 documented as of this encounter
--- OUTSIDE RECORDS SUMMARY | 2024-05-24 11:52 | XMS_ITS | Clinical Summary ---
Author Organization [facility] Address [address] [facility] [address] [place] [address] Phone Care Team Providers Care Stonecutter Name Role Phone Zuleima Ward MD Primary Care Provider [phone] Allergies Active Allergy Reactions Criticality Noted Date [...] [place] [address] Care Teams Stonecutter Relationship Specialty Start Date End Date Zuleima Ward MD PCP - General Lamp Cleaner Street Light 01/03/21
--- OUTSIDE RECORDS SUMMARY | 2024-05-24 11:52 | XMS_ITS | Encounter Summary ---
Author Organization [employer] Address [address] [place] [address] 7 [place] [address] Care Team Providers Care Glass Calibrator Name Role Phone Zuleima Ward MD Primary Care Provider [phone] Reason for Referral * Imaging (Routine) - Closed Specialty Diagnoses / Procedures Referred By Lynne gardner Referred To Contact Radiology Diagnoses Menopausal and postmenopausal disorder Procedures BD DEXA Axial Ani Ramires CNP [address] [place] [address] Phone: tel: fax: [address] Phone: tel: fax: Referral ID Status Reason Start Date Expiration Date Visits Re quested Visits Authorized [id number] Closed 04/26/2024 04/26/2025 1 1 Encounter Details Date Type Department Care Team (Late st Contact Info) Description 04/26/2024 Orders Only [facility] [address] [place], [place] [phone] Ani Ramires CNP [address] [place], [place] [phone] Menopausal and postmenopausal disorder (Primary Dx) Social [...] EST Narrative 05/08/2024 8:55 AM EST ? [facility] ? [address] ?[place] [address] ? Mammography Report ? Signed ? Patient: Lakhani,Danni ?MR#: [id number] ?? [id number] ? : 1955 ?Acct:[id number] ? Age/Sex: 68 / F ?ADM Date: 05/05/24 ? Loc: HO.MAMMO ? Attending Dr: Ani Ramires MEDIA SALES EXECUTIVE ? Ordering Physician: Ani Ramires ?Results: ? Date of Service: 05/05/24 ?Follow Up: ? Procedure(s): XR DEXA axial skeleton ?? Accession Number(s): [id number] ? cc: Ani Ramires ? EXAMINATION: ??DXA BONE DENSITY AXIAL ? HISTORY: ??Estrogen deficiency ? TECHNIQUE: [employer] Dual energy absorptiometry (DEXA) ?? of the [...] is a trademark of the [employer]'s ?? [place] for Metabolic Bone Disease, a World Health Organization (WHO) ?? Collaborating Center. ? Electronically signed by: ??Rudolph Forrester MD ??05/08/2024 08:52 AM EST ?? RP ? Dictated By: ?Rudolph Forrester MD ? Signed By: ?<Electronically signed by Rudolph Forrester MD in OV> ?05/08/24 0852 ? DD/ 1130 ? TD/TT: 05/05/24 1158 ? Client Support Coordinator: ? Procedure Note [place], Image - 05/08/2024 [facility] [address] [place] [address] Mammography Report Signed Patient: Danni LakhaniMR#: [id number] : 6Acct:[id number] Age/Sex: 68 / FADM Date: 05/05/24 Loc: [place] Attending Dr: Ani Ramires MEDIA SALES EXECUTIVE Ordering Physician: Kimber Ramiresults: Date of Service: 05/05/24Follow Up: Procedure(s): XR DEXA axial skeleton Accession Number(s): [id number] cc: Ani Ramires EXAMINATION: DXA BONE DENSITY AXIAL HISTORY: Estrogen deficiency TECHNIQUE: [employer] Dual energy absorptiometry (DEXA) of the lumbar [...] is a trademark of the [employer]'s [place] for Metabolic Bone Disease, a World Health Organization (WHO) Collaborating Center. Electronically signed by: Rudolph Forrester MD 05/08/2024 08:52 AM EST Dictated By: Rudolph Forrester MD Signed By: <Electronically signed by Rudolph Forrester MD in OV> 05/08/24 0852 DD/ 1130 TD/TT: 05/05/24 1158 Client Support Coordinator: Ani Ramires [facility] DXA PROCEDURES Final Result documented in this encounter Visit Diagnoses Diagnosis Menopausal and postmenopausal disorder- Primary Unspecified menopausal and postmenopausal disorder documented in this encounter Additional Health Concerns Assessment Noted Time PHQ-9 Depression Total Score: 1 04/21/19 25 1:50 PM EST documented as of this encounter Care Teams Glass Calibrator Relationship Specialty Start Date End Date Zuleima Ward MD [address] [place] [address] PCP - General Family Medicine 04/25/20 documented as of this encounter
--- OUTSIDE RECORDS SUMMARY | 2024-05-24 11:52 | XMS_ITS | Encounter Summary ---
Author Organization [employer] Address [address] [place] [address] 7t [place] [address] Care Team Providers Care Registered Account Administrator Name Role Phone Zuleima Ward MD Primary Care Provider [phone] Reason for Visit * Reason Onset Date Comments Change PCP 06/07/2023 Encounter Details Date Type Department Care Team ([facility] st Contact Info) Description 06/07/2023 Telephone [facility] [address] [place] [address] Zuleima Ward MD [address] [place] [address] Change PCP Social History Tobacco Use Types [...] 1:59 PM EDT RN called pt via [employer] interpretor #[id number], pt states she would like to change to a Luxembourger speaking provider to help understand her more. mPt is complaining iof bone pain, informed to come to [facility] for evaluation. Pt states understanding. Please sandra change in PCP request Tc from pt requesting a PCP change due to not meeting medical needs. Please contact pt at [phone] (Luxembourger) * Telephone Encounter - Cookie Pedraza - 06/07/2023 11:39 AM EDT Tc from pt requesting a PCP change due to not meeting medical needs. Please contact pt at [phone] (Luxembourger) documented in this encounter Plan of Treatment Not on file documented as of this encounter Visit Diagnoses Not on filedocumented in this encounter Additional Health Concerns Assessment Noted Time PHQ-9 Depression Total Score: 3 05/24/19 24 11:36 AM EDT documented as of this encounter Care Teams Registered Account Administrator Relationship Specialty Start Date End Date Zuleima Ward MD [address] [place] [address] PCP - General Family Medicine 04/25/20 documented as of this encounter
--- OUTSIDE RECORDS SUMMARY | 2024-05-24 11:52 | XMS_ITS | Encounter Summary ---
Author Organization [employer] Address [address] [facility] 7t [place] [address] Care Team Providers Care Flight Communications Specialist Name Role Phone Zuleima Ward MD Primary Care Provider [phone] Encounter Details Date Type Department Care Team (Late st Contact Info) Description 06/09/2023 Orders Only [facility] MEDICINE [address] [place] [address] Zuleima Ward MD [address] [place] [address] Fibromyalgia (Primary Dx) Social History Tobacco Use [...] documented as of this encounter Care Teams Flight Communications Specialist Relationship Specialty Start Date End Date Zuleima Ward MD [address] [place] [address] PCP - General Family Medicine 04/25/20 documented as of this encounter
--- OUTSIDE RECORDS SUMMARY | 2024-05-24 11:52 | XMS_ITS | Encounter Summary ---
Author Organization [employer] [facility] Address [address] [place] [address] 7t [place] [address] Care Team Providers Care Precision Filer Hand Name Role Phone Zuleima Ward MD Primary Care Provider [phone] Encounter Details Date Type Department Care Team (Late st Contact Info) Description 11/18/2022 Orders Only [facility] MED[facility] [address] [place] [address] Provider, MD Jesica Social History Tobacco Use [...] on filedocumented in this encounter Care Teams Precision Filer Hand Relationship Specialty Start Date End Date Zuleima Ward MD [address] [place] [address] PCP - General Family Medicine 04/25/20 documented as of this encounter
--- OUTSIDE RECORDS SUMMARY | 2024-05-24 11:52 | XMS_ITS | Encounter Summary ---
Author Organization [employer] Address [address] [place] [address] 7t [place] [address] Care Team Providers Care Gunner'S Mate G Name Role Phone Zuleima Ward MD Primary Care Provider [phone] Encounter Details Date Type Department Care Team (Late st Contact Info) Description 04/25/2024 Telephone [facility] [address] [place], [place] [phone] Ani Ramires CNP [address] [place] [address] Social History Tobacco Use Types Packs/Day Years [...] 04/25/2024 8:22 AM EST [place] [facility] [place] Density order to be update [...] documented as of this encounter Care Teams Gunner'S Mate G Relationship Specialty Start Date End Date Zuleima Ward MD [address] [place] [address] PCP - General Family Medicine 04/25/20 documented as of this encounter
--- OUTSIDE RECORDS SUMMARY | 2024-05-24 11:52 | XMS_ITS | Clinical Summary ---
Author Organization [employer] Address [address] [facility] 7t [place] [address] Care Team Providers Care Managing Supervisor Name Role Phone Zuleima Ward MD Primary Care Provider [phone] Allergies Active Allergy Reactions Criticality Noted Date [...] 25 mg to 75 mg per her driver service technician's recommendations. Mammo due- orders placed DEXA due- [...] EST): Updated pt med list to reflect driver service technician recommendations. Pt med regimen should be the [...] Department Care Team Description 05/22/[address] [facility] [address] [place] [address] [phone] Mansi Nolasco MD Essential hypertension (Primary Dx) 05/19/[address] [facility] [address] [place] [address] 78111 Zuleima aWrd MD 04/26/[address] [facility] [address] [place] [address] 45755 Ani Ramires CNP Menopausal and postmenopausal disorder (Primary Dx) 04/25/2024 Telephone [facility] [address] [place] [phone] Ani Ramires CNP 04/21/2024 2:15 PM EST Office Visit [address] [address] Ani Ramires CNP Routine health maintenance (Primary Dx); Anxiety; Essential hypertension; Encounter for immunization; At risk for decreased bone density; Hyperlipidemia, unspecified hyperlipidemia type 04/21/2024 Travel 04/19/[address] [facility] [address] [place] [address] 34083 Zuleima Ward MD 04/18/[address] [facility] [address] [place] [address] 07965 Ani Ramires CNP Chart Prep 04/14/[address] [facility] [address] [place], [place] [phone] Zuleima Ward MD Pre-visit Planning ([facility] unable to reach LVM) 04/04/[address] [facility] [address] [place] [address] [phone] Zuleima Ward MD 03/29/[address] [facility] [address] [place] [address] [phone] Zuleima Ward MD call back needed 02/29/[address] [facility] [address] [place] [address] 11303 Zuleima Ward MD from Last 3 Months [...] EST Narrative 05/08/2024 8:55 AM EST ? [facility] [place] ? [address] ?[place] [address] ? Mammography Report ? Signed ? Patient: Lakhani,Danni ?MR#: [id number] ?? [id number] ? : 1955 ?Acct:[id number] ? Age/Sex: 68 / F ?ADM Date: 02/21/25 ? Loc: HO.MAMMO ? Attending Dr: Alexxis Ramires SHELLACKER ? Ordering Physician: Ramires,Alexxis ?Results: ? Date of Service: 02/21/25 ?Follow Up: ? Procedure(s): XR DEXA axial skeleton ?? Accession Number(s): [id number] ? cc: Ramires,Berryxilulu ? EXAMINATION: ??DXA BONE DENSITY AXIAL ? HISTORY: ??Estrogen deficiency ? TECHNIQUE: MakeSpace Dual energy absorptiometry (DEXA) ?? of the [...] the [employer]'s ?? [place] for Metabolic Bone Disease, a World Health Organization (WHO) ?? Collaborating Center. ? Electronically signed by: ??Rudolph Forrester MD ??05/08/2024 08:52 AM EST ?? RP ? Dictated By: ?Rudolph Forrester MD ? Signed By: ?<Electronically signed by Rudolph Forrester MD in OV> ?05/08/24 0852 ? DD/ 1130 ? TD/TT: 05/05/24 1158 ? Field Project Manager: ? Procedure Note Donotuseinterpreter, Image - 05/08/2024 [place] [facility] [address] [place] [address] Mammography Report Signed Patient: Danni LakhaniMR#: [id number] : 6Acct:[id number] Age/Sex: 68 / FADM Date: 05/05/24 Loc: LUCILA Attending Dr: Ani Ramires SHELLACKER Ordering Physician: Kimber Ramiresults: Date of Service: 05/05/24Follow Up: Procedure(s): XR DEXA axial skeleton Accession Number(s): [id number] cc: Ani Ramires EXAMINATION: DXA BONE DENSITY AXIAL HISTORY: Estrogen deficiency TECHNIQUE: MakeSpace Dual energy absorptiometry (DEXA) of the lumbar [...] is a trademark of the [employer]'s [place] [facility] Metabolic Bone Disease, a World Health Organization (WHO) Collaborating Center. Electronically signed by: Rudolph Forrester MD 05/08/2024 08:52 AM EST RP Dictated By: Rudolph Forrester MD Signed By: <Electronically signed by Rudolph Forrester MD in OV> 05/08/24 0852 DD/ 1130 TD/TT: 05/05/24 1158 Field Project Manager: [facility] IMG DXA PROCEDURES Final Result * Hemoglobin A1c (04/26/2024 10:40 AM EST) Hemoglobin A1c 5.6 <6.0 % [facility] Comment:Hemoglobin A1C Refer ence Range Adults: 4.8 - 6.0 % Non diabetic: < 6.0 % Goal: < 7.0 %Additional Action Suggested: > 8.0 %Note: Hemoglobin A1c results are invalid for patients with abnormal amounts of HbF. Blood transfusions may impact the HbA1c concentration in the patient sample. Estimated Average Glucose 114 mg/dL [facility] Comment:eAG = Estimated ave rage glucose which is %A1C expressed asaverage glucose, using the formula of the [id number]-[id number] Glucose study (ADAG), Diabetes Care, Vol.31,#8,Oct. 2007 Blood Venous blood specimen / Unknown 04/26/2024 10:40 AM EST 04/26/2024 1:42 PM EST [facility] LAB BLOOD ORDERABLES Leann mireles Result [facility] [address] [place] [phone] * Hepatic Function Panel (04/26/2024 10:40 AM EST) Bilirubin, Total 0.3 0.0 - 1.0 mg/dL [facility] Bilirubin, Direct 0.1 0.0 - 0.5 mg/dL [facility] Aspartate Amino Transferase 25 5 - 31 U/L [facility] Alanine Aminotransferase 20 0 - 31 U/L [facility] Total Protein 7.9 6.5 - 8.0 g/dL [facility] Albumin Level 4.0 3.5 - 5.0 g/dL [facility] Alkaline Phosphatase 84 39 - 117 U/L [facility] Blood Venous blood specimen / Unknown 04/26/2024 10:40 AM EST 04/26/2024 1:42 PM EST Ani Ramires [facility] BLOOD ORDERABLES Leann l Result [facility] [address] [place] [phone] * (ABNORMAL) Lipid Panel, Standard (04/26/2024 10:40 AM EST) Triglycerides 121 <150 mg/dL [facility] Comment:Desirable Triglyceri de: less than 150 mg/dLBorderline High Triglyceride 150-199 mg/dLHigh Triglyceride: 200-499 mg/dLVery High Triglyceride: greater than or equal to 5OO mg/dL Cholesterol 186 <200 mg/dL [facility] Comment:Desirable Cholestero l: less than 200 mg/dLBorderline High Cholesterol: 200-239 mg/dLHigh Cholesterol: greater than 239 mg/dL LDL Cholesterol Calculated 119(H) <100 mg/dL [facility] Comment:Desirable LDL: less than 100 mg/dLNear Optimal/Above Optimal LDL: 110- 129 mg/dLBorderline High LDL: 130-159 mg/dLHigh LDL: 160-189 mg/dLVery High LDL: greater than or equal to 190 mg/dL HDL Cholesterol 43 >40 mg/dL [facility] Comment:Desirable HDL: great er than 40 mg/dL Note: This HDL assay may give artificially low results in patients with liver disease. Blood Venous blood specimen / Unknown 04/26/2024 10:40 AM EST 04/26/2024 1:42 PM EST [facility] LAB BLOOD ORDERABLES Leann l Result Performing Organization Address City/[facility] Co de Phone Number [facility] [address] [place] [address] [phone] * (ABNORMAL) Basic Metabolic Panel (04/26/2024 10:40 AM EST) Sodium 140 135 - 145 mmol/L [facility] Potassium 4.1 3.3 - 5.1 mmol/L [facility] Chloride 107 96 - 108 mmol/L [facility] Carbon Dioxide 26 22 - 29 mmol/L [facility] Anion Gap 11(L) 12 - 20 [facility] Urea Nitrogen (BUN) 8(L) 9 - 16 mg/dL [facility] Creatinine, Serum 0.84 0.5 - 1.4 mg/dL [facility] Estimated Glomerular Filt Rate >60 [facility] Comment:Chronic Kidney Disea se: Estimated GFR < 60 mL/min/1.33d2Kkcmkj Kidney Disease: Estimated GFR < 15 mL/min/1.73m2 Glucose 101 60 - 115 mg/dL [facility] Calcium 8.9 8.4 - 10.2 mg/dL [facility] Blood Venous blood specimen / Unknown 04/26/2024 10:40 AM EST 04/26/2024 1:42 PM EST [facility] LAB BLOOD ORDERABLES Leann l Result Performing Organization Address City/[facility]/ZIP Co de Phone Number [facility] [address] [place] [phone] [phone] * BI Mammogram Screening Tomosynthesis Bilateral (08/21/2022 12:55 PM EDT) Anatomical Region Laterality Modality Breast Bilateral Mammography 08/21/2022 12:5 5 PM EDT Narrative 08/24/2022 8:37 AM EDT ? [facility] ? [address] ?[place] [address] ? Mammography Report ? Signed ? Patient: Lakhani,Danni ?MR#: [id number] ?? [id number] ? : 1955 ?Acct:[id number] ? Age/Sex: 66 / F ?ADM Date: 08/21/22 ? Loc: HO.MAMMO ? Attending Dr: Zuleima Ward MD ? Ordering Physician: Zuleima Ward ?Results: 2Benign F ?? indings ? Date of Service: 08/21/22 ?Follow Up: 1 Year From Orig ?? inal Mammogram ? Procedure(s): MM tomosynthesis screening BI ?? Accession Number(s): [id number] ? cc: Zlueima Ward ? EXAMINATION: ?? MM SCREENING DIGITAL [...] 0834 ? DD/ 1255 ? TD/TT: ? Field Project Manager: GONSALES ? Procedure Note Garfield, Brian - 09/10/2022 [facility] [address] [place] [address] Mammography Report Signed Patient: Danni LakhaniMR#: [id number] : 6Acct:[id number] Age/Sex: 66 / FADM Date: 08/21/22 Loc: LUCILA Attending Dr: Zuleima Ward MD Ordering Physician: Misael Wardults: 2Benign F indings Date of Service: 08/21/22Follow Up: 1 Year From Orig inal Mammogram Procedure(s): MM tomosynthesis screening BI Accession Number(s): [id number] cc: Zuleima Ward EXAMINATION: MM SCREENING DIGITAL [...] in OV> 08/24/22 0834 DD/ 1255 TD/TT: Field Project Manager: [facility] External Provider IMG BI PROCEDURES Final Result * Hm Colonoscopy (09/03/2017) Historical Provider HEALTH MAINTENANCE Final Result from Last 3 Months or Most Recently Relevant to Health Maintenance Insurance [facility] STANDARD [employer] PPO [place] Care Teams Managing Supervisor Relationship Specialty Start Date End Date Zuleima Ward MD [address] [place] [phone] PCP - General Family Medicine 04/25/20
--- OUTSIDE RECORDS SUMMARY | 2024-05-24 11:52 | XMS_ITS | Encounter Summary ---
Author Organization [employer] Address [address] [facility] 7t [place] [address] Care Team Providers Care Granulator Tender Name Role Phone Zlueima Ward MD Primary Care Provider [phone] Encounter Details Date Type Department Care Team ([facility] st Contact Info) Description 12/15/2023 Orders Only [facility] [address] [place] [address] Zuleima Ward MD [address] [place] [address] Social History Tobacco Use Types Packs/Day Years [...] documented as of this encounter Care Teams Granulator Tender Relationship Specialty Start Date End Date Zuleima Ward MD [address] [place] [phone] PCP - General Family Medicine 04/25/20 documented as of this encounter
--- OUTSIDE RECORDS SUMMARY | 2024-05-24 11:52 | XMS_ITS | Encounter Summary ---
Author Organization [employer] [facility] Address [address] [facility] 7t [place] [address] Care Team Providers Care Client Relationship Executive Name Role Phone Zuleima Ward MD Primary Care Provider [phone] Reason for Referral * Consultation (Routine) - Authorized Specialty Diagnoses / Procedures Referred By Lynne gardner Referred To Contact Pharmacy Diagnoses Essential hypertension Mansi Nolasco MD [address] [place] [address] Phone: tel: fax: Referral ID Status Reason Start Date Expiration Date Visits Requested Visits Authorized [id number] Authorized Consult and Treat 05/22/2024 05/22/2025 6 6 Encounter Details Date Type Department Care Team (Late st Contact Info) Description 05/22/2024 Orders Only [facility] [address] [place], [place] [phone] Mansi Nolasco MD [address] [place], [place] [phone] Essential hypertension (Primary Dx) Social History Tobacco [...] documented as of this encounter Care Teams Client Relationship Executive Relationship Specialty Start Date End Date Zuleima Ward MD [address] [place] [address] PCP - General Family Medicine 04/25/20 documented as of this encounter
== END 2024-05-24 10:54 | disposition home or self-care (01) ==
LOC: HO.HKA 10:21
PROVIDERS: PCP General Practice; Visit Provider Internal Medicine Nephrology
DX: I10 Essential (primary) hypertension (principal)
CPT/HCPCS: 99214

== ENCOUNTER → 2024-05-24 10:20 | Outpatient (BNVA) | payer OTHER, SELFPAY | PROVIDERS: PCP General Practice; Visit Provider Internal Medicine Nephrology | DX: I10 Essential (primary) hypertension (principal) | CPT/HCPCS: 99212 ==

== ENCOUNTER 2024-08-10 11:15 | Outpatient (REF) | payer OTHER, SELFPAY ==
--- OUTSIDE RECORDS SUMMARY | 2024-08-10 11:40 | XMS_ITS | Encounter Summary ---
Author Organization [employer] Address [address] [facility] 7t [place] [address] Care Team Providers Care Red Hat Linux Administrator Name Role Phone Ani Ramires CNP Primary Care Provider [phone] Katharine Cta PharmD Unavailable Encounter Details Date Type Department Care Team (Latest Contact Info) Description 08/10/2024 Travel Social History Tobacco Use Types Packs/Day [...] as of this encounter Plan of Treatment Upcoming Encounters Date Type Department Care Team (Late st Contact Info) Description 09/07/2024 10:30 AM EDT Medication Management [facility] [address] [place] [address] Katharine Cat PharmD [address] [place] [address] documented as of this encounter Visit Diagnoses Not on filedocumented in this encounter Additional Health Concerns Assessment Noted Time PHQ-9 Depression Total Score: 1 04/21/19 25 1:50 PM EST documented as of this encounter Care Teams Red Hat Linux Administrator Relationship Specialty Start Date End Date Ani Ramires CNP [address] [place] [address] PCP - General Family Medicine 06/05/24 Katharine Cat PharmD [address] [place] [address] [phone] Pharmacist Internal Medicine 06/26/24 documented as of this encounter
[2024-08-10 13:53] LABS: Anion Gap 11 (12-20); Blood Urea Nitrogen 10 mg/dL (9-16); Calcium 9.7 mg/dL (8.4-10.2); Carbon Dioxide 28 mmol/L (22-29); Chloride 103 mmol/L (96-108); Estimated Glomerular Filt Rate 58; Glucose Random 134 mg/dL (60-115); Potassium 3.8 mmol/L (3.3-5.1); Sodium 138 mmol/L (135-145)
[2024-08-10 14:22] LABS: Vitamin B12 411 pg/mL (200-900)
== END 2024-08-10 11:16 | disposition home or self-care (01) ==
LOC: HO.HHCL 11:15
PROVIDERS: Internal Medicine Nephrology
DX: I10 Essential (primary) hypertension (principal); E78.5 Hyperlipidemia, unspecified; E53.8 Deficiency of other specified B group vitamins
CPT/HCPCS: 36415; 80048; 82607

== ENCOUNTER 2024-09-20 10:15 | Outpatient (REF) | payer OTHER, SELFPAY ==
--- OUTSIDE RECORDS SUMMARY | 2024-09-20 11:01 | XMS_ITS | Encounter Summary ---
Author Organization [employer] Address [address] [place] [address] 7t [place] [address] Care Team Providers Care Roll Up Operator Name Role Phone Ani Ramires CNP Primary Care Provider [phone] Katharine Cat PharmD Unavailable [phone] Reason for Visit * Reason Comments Med Refill Encounter Details Date Type Department Care Team ([facility] st Contact Info) Description 09/14/2024 Refill [facility] [address] [place] [address] Hawa Chang FNP [address] [place] [address] Social History Tobacco Use Types Packs/Day Years [...] Care Team (Late st Contact Info) Description 09/27/2024 2:30 PM EDT Medication Management [facility] [address] [place] [phone] Katharine Cat PharmD [address] [place] [phone] 10/04/2024 10:45 AM EDT Office Visit [facility] [address] [place] [address] Ani Ramires CNP [address] [place] [phone] documented as of this encounter Visit Diagnoses Not on filedocumented in this encounter Additional Health Concerns Assessment Noted Time PHQ-9 Depression Total Score: 1 04/21/19 25 1:50 PM EST documented as of this encounter Care Teams Roll Up Operator Relationship Specialty Start Date End Date Ani Ramires CNP [address] [place] [phone] PCP - General Family Medicine 06/05/24 Katharine Cat, PharmD [address] [place] [phone] Pharmacist Internal Medicine 06/26/24 documented as of this encounter
--- OUTSIDE RECORDS SUMMARY | 2024-09-20 11:01 | XMS_ITS | Clinical Summary ---
Author Organization [facility] Address [address] [place] [phone] Phone Care Team Providers Care Roofing Applicator Name Role Phone Zuleima Ward MD Primary [...] Comments Breast Cancer Screening 1955 Pneumococcal Vaccine: 50+ Ye ars (1 of 2 - PCV) 11/23/1974 Colorectal Cancer Screening: Annual FOBT 11/23/2004 Colorectal Cancer Screening: Colonoscopy 11/23/2004 Colorectal Cancer Screening: Sigmoidoscopy 11/23/2004 Influenza Vaccine (#1) 2024 Hepatitis B Vaccine Aged Out No longe r eligible based on patient's age to complete this topic Insurance [place] [id number] Care Teams Roofing Applicator Relationship Specialty Start Date End Date Zuleima Ward MD PCP - General Quality Reviewer 01/03/21
[2024-09-20 12:37] LABS: Alanine Aminotransferase 16 U/L (0-31); Albumin Level 4.4 g/dL (3.5-5.0); Alkaline Phosphatase 71 U/L (39-117); Anion Gap 12 (12-20); Aspartate Amino Transferase 25 U/L (5-31); Blood Urea Nitrogen 10 mg/dL (9-16); Carbon Dioxide 25 mmol/L (22-29); Chloride 105 mmol/L (96-108); Cholesterol 127 mg/dL (<200); Estimated Glomerular Filt Rate 55; HDL Cholesterol 49 mg/dL (>40); Potassium 4.2 mmol/L (3.3-5.1); Sodium 138 mmol/L (135-145); Total Protein 7.6 g/dL (6.5-8.0); Triglycerides 84 mg/dL (<150)
== END 2024-09-20 10:16 | disposition home or self-care (01) ==
LOC: HO.HHCL 10:15
PROVIDERS: Referring Provider Internal Medicine Nephrology
DX: I10 Essential (primary) hypertension (principal); E78.5 Hyperlipidemia, unspecified
CPT/HCPCS: 36415; 80051; 80061; 80076; 82565; 84520

== ENCOUNTER 2024-09-27 14:52 | Outpatient (REF) | payer OTHER, SELFPAY ==
--- OUTSIDE RECORDS SUMMARY | 2024-09-27 15:24 | XMS_ITS | Clinical Summary ---
Author Organization [facility] Address [address] [place] [phone] Phone Care Team Providers Care Paper Deliverer Name Role Phone Zuleima Ward MD Primary [...] [place] [id number] Care Teams Paper Deliverer Relationship Specialty Start Date End Date Zuleima Ward MD PCP - General It Teacher 01/03/21
--- OUTSIDE RECORDS SUMMARY | 2024-09-27 15:24 | XMS_ITS | Encounter Summary ---
Author Organization [employer] [facility] Address [address] [place] [address] 7 [place] [address] Care Team Providers Care Tool Rental Technician Name Role Phone Zuleima Ward MD Primary Care Provider [phone] Ani Ramires CNP Primary Care Provider [phone] Katharine Cat PharmD Unavailable [phone] Encounter Details Date Type Department Care Team (Late st Contact Info) Description 11/18/2022 Orders Only [facility] [address] [place] [address] [phone] Provider, MD Jesica Social History Tobacco Use [...] Care Team (Late st Contact Info) Description 10/04/2024 10:45 AM EDT Office Visit [facility] [address] [place] [address] [phone] Ani Ramires CNP [address] [place] [address] 12/29/2024 11:30 AM EDT Medication Management [facility] [address] [place] [address] [phone] Katharine Cat PharmD [address] [place] [address] documented as of this encounter Procedures Procedure Name Priority Date/Time Associated Diagnosis Comments COLONOSCOPY Routine 09/03/2017 documented in this encounter Results * Colonoscopy (09/03/2017) us Historical Provider HEALTH MAINTENANCE Final Result documented in this encounter Visit Diagnoses Not on filedocumented in this encounter Care Teams Tool Rental Technician Relationship Specialty Start Date End Date Zuleima Ward MD [address] [place], [place] [phone] PCP - General Family Medicine 04/25/20 06/04/24 Ani Ramires CNP [address] [place], [place] [phone] PCP - General Family Medicine 06/05/24 Katharine Cat, Jaqueline [address] [place] [address] Pharmacist Internal Medicine 06/26/24 documented as of this encounter
[2024-09-27 16:39] LABS: Blood Urea Nitrogen 8 mg/dL (9-16)
[2024-09-27 16:44] LABS: Microalbum/Creatinine Ratio Ur 5.9 ug/mg cr (<30)
== END 2024-09-27 14:53 | disposition home or self-care (01) ==
LOC: HO.HHCL 14:52
PROVIDERS: Internal Medicine Nephrology
DX: I10 Essential (primary) hypertension (principal); N18.31 Chronic kidney disease, stage 3a
CPT/HCPCS: 36415; 82043; 82570; 84520

== ENCOUNTER 2024-10-04 11:45 | Outpatient (REF) | payer OTHER, SELFPAY ==
--- OUTSIDE RECORDS SUMMARY | 2024-10-04 10:45 | XMS_ITS | Encounter Summary ---
Author Organization [employer] [facility] Address [address] [place] [address] 7 [place] [address] Care Team Providers Care Rn Clinical Quality Name Role Phone Ani Ramires CNP Primary Care Provider [phone] Katharine Cat PharmD Unavailable [phone] Reason for Referral * (Routine) - Pending Review Specialty Diagnoses / Procedures Referred By Lynne gardner Referred To Contact Diagnoses Chest pain on exertion Abnormal ECG Procedures Stress test with myocardial perfusion Ani Ramires CNP [address] [place] [address] Phone: tel: fax: Referral ID Status Reason Start Date Expiration Date V isits Requested Visits Authorized [id number] Pending Review 10/04/2024 10/04/2025 3 3 * Consultation (Routine) - Pending Review Specialty Diagnoses / Procedures Referred By Lynne gardner Referred To Contact Cardiology Diagnoses Chest pain on exertion Abnormal ECG Ani Ramires CNP [address] [place] [address] Phone: tel: fax: Referral ID Status Reason Start Date Expiration Date Visits Requested Visits Authorized [id number] Pending Review Specialty Services Required 10/04/2024 10/04/2025 1 1 * Imaging (Routine) - Pending Review Specialty Diagnoses / Procedures Referred By Lynne t Referred To Contact Cardiology Diagnoses Chest pain on exertion Abnormal ECG Procedures Transthoracic Echo (TTE) Complete Ani Ramires CNP [address] [place] [address] Phone: tel: fax: Referral ID Status Reason Start Date Expiration Date Visits Requested Visits Authorized [id number] Pending Review Perform Procedure 10/04/2024 10/04/2025 1 1 * Imaging (Routine) - Authorized Specialty Diagnoses / Procedures Referred By Contniya t Referred To Contact Radiology Diagnoses Osteoporosis, unspecified osteoporosis type, unspecified pathological fracture presence Procedures BD DEXA Axial Ani Ramires CNP [address] [place] [address] Phone: tel: fax: [address] Phone: tel: fax: Referral ID Status Reason Start Date Expiration Date V isits Requested Visits Authorized [id number] Authorized 10/04/2024 10/04/2025 1 1 Encounter Details Date Type Department Care Team (Late st Contact Info) Description 10/04/2024 10:45 AM EDT Office Visit [facility] [address] [place] [phone] Ani Ramires CNP [address] [place] [address] Osteoporosis, unspecified osteoporosis type, unspecified pathological fracture presence (Primary Dx); Chest pain on exertion; Abnormal ECG Social History Tobacco Use Types Packs/Day Years [...] Sign Reading Time Taken Comments Blood Pressure 120/90 10/04/2024 11:00 AM EDT Pulse 82 10/04/2024 11:00 AM EDT Temperature 36 C (96.8 F) 10/04/2024 11:00 AM EDT Respiratory Rate 17 10/04/2024 11:00 AM EDT Oxygen Saturation 98% 10/04/2024 11:00 AM EDT Inhaled Oxygen Concentration - - Weight 73 kg (161 lb) 10/04/2024 11:00 AM EDT Height 157.5 cm (5' 2 ) 10/04/2024 11:00 AM EDT Body Mass Index 29.45 10/04/2024 11:00 AM EDT documented in this encounter Functional Status * Over the last 2 weeks, how often have you been bothered by any of the following problems? Question Answer Date of Assessment Author Feeling nervous, anxious, or on edge 3 10/04/2024 11:02 AM Jing Timmons [place] Not being able to stop or control worrying 1 10/04/2024 11:02 AM Jing Timmons [place] Worrying too much about different things 3 10/04/2024 11:02 AM Jing Timmons [place] Trouble relaxing 3 10/04/2024 11:02 AM EDT Alexa Pedraza MA Being so restless that it is hard to sit still 1 10/04/2024 11:02 AM EDT Jing Pedraza MA Becoming easily annoyed or irritable 0 10/04/2024 11:02 AM EDT Jing Pedraza MA Feeling afraid as if somethi ng awful might happen 0 10/04/2024 11:02 AM Jing Timmons MA JOSE-7 Total Score 11 10/04/2024 11:02 AM Alexa Timmons [place] documented as of this encounter Plan of Treatment Upcoming Encounters Date Type Department Care Team (Late st Contact Info) Description 12/29/2024 11:30 AM EDT Medication Management [facility] [address] [place] [address] Katharine Cat, PharmD [address] [place] [address] Scheduled Orders Name Type Priority Associated Diagnoses Orde r Schedule Vitamin D, 25-Hydroxy, Total, Immunoassay Lab Routine Osteoporosis, unspecified osteoporosis type, unspecified pathological fracture presence Expected: 10/04/2024 (Approximate), Expires: 10/03/2025 Calcium Lab Routine Osteoporosis, unspecified osteoporosis type, unspecified pathological fracture presence Expected: 10/04/2024 (Approximate), Expires: 10/03/2025 BD DEXA Axial Imaging Routine Osteoporosis, unspecified osteoporosis type, unspecified pathological fracture presence Expected: 10/04/2025, Expires: 10/04/2025 Transthoracic Echo (TTE) Complete Echocardiography Routine Chest pain on exertion Abnormal ECG Expected: 10/04/2024 (Approximate), Expires: 10/04/2026 Scheduled Referrals Name Type Priority Associated Diagnoses Order Schedule Referral to Cardiology Outpatient Referral Routine Chest pain on exertion Abnormal ECG Expected: 10/04/2024 (Approximate), Expires: 10/04/2025 documented as of this encounter Procedures Procedure Name Priority Date/Time Associated Diagnosis Comments ECG 12-LEAD Routine 10/04/2024 11:46 AM EDT Chest pain on exertion documented in this encounter Results * ECG 12 lead (10/04/2024 11:46 AM EDT) Narrative Ani Ramires CNP - 10/04/2024 11:46 AM EDT EKG 75bpm, NSR, p wave progression slow Ani Ramires CNP ECG ORDERABLES Final Res ult documented in this encounter Visit Diagnoses Diagnosis Osteoporosis, unspecified osteoporosis type, unspecified pathological fracture presence- Primary Chest pain on exertion Unspecified chest pain Abnormal ECG Nonspecific abnormal electrocardiogram (ECG) (EKG) documented in this encounter Additional Health Concerns Assessment Noted Time PHQ-9 Depression Total Score: 1 04/21/19 25 1:50 PM EST documented as of this encounter Care Teams Rn Clinical Quality Relationship Specialty Start Date End Date Ani Ramires CNP [address] [place] [address] PCP - General Family Medicine 06/05/24 Katharine Cat PharmD [address] [place] [address] Pharmacist Internal Medicine 06/26/24 documented as of this encounter
--- OUTSIDE RECORDS SUMMARY | 2024-10-04 12:36 | XMS_ITS | Clinical Summary ---
Author Organization [facility] Address [address] [place] [address] Phone Care Team Providers Care Dipper Clock And Watch Hands Name Role Phone Zuleima Ward MD Primary Care Provider [phone] Allergies Active Allergy Reactions Criticality Noted Date [...] [place] [address] Care Teams Dipper Clock And Watch Hands Relationship Specialty Start Date End Date Zuleima Ward MD PCP - General Trailer Rental Clerk 01/03/21
[2024-10-04 13:50] LABS: Blood Urea Nitrogen 13 mg/dL (9-16); Calcium 9.7 mg/dL (8.4-10.2)
== END 2024-10-04 11:46 | disposition home or self-care (01) ==
LOC: HO.HHCL 11:45
PROVIDERS: Internal Medicine Nephrology
DX: I10 Essential (primary) hypertension (principal); M81.0 Age-related osteoporosis without current pathological fracture
CPT/HCPCS: 36415; 82306; 82310; 84520

== ENCOUNTER 2024-10-11 14:03 | Outpatient (AMB) | payer OTHER, SELFPAY ==
--- NOTE | 2024-10-11 14:05 | HO.NEPHOV_ITS ---
Vital Signs 10/11/24 14:25 Height 5 ft 1 in Weight 162 lb 8 oz BMI 30.7 BP 110/70 Blood Pressure Location Rt brachial Position Sitting Pulse 78 Pulse Source Pulse Oximeter Pulse Oximetry (%) 98 Oxygen Delivery Method Room Air Intake Visit Reasons: 4 MO FU-Conf Entry Level Business Analyst Required: Yes Entry Level Business Analyst Language: Career Consultant Services: Entry Level Business Analyst Present Entry Level Business Analyst Name: Nathan [id number] Information Interpreted: clinical only Accompanied by: Self / Same As Patient Allergies lisinopril (LISINOPRIL) Allergy (Intermediate, Verified 10/11/24 14:25) ANGIOEDEMA, angioedema? Seafood Allergy (Mild, Uncoded 05/29/22 15:06) DIFFICULTY BREATHING seafood Allergy (Unknown, Uncoded 05/29/22 15:06) throat closes up, stuffy nose seafood; shellfish Allergy (Unknown, Uncoded 05/29/22 15:06) anaphylaxis HPI Comments Details: Ms Lakhani is here for follow-up of her hypertension and a history of mild CKD in the past. She does not have any headache, visual disturbances, chest pain, shortness of breath, paroxysmal nocturnal dyspnea, orthopnea or pedal edema. Her diet was rich in sodium, but she has cut way back on salt since her last appt with Dr Cramer. She is taking her medications as prescribed. She denies taking excessive nonsteroidal anti-inflammatory medications. She has no blood in the urine. She does not get urinary tract infections. Her renal functions has been at baseline. She has also intentionally lost 5lbs since her last appt with healthy diet. [facility] Medical History (Updated 01/27/23 @ 15:24 by Brock Cramer MD) Hypertension Depression Diabetes Hypothyroidism CKD (chronic kidney disease) HLD (hyperlipidemia) Social History Alcohol intake: never Patient Tobacco Use Status: Never used Tobacco Review of Systems Const All systems reviewed & are unremarkable except as noted in HPI and below Physical Exam Vital Signs: Last Vital Signs Pulse 78 10/11/24 14:25 BP 110/70 10/11/24 14:25 Pulse Ox 98 10/11/24 14:25 Oxygen Delivery Method Room Air 10/11/24 14:25 BMI result Body Mass Index 30.7 Const General: comfortable and awake Resp Effort & Inspection: normal respiratory effort and able to speak in complete sentences Auscultation: clear to auscultation bilaterally Cardio Rate: regular rate Rhythm: regular rhythm Heart sounds: S1 normal heart sound present and S2 normal heart sound present GI Palpation (GI): Soft to palpation and nontender General: Yes no CVA tenderness Back/Spine/Pelvis Back: no CVA tenderness Skin Rashes: no rashes Extrem General: No edema Results Reviewed Nephrology Results: Sodium, (135-145) 138 mmol/L 09/20/24 Potassium, (3.3-5.1) 4.2 mmol/L 09/20/24 Chloride, (96-108) 105 mmol/L 09/20/24 Carbon Dioxide, (22-29) 25 mmol/L 09/20/24 BUN, (9-16) 13 mg/dL 10/04/24 Creatinine, (0.5-1.4) 1.00 mg/dL 09/20/24 Calcium, (8.4-10.2) 9.7 mg/dL 10/04/24 Urine Creatinine 134.39 mg/dL 09/27/24 Assessment & Plan Assessment & Plan (1) Hypertension: Code(s): I10 - Essential (primary) hypertension Category: Medical Qualifiers: Hypertension type: primary hypertension Qualified Code(s): I10 - Essential (primary) hypertension Plan Ms Saunders as hypertension for long time which is better controlled now with lifestyle changes in combination with antihypertensive medcations- losartan 100mg daily (allergy to lisinopril but tolerating ARB well), nifedipine 120mg daily, spironolactone 75mg daily. Renal function is at baseline and potassium is normal at 4.2. She was advised to continue to avoid NSAIDs, and encouraged to continue with healthy lifestyle habits. She is on lipid-lowering agents. She has no known coronary artery disease or signs of congestive heart failure. She is not a diabetic. No other medication changes made today. All her questions were answered. She will follow up in 3 months. Coding Level of Care Code Est Pt Level 4 (90181) Diagnoses Primary hypertension I10 Hypertension type: primary hypertension
[2024-10-11 14:25] VITALS: BP 110/70; PULSE 78; O2SAT 98; BMI 30.7
--- OUTSIDE RECORDS SUMMARY | 2024-10-11 14:45 | XMS_ITS | Encounter Summary ---
Author Organization [employer] [facility] Address [address] [place] [address] 7 [place] [address] Care Team Providers Care Kaiawhina Name Role Phone Zuleima Ward MD Primary Care Provider [phone] Ani Ramires CNP Primary Care Provider [phone] Katharine Cat PharmD Unavailable [phone] Encounter Details Date Type Department Care Team (Late st Contact Info) Description 11/18/2022 Orders Only [facility] [address] [place] [address] [phone] Provider, MD Jesica Social History Tobacco Use [...] Description 12/29/2024 11:30 AM EDT Medication Management [facility] [address] [place] [address] [phone] Katharine Cat, PharmD [address] [place], [place] [phone] documented as of this encounter Procedures Procedure Name Priority Date/Time Associated Diagnosis Comments HM COLONOSCOPY Routine 09/03/2017 documented in this encounter Results * Hm Colonoscopy (09/03/2017) us Historical Provider HEALTH MAINTENANCE Final Result documented in this encounter Visit Diagnoses Not on filedocumented in this encounter Care Teams Kaiawhina Relationship Specialty Start Date End Date Zuleima Ward MD [address] [place], [place] [phone] PCP - General Family Medicine 04/25/20 06/04/24 Ani Ramires CNP [address] [place], [place] [phone] PCP - General Family Medicine 06/05/24 Katharine Cat PharmD [address] [place] [address] [phone] Pharmacist Internal Medicine 06/26/24 documented as of this encounter
--- OUTSIDE RECORDS SUMMARY | 2024-10-11 14:45 | XMS_ITS | Clinical Summary ---
Author Organization [facility] Address [address] [place] [address] Phone Care Team Providers Care Boilerhouse Mechanic Name Role Phone Zuleima Ward MD Primary [...] Medicare [place] [address] Care Teams Boilerhouse Mechanic Relationship Specialty Start Date End Date Zuleima Ward MD PCP - General Kiln Car Unloader 01/03/21
== END 2024-10-11 14:35 | disposition home or self-care (01) ==
PROVIDERS: PCP General Practice; Visit Provider Internal Medicine Nephrology
DX: I10 Essential (primary) hypertension (principal)
CPT/HCPCS: 99214

== ENCOUNTER → 2024-10-11 14:03 | Outpatient (BNVA) | payer OTHER, SELFPAY | PROVIDERS: PCP General Practice; Visit Provider Internal Medicine Nephrology | DX: I10 Essential (primary) hypertension (principal) | CPT/HCPCS: 99212 ==

== ENCOUNTER → 2024-12-04 08:16 | Outpatient (REF) | payer OTHER, SELFPAY ==
--- NOTE | ~2024-12-04 | NM_ITS ---
Lexiscan Myocardial perfusion study Indication: Chest pain on exertion to evaluate for myocardial ischemia Technique: The patient was brought in for a Lexiscan perfusion study on 12/04/2024 and was injected 0.4 mg of Lexiscan intravenously. Within a minute of this injection 25 mCi of sestamibi was given intravenously. Images were obtained using the SPECT gamma camera interlaced with the gating device. Images were obtained in supine position. Resting perfusion study was performed on 12/05/2024. Patient was administered 25 mCi of sestamibi intravenously at rest. Images were then obtained in supine position. Images obtained without without CT attenuation. Total DLP 97 mGy-cm. Images were processed with the software and compared side to side in short axis, horizontal long axis and vertical long axis views. Findings: The stress perfusion study showed both attenuated as well as nonattenuated corrected images show mildly reduced uptake in the distal lateral wall of the LV myocardium. Remainder of the LV myocardium is normally perfused. The gated study shows normal LV systolic function with calculated LVEF of 63%. LV cavity is normal in size. The gated study shows normal systolic wall thickening and contraction of segments. Resting study shows normal uptake of radiotracer in all segments of the LV myocardium. Gating at rest reveals normal systolic wall motion with ejection fraction at 68%. The findings are consistent with small area of mild intensity distal lateral wall ischemia. NM/NM cardiolite stress test Impression: 1. Myocardial perfusion imaging study shows small area of mild intensity distal lateral wall ischemia in branch vessel distribution 2. Gated LVEF is 63% 3. Transient ischemic dilatation not present Nondiagnostic changes on EKG. Electronically signed by: Willard Jackson MD 12/05/2024 04:10 PM EDT
--- NOTE | 2024-12-04 08:25 | CA_ITS ---
Acquisition Time: 2024-12-04 08:59:36 Total Exercise Time: 00:02:19 Test Indications: abn ekg Medications: see h&p Protocol: JARRETT Max HR: 129 BPM 85% of Pred: 151 BPM Max BP: 140/76 mmHG Max Work Load: 4.6 METS Exercise stress test with exercise 2 mins 19 secs of Jarrett Protocol, achieving 82% MPHR, requesting to stop due to knee discomfort, no CP, no EKG changes at achieved workload. Test switched to Lexiscan. Pharmacological stress test with Lexiscan., with reports of 3/10 mid chest discomfort and SOB, without any arrythmias, with normotensive repsonse to injection. Borderline ST- T wave changes in recovery; nondiagnostic for ischemia. In recovery, pt treated with IVP Aminophylline 75 mg to reverse Lexiscan after which pt feeling back to baseline. Nuclear images pending. Test reviewd with Dr. Rodriguez. Referred By: Ani Ramires Electronically Signed By: Yaw Contreras
--- OUTSIDE RECORDS SUMMARY | 2024-12-04 09:22 | XMS_ITS | Clinical Summary ---
Author Organization [facility] Address [address] [place] [address] Phone Care Team Providers Care Revenue Field Auditor Name Role Phone Zuleima Ward MD [...] Medicare [place] [id number] Care Teams Revenue Field Auditor Relationship Specialty Start Date End Date Zuleima Ward MD PCP - General Welding Machine Operator Thermit 01/03/21
== END ==
LOC: HO.CARD 08:16
DX: R07.9 Chest pain, unspecified (principal); R94.31 Abnormal electrocardiogram [ECG] [EKG]
CPT/HCPCS: 78452; 93017; A9500; J0280; J2785

== ENCOUNTER → 2024-12-04 08:25 | Outpatient (BNV) | payer OTHER, SELFPAY | DX: I25.5 Ischemic cardiomyopathy (principal) | CPT/HCPCS: 78452; 93016; 93018 ==

== ENCOUNTER 2024-12-21 11:11 | Outpatient (REF) | payer OTHER, SELFPAY | END 2024-12-21 11:12 | disposition home or self-care (01) | LOC: HO.HHCL 11:11 | PROVIDERS: Visit Provider Internal Medicine Nephrology | DX: Z13.89 Encounter for screening for other disorder (principal) ==

== ENCOUNTER 2024-12-27 09:00 | Outpatient (AMB) | payer OTHER, SELFPAY ==
[2024-12-27 09:04] VITALS: BP 118/76; PULSE 68; O2SAT 99; BMI 30.4
--- NOTE | 2024-12-27 09:04 | MHC.OFFVIS ---
Vital Signs 12/27/24 09:04 Height 5 ft 1 in Weight 161 lb BMI 30.4 BP 118/76 Blood Pressure Location Lt brachial Position Sitting Pulse 68 Pulse Oximetry (%) 99 Oxygen Delivery Method Room Air Intake Visit Reasons: colo screening Intake Note: Patient new consult for 2nd pre Colonoscopy screening. 1st Colonoscopy was at [facility] [place] 10 yrs ago. Patient denies any GI issues. Police Academy Instructor Required: Yes Police Academy Instructor Name: Gabe [id number] Accompanied by: Self / Same As Patient Allergies lisinopril (LISINOPRIL) Allergy (Intermediate, Verified 12/27/24 09:03) ANGIOEDEMA, angioedema? Seafood Allergy (Mild, Uncoded 05/29/22 15:06) DIFFICULTY BREATHING seafood Allergy (Unknown, Uncoded 05/29/22 15:06) throat closes up, stuffy nose seafood; shellfish Allergy (Unknown, Uncoded 05/29/22 15:06) anaphylaxis Medication List - Last Reconciled 12/27/24 by Laya Mosqueda CNP acetaminophen 1,000 mg PO Q8H PRN alendronate 10 mg PO DAILY calcium carbonate (Calcium 600) 600 mg PO BID cetirizine 10 mg PO DAILY cholecalciferol (vitamin D3) 50 mcg PO DAILY famotidine 20 mg PO DAILY fluoxetine 10 mg PO BEDTIME fluticasone propionate 50 mcg/actuation 2 sprays intranasal QAM PRN hydralazine 50 mg PO TID oxcarbazepine 150 mg PO DAILY rosuvastatin 20 mg PO DAILY spironolactone 100 mg PO QAM HPI HPI colo screening: Details: Patient is a 69-year-old Frisian speaking female with PMH of depression, hyperlipidemia, hypertension, prediabetes, CKD III and ? hypothyroidism. Referred by PCP for pre colonoscopy screening. Last colonoscopy (2017) with one precancerous polyp removed; repeat recommended within 7?10 yrs. Pt reports daily BMs, 2?3?/day, but describes stools as hard/difficult to pass, requiring straining; this pattern persists. Passing flatus without difficulty. Current constipation managed with self-directed hydration, abdominal massage, and relaxation?reports these measures are helpful; no Rx or OTC laxatives used. Reflux previously present but now well controlled on famotidine; denies current heartburn, regurgitation, or chest discomfort. No hospital/UC visits, no reported flares Patient denies: fever/chills, n/v, appetite changes, dysphasia, unintentional wt loss, ab pain or melena/hematochezia. Social hx: -denies ETOH use -denies recreational drug use -non-smoker - family hx as below -denies personal hx of CA - significant cardiopulmonary history -tolerated anesthesia in the past without difficulty. PFSH Medical History (Updated 12/27/24 @ 09:59 by Laya Mosqueda CNP) Acid reflux Constipation Anemia Colon cancer screening Hypertension Depression Diabetes Hypothyroidism CKD (chronic kidney disease) HLD (hyperlipidemia) Surgical History (Updated 12/27/24 @ 09:10 by Bailey Pedraza) Hx of colonoscopy Family History (Updated 12/27/24 @ 09:11 by Bailey Pedraza) Mother Heart disease Father Heart disease Social History (Updated 12/27/24 @ 09:12 by Bailey Pedraza) Household Members: Family Alcohol intake: never Patient Tobacco Use Status: Never used Tobacco Use of substances other than those prescribed or required for medical reasons: No Review of Systems Const Reports as per HPI ENT Reports as per HPI Card Reports as per HPI Resp Reports as per HPI GI Reports as per HPI Reports as per HPI Physical Exam Vital Signs: Last Vital Signs Pulse 68 12/27/24 09:04 BP 118/76 12/27/24 09:04 Pulse Ox 99 12/27/24 09:04 Oxygen Delivery Method Room Air 12/27/24 09:04 BMI result Body Mass Index 30.4 Const General: healthy appearing, no acute distress and well developed Nutritional Appearance: average body habitus Orientation/consciousness: patient oriented x3 HEENT Head: Yes normal to inspection, Yes normocephalic and Yes atraumatic Face and sinus: Yes normal facial exam Eyes General: appearance normal, both eyes and all related structures Neck Neck: Yes normal visual inspection Resp Effort & Inspection: normal respiratory effort, able to speak in complete sentences, no tracheal deviation and symmetric chest movement Cardio Jugular venous distension: no JVD GI Inspection: Yes normal to inspection, No distended and Yes obesity Palpation (GI): Soft to palpation, not firm, nontender and No hepatosplenomegaly present Auscultation: normal bowel sounds Neuro General: patient oriented x3 Gait exam (Neuro): Normal gait present Psych Appearance: grossly normal Mental Status: mental status grossly normal Speech and movement: Normal speech and movement present Affect: normal affect Attitude: cooperative Thought process: Normal thought process present Thought content: Normal thought content present Insight: Good insight present (Psych) Judgement: Good judgement present (Psych) Assessment & Plan Assessment & Plan (1) Colon cancer screening: Comment: 09/03/17 colonoscopy (Dr. Hogan) complete with good prep- 2 cm TA ( hepatic flexure). Per guidelines repeat 7-10 years. Code(s): Z12.11 - Encounter for screening for malignant neoplasm of colon Category: Medical Plan: Due for polyp Surveillance colonoscopy. No alarm features. Medications: -prescriptions for laxative tablets and PEG sent to pharmacy; instructions on clear liquid diet given. Patient educated on scheduling process, procedure preparation, including avoiding certain foods and ensuring clear liquid intake Advised on necessity for ride post-procedure due to sedation. (2) Constipation: Code(s): K59.00 - Constipation, unspecified Category: Medical Qualifiers: Constipation type: unspecified constipation type Qualified Code(s): K59.00 - Constipation, unspecified Plan: Stable, persistent?managed with hydration, massage, and relaxation measures; no current desire for meds. Possible hypothyroid contribution Additional testing: TSH ordered to r/o hypothyroid contribution; iron studies and vitamin levels to evaluate anemia and possible GI losses Medications: None initiated for constipation at this time, pt preference. Advised to reach out for Rx/OTC aid if sxs worsen. Lifestyle Recommendations: Continue hydration and self-directed management. Monitor for red flag sxs (blood, severe pain, wt loss). Referrals/Coordination: None now F/U Plan: Review TSH/iron studies on f/u; reassess constipation sxs and adjust plan as needed (3) Acid reflux: Code(s): K21.9 - Gastro-esophageal reflux disease without esophagitis Category: Medical Qualifiers: Esophagitis presence: esophagitis presence not specified Qualified Code(s): K21.9 - Gastro-esophageal reflux disease without esophagitis Plan: Stable, well controlled on famotidine since 2020; no current reflux sxs Additional testing: EGD to be done with colonoscopy, given GERD hx and long-term need for acid suppression Medications: Continue famotidine 20mg daily Lifestyle Recommendations: Reinforce lifestyle triggers avoidance Referrals/Coordination: EGD scheduled with colonoscopy F/U Plan: Review EGD results, med efficacy (4) Anemia: Code(s): D64.9 - Anemia, unspecified Category: Medical Qualifiers: Anemia type: unspecified type Qualified Code(s): D64.9 - Anemia, unspecified Plan: Hx of microcytic anemia, etiology unclear, no prior workup detailed Rationale: Screening prior to colonoscopy, assessment of GI sources or nutritional deficits Additional testing: CBC, Fe studies, B12/folate ordered Medications: None at present Lifestyle Recommendations: None at present Referrals/Coordination: None at present F/U Plan: Review labs f/u visit Plan Follow-up after endoscopy or sooner as needed Time: I spent a total of 34 minutes on the date of encounter which includes: Preparing to see the patient (reviewed previous documentation, test results and medical history) Performing a medically appropriate exam and/or evaluation Ordering medications, tests, and procedures Documenting clinical information in the health record Orders: Orders IRON PROFILE Today D64.9 - Anemia, unspecified Complete Blood Count Auto Diff Today D64.9 - Anemia, unspecified TSH reflex Free T4 Today K59.00 - Constipation, unspecified Vitamin B12 and Folate Today D64.9 - Anemia, unspecified Referrals GI Procedure Notification K21.9 - Gastro-esophageal reflux disease without esophagitis, Z12.11 - Encounter for screening for malignant neoplasm of colon Medications: New bisacodyl Take per colonoscopy instructions 5 mg PO ONCE 4 tabs 0RF simethicone (Gas Relief (simethicone)) per colonoscopy prep instructions 125 mg PO ONCE 4 caps 0RF abdominal distention peg 3350-electrolytes 236-22.74-6.74 -5.86 gram until fecal effluent is clear 240 mL PO ONCE 4,000 mL 0RF Coding Level of Care Code New Pt New Pt Level 3 (21450) Patient Type New Diagnoses Colon cancer screening Z12.11 Constipation, unspecified constipation type K59.00 Constipation type: unspecified constipation type Gastroesophageal reflux disease, unspecified whether esophagitis present K21.9 Esophagitis presence: esophagitis presence not specified Anemia, unspecified type D64.9 Anemia type: unspecified type
--- OUTSIDE RECORDS SUMMARY | 2024-12-27 09:48 | XMS_ITS | Encounter Summary ---
Author Organization [email or web address] Address [address] [place] [address] Care Team Providers Care Pipe Organ Mechanic Apprentice Name Role Phone Ani Ramires CNP Primary Care Provider [phone] Katharine Cat PharmD Unavailable [phone] Encounter Details Date Type Department Care Team (Latest Contact Info) Description 12/22/2024 Travel Social History Tobacco Use Types Packs/Day [...] 12/29/2024 11:30 AM EDT Medication Management [facility] [address] [place], [place] [phone] Katharine Cat PharmD [address] [place] [address] 01/03/2025 9:45 AM EDT Office Visit [facility] PEDS [address] [place], [place] [phone] Ani Ramires CNP [address] [place] [address] documented as of this encounter Visit Diagnoses Not on filedocumented in this encounter Additional Health Concerns Assessment Noted Time PHQ-9 Depression Total Score: 1 04/21/19 25 1:50 PM EST documented as of this encounter Care Teams Pipe Organ Mechanic Apprentice Relationship Specialty Start Date End Date Ani Ramires CNP PCP - General Family Medicine 06/05/24 Katharine Cat, PharmD [address] [place], [place] [phone] Pharmacist Internal Medicine 06/26/24 documented as of this encounter
--- OUTSIDE RECORDS SUMMARY | 2024-12-27 09:48 | XMS_ITS | Encounter Summary ---
Author Organization [employer] Address [address] [facility] [address] [place] [address] Care Team Providers Care Correctional Substance Abuse Counselor Name Role Phone Zlueima Ward MD Primary Care Provider [phone] Ani Ramires CNP Primary Care Provider [phone] Katharine Cat PharmD Unavailable [phone] Reason for Visit * Reason Onset Date Comments Change PCP 06/07/2023 Encounter Details Date Type Department Care Team ([facility] st Contact Info) Description 06/07/2023 Telephone [facility]INE [address] [place] [address] Zuleima Ward MD [address] [place], [place] [phone] Change PCP Social History Tobacco Use Types [...] 1:59 PM EDT RN called pt via [employer] interpretor #[id number], pt states she would like to change to a Australian speaking provider to help understand her more. mPt is complaining iof bone pain, informed to come to [facility] for evaluation. Pt states understanding. Please sandra change in PCP request Tc from pt requesting a PCP change due to not meeting medical needs. Please contact pt at [phone] (Australian) * Telephone Encounter - Cookie Pedraza - 06/07/2023 11:39 AM EDT Tc from pt requesting a PCP change due to not meeting medical needs. Please contact pt at [phone] (Australian) documented in this encounter Plan of Treatment Upcoming Encounters Date Type Department Care Team (Late st Contact Info) Description 12/29/2024 11:30 AM EDT Medication Management [facility] MED[facility]INE [address] [place] [phone] Katharine Cat PharmD [address] [place] [address] 01/03/2025 9:45 AM EDT Office Visit [facility] PEDS [address] [place] [address] Ani Ramires CNP [address] [place] [address] documented as of this encounter Visit Diagnoses Not on filedocumented in this encounter Additional Health Concerns Assessment Noted Time PHQ-9 Depression Total Score: 3 05/24/19 24 11:36 AM EDT documented as of this encounter Care Teams Correctional Substance Abuse Counselor Relationship Specialty Start Date End Date Zuleima Ward MD [address] [place] [id number] PCP - General Family Medicine 04/25/20 06/04/24 Ani Ramires CNP [address] [place] [id number] PCP - General Family Medicine 06/05/24 Katharine Cat PharmD [address] [place] [id number] Pharmacist Internal Medicine 06/26/24 documented as of this encounter
--- OUTSIDE RECORDS SUMMARY | 2024-12-27 09:48 | XMS_ITS | Clinical Summary ---
Author Organization [facility] Address [address] [place] [address] Phone Care Team Providers Care Clinical Social Worker Name Role Phone Zuleima Ward MD Primary [...] [place] [id number] Care Teams Clinical Social Worker Relationship Specialty Start Date End Date Zuleima Ward MD PCP - General Marine Structural Designer 01/03/21
--- OUTSIDE RECORDS SUMMARY | 2024-12-27 09:48 | XMS_ITS | Clinical Summary ---
Author Organization [email or web address] Address [address] [place] [address] [address] [place] [address] Care Team Providers Care Intravenous Therapy Nurse Name Role Phone Ani Ramires CNP Primary Care Provider [phone] Katharine Cat PharmD Unavailable [phone] Allergies Active Allergy Reactions Criticality Noted Date Comments Fish Allergy 09/18/2013 Other reaction(s): throat closes up, stuffy nose Lisinopril Angioedema High 09/24/2011 Medications famotidine (Pepcid) 20 MG tablet TAKE 1 TABLET BY MOUTH ONCE DAILY 90 tablet 3 02/29/20 24 Active Additional Information Patient taking differently:20 mg OralDaily PRN, heartburn, Reported on 09/13/2024 D3 Super Strength 50 MCG (2000 UT) capsule TAKE 1 CAPSULE BY MOUTH EVERY DAY 90 capsule 3 02/29/20 24 Active FLUoxetine (PROzac) 10 MG capsuleIndications :Anxiety Take 1 capsule (10 mg) by mouth Once per day. 30 capsule 11 04/21/19 25 Active Acetaminophen Extra Strength 500 MG tablet TAKE 2 TABLETS BY MOUTH EVERY 8 HOURS NEEDED FOR MILD PAIN 90 tablet 1 07/06/19 25 Active fluticasone (Flonase) 50 MCG/ACT nasal spray Administer 2 sprays into each nostril Once per day. Shake gently. Before first use, prime pump. After use, clean tip and replace cap. 16 g 3 07/28/19 25 Active Ketotifen Fumarate (Alaway) 0.035 % solution Administer 1 drop into affected eye(s) if needed in the morning and at bedtime (eye itching). 10 mL 3 07/28/19 25 Active OXcarbazepine (Trileptal) 150 MG tabletIndications: Anxiety Take 1 tablet (150 mg) by mouth at bedtime. 90 tablet 07/29/19 25 026 Active cetirizine (ZyrTEC) 10 MG tablet TAKE 1 TABLET BY MOUTH EVERY DAY 30 tablet 09/18/19 25 Active Additional Information Patient taking differently:10 mg OralDaily PRN, Reported on 09/27/2024 spironolactone (Aldactone) 100 MG tabletIndications: Essential hypertension Take 1 tablet (100 mg) by mouth Once per day. 90 tablet 09/28/19 25 Active rosuvastatin (Crestor) 20 MG tabletIndications: Hyperlipidemia, unspecified hyperlipidemia type Take 1 tablet (20 mg) by mouth Once per day. 90 tablet 09/28/19 25 Active hydrALAZINE (Apresoline) 50 MG tabletIndications: Essential hypertension Take 1 tablet (50 mg) by mouth 3 times daily. 90 tablet 09/28/19 25 Active alendronate (Fosamax) 10 MG tabletIndications: Osteoporosis, unspecified osteoporosis type, unspecified pathological fracture presence Take 1 tablet (10 mg) by mouth before breakfast. Take in the morning with a full glass of water, on an empty stomach, and do not take anything else by mouth or lie down for the next 30 min. 30 tablet 10/05/19 25 026 Active calcium carbonate (Calcium 600) 600 MG tabletIndications: Osteoporosis, unspecified osteoporosis type, unspecified pathological fracture presence Take 1 tablet (600 mg) by mouth with breakfast and with evening meal. 60 tablet 10/05/19 25 026 Active Active Problems Problem Noted Date Diagnosed Date Routine health maintenance 04/21/2024 Assessment & Plan (04/21/2024 3:14 PM EST): Pt due for routine bloodwork, pt also on spironolactone will order BMP as well to trend potassium, pt plans to complete bloodwork in 1 week as we have just increased her spironolactone from 25 mg to 75 mg per her transportation specialist's recommendations. Mammo due- orders placed DEXA due- [...] bradycardia 03/03/2021 Stage 3 chronic kidney disease (CMS/HCC) 021 Prediabetes 06/05/2020 Proteinuria 06/05/2020 Acquired hypothyroidism 02/24/2017 Assessment & Plan (05/24/2023 2:26 PM EDT): TSH 3.88 today off Synthroid for 6 months Synthroid no longer needed Assessment & Plan (11/09/2022 9:37 AM EDT): On Synthroid 50mcg daily Check TSH today Cobalamin deficiency 06/21/2015 Depressive disorder 06/21/2015 Essential hypertension 06/21/2015 Assessment & Plan (04/21/2024 3:19 PM EST): Updated pt med list to reflect transportation specialist recommendations. Pt med regimen should be the [...] Hydralazine, nurse BP check in 2-4 weeks [facility] advised for worsening dizziness symptoms Nephro re-consulted [...] Encounters Date Type Department Care Team Description 12/26/[address] [address] Ani Ramires CNP 12/22/2024 Travel 10/04/2024 10:45 AM EDT Office Visit [facility] [address] [place] [address] Ani Ramires CNP Osteoporosis, unspecified osteoporosis type, unspecified pathological fracture presence (Primary Dx); Chest pain on exertion; Abnormal ECG; Essential hypertension 10/04/2024 Orders Only GENERIC EXTERNAL DATA DEPARTMENT Provider, Generic External Data 10/04/2024 Travel 10/03/[address] [address] Kala Ferreira [place] CHARTPREP 10/03/2024 Travel 09/27/2024 Orders Only GENERIC EXTERNAL DATA DEPARTMENT Provider, Generic External Data 09/27/2024 Telephone [facility] [address] [place] [address] Katharine Cat, PharmD 09/27/2024 Travel 09/26/2024 Patient Outreach [facility] [address] [place] [address] Ani Ramires CNP Pre-visit Planning (SDOH was already completed) from Last 3 Months Immunizations Immunization Administration Dates Next Due Influenza High-dose Quadriva [...] tox oid, preservative free, adsorbed 05/27/2010 Tdap 06/26/2024,05/24/2013 Zoster, Recombinant 02/16/2022,12/15/2021 Zoster, live 03/19/2016 Family [...] Mass Index 29.45 10/04/2024 11:00 AM EDT Plan of Treatment Upcoming Encounters Date Type Department Care Team (Late st Contact Info) Description 12/29/2024 11:30 AM EDT Medication Management [facility] [address] [place] [address] Katharine Cat, PharmD [address] [place] [address] 01/03/2025 9:45 AM EDT Office Visit [facility] [address] [place], [place] [phone] Ani Ramires, MORTGAGE PROCESSING CLERK [address] [place], [place] [phone] Health Maintenance Due Date Last Done Comments CT Colonography 1955 FIT DNA/Cologuard 1955 FIT 1955 FOBT 1955 Sigmoidoscopy 1955 Hepatitis C Screening 11/23/1973 COVID-19 Vaccine ( season) 2024 04/21/2024, 01/30/2022, 04/23/2021, Additional history exists Influenza Vaccine (#1) 2024 , 12/15/2021, 12/23/2018, Additional history exists Alcohol/Substance Use Screening 04/21/2025 04/21/2024 Depression Screening 04/21/2025 04/21/2024, 04/21/19 25 SDOH Screening 04/21/2025 04/21/2024 Diabetes: Hemoglobin A1C 04/26/2025 025, 01/21/2022, 07/28/2021 Mammogram 05/23/2025 05/23/2024, 11/2022, 08/21/2022, Additional history exists Tobacco Screening 07/21/2025 07/21/2024 Colonoscopy 09/04/2027 09/03/2017 Colorectal Cancer Screening 09/04/2027 Lipid Panel 09/20/2029 09/20/2024, 04/15, 01/21/2022, Additional history exists RSV Patients and Patients Aged 60 years or older (1 - 1-dose 75+ series) 11/23/2030 DTaP/Tdap/Td Vaccines (3 - Td or Tdap) 06/26/2034 06/26/2024, 05/24/2013, 05/27/2010 Pneumococcal Vaccine: 50+ Years Completed 12/15/2021 Zoster Vaccines Completed 02/16/2022, 05/2021, 03/19/2016 HIB Vaccines Aged Out No longer eligi [...] patient's age to complete this topic Meningococcal B Vaccine Aged Out No l onger eligible based on patient's age to complete [...] Procedure Name Priority Date/Time Associated Diagnosis Comments STRESS TEST WITH MYOCARDIAL PERFUSION Routine 12/04/2024 9:58 AM EDT Chest pain on exertion Abnormal ECG UREA NITROGEN (BUN) Routine 10/04/2024 1 1:51 AM EDT CALCIUM Routine 10/04/2024 11:51 AM EDT Osteoporosis, unspecified osteoporosis type, unspecified pathological fracture presence VITAMIN D,25-OH,TOTAL,IA Routine 10/04/2024 11:51 AM EDT Osteoporosis, unspecified osteoporosis type, unspecified pathological fracture presence ECG 12-LEAD Routine 10/04/2024 11:46 AM EDT Chest pain on exertion ALBUMIN, RANDOM URINE W/CREATININE Routine 09/27/2024 2:57 PM EDT UREA NITROGEN (BUN) Routine 09/27/2024 2 :57 PM EDT LIPID PANEL, STANDARD Routine 09/20/2024 10:21 AM EDT BI MAMMOGRAM SCREENING TOMOSYNTHESIS BILATERAL Routine 05/23/2024 11:55 AM EDT Routine health maintenance HEMOGLOBIN A1C Routine 04/26/2024 10:40 AM EST Routine health maintenance HM COLONOSCOPY Routine 09/03/2017 from Last 3 Months or Most Recently Relevant to Health Maintenance Results * Stress test with myocardial perfusion (12/04/2024 9:58 AM EDT) 12/04/2024 9:58 AM EDT Narrative [facility] - 12/05/2024 4:13 PM EDT [address] [address] Nuclear Medicine Report Signed Patient: Danni Lakhani MR#: [id number] : 1955 Acct:[id number] Age/Sex: 69 / F ADM Date: 12/04/24 Loc: [facility] Attending Dr: Ani Ramires ARTIST MANAGER Ordering Physician: Ani Ramires NP Date of Service: 12/04/24 Procedure(s): NM cardiolite stress test Accession Number(s): [id number] cc: RamiresAni JAZZY Reason for Exam: CP on exertion // LEXISCAN Lexiscan Myocardial perfusion study Indication: Chest pain on exertion to evaluate for myocardial ischemia Technique: The patient was brought in for a Lexiscan perfusion study on 12/04/2024 and was injected 0.4 mg of Lexiscan intravenously. Within a minute of this injection 25 mCi of sestamibi was given intravenously. Images were obtained using the SPECT gamma camera interlaced with the gating device. Images were obtained in supine position. Resting perfusion study was performed on 12/05/2024. Patient was administered 25 mCi of sestamibi intravenously at rest. Images were then obtained in supine position. Images obtained without without CT attenuation. Total DLP 97 mGy-cm. Images were processed with the software and compared side to side in short axis, horizontal long axis and vertical long axis views. Findings: The stress perfusion study showed both attenuated as well as nonattenuated corrected images show mildly reduced uptake in the distal lateral wall of the LV myocardium. Remainder of the LV myocardium is normally perfused. The gated study shows normal LV systolic function with calculated LVEF of 63%. LV cavity is normal in size. The gated study shows normal systolic wall thickening and contraction of segments. Resting study shows normal uptake of radiotracer in all segments of the LV myocardium. Gating at rest reveals normal systolic wall motion with ejection fraction at 68%. The findings are consistent with small area of mild intensity distal lateral wall ischemia. NM/NM cardiolite stress test Impression: 1. Myocardial perfusion imaging study shows small area of mild intensity distal lateral wall ischemia in branch vessel distribution 2. Gated LVEF is 63% 3. Transient ischemic dilatation not present Nondiagnostic changes on EKG. Electronically signed by: Willard Jackson MD 12/05/2024 04:10 PM EDT Dictated By: Willard Jackson MD Signed By: <Electronically signed by Willard Jackson MD in OV> 12/05/24 1610 DD/ 0958 TD/TT: 12/05/24 1235 Contact Lens Inspector: Procedure Note Donotuseinterpreter, Image - 12/05/[address] [address] Nuclear Medicine Report Signed Patient: Danni Lakhani#: [id number] : 6Acct:[id number] Age/Sex: 69 / FADM Date: 12/04/24 Loc: [facility] Attending Dr: Ani Ramires ARTIST MANAGER Ordering Physician: Ani Ramires NP Date of Service: 12/04/24 Procedure(s): NM cardiolite stress test Accession Number(s): [id number] cc: Ani Ramires NP Reason for Exam: CP on exertion // LEXISCAN Lexiscan Myocardial perfusion study Indication: Chest pain on exertion to evaluate for myocardial ischemia Technique: The patient was brought in for a Lexiscan perfusion study on 12/04/2024 and was injected 0.4 mg of Lexiscan intravenously. Within a minute of this injection 25 mCi of sestamibi was given intravenously. Images were obtained using the SPECT gamma camera interlaced with the gating device. Images were obtained in supine position. Resting perfusion study was performed on 12/05/2024. Patient was administered 25 mCi of sestamibi intravenously at rest. Images were then obtained in supine position. Images obtained without without CT attenuation. Total DLP 97 mGy-cm. Images were processed with the software and compared side to side in short axis, horizontal long axis and vertical long axis views. Findings: The stress perfusion study showed both attenuated as well as nonattenuated corrected images show mildly reduced uptake in the distal lateral wall of the LV myocardium. Remainder of the LV myocardium is normally perfused. The gated study shows normal LV systolic function with calculated LVEF of 63%. LV cavity is normal in size. The gated study shows normal systolic wall thickening and contraction of segments. Resting study shows normal uptake of radiotracer in all segments of the LV myocardium. Gating at rest reveals normal systolic wall motion with ejection fraction at 68%. The findings are consistent with small area of mild intensity distal lateral wall ischemia. MO/MO cardiolite stress test Impression: 1. Myocardial perfusion imaging study shows small area of mild intensity distal lateral wall ischemia in branch vessel distribution 2. Gated LVEF is 63% 3. Transient ischemic dilatation not present Nondiagnostic changes on EKG. Electronically signed by: Willard Jackson MD 12/05/2024 04:10 PM EDT Dictated By: Willard Jackson MD Signed By: <Electronically signed by Willard Jackson MD in OV> 12/05/24 1610 DD/ 0958 TD/TT: 12/05/24 1235 Contact Lens Inspector: [facility] CV STRESS PROCEDURES Leann l Result Performing Organization Address [facility] Co de Phone Number [facility] [address] [place] [address] * Vitamin D, 25-Hydroxy, Total, Immunoassay (10/04/2024 11:51 AM EDT) Vitamin D 25-OH Total 44.1 >30 ng/mL [facility] Comment: Health Based Reference Values*< 20 ng/mL Xtxkaswlz77-44 ng/mL Insufficient> 30 ng/mL Sufficient*Yann YOUNGER. N Engl J Med. 2007;357:266-280There is no well-established upper level of normal vitamin Dlevels. Some laboratories use 50 ng/mL as an upper limit ofnormal. However, toxicity is patient-dependent and may occurat any level. Careful correlation with the patient'spresentation is necessary and, if there is concern forvitamin D toxicity, treatment should be consideredirrespective of the serum level.Care must be taken in interpreting Vitamin D results fromdifferent laboratories and methodologies. Published datademonstrated that results from patients undergoinghemodialysis may show a negative bias when tested withvarious automated 25-OH vitamin D assays when compared toLC-MS/MS.When testing samples from patients whose predominant form ofVitamin D is Vitamin D2, such as patients receiving VitaminD2 supplementation, results that are subtherapeutic shouldbe confirmed with another method such as LC-MS/MS. Blood Venous blood specimen / Unknown 10/04/2024 11:51 AM EDT 10/04/2024 1:13 PM EDT [facility] LAB BLOOD ORDERABLES Leann l Result Performing Organization Address [facility] de Phone Number [facility] [address] [place] [phone] * BUN (Blood Urea Nitrogen) (10/04/2024 11:51 AM EDT) Only the most recent of2 resultswithin the time period is included. Urea Nitrogen (BUN) 13 9 - 16 mg/dL [facility] 10/04/2024 11:5 1 AM EDT 10/04/2024 1:13 PM EDT Generic External Data Provider LAB BLOOD ORDERAB LES Final Result Performing Organization Address [facility] de Phone Number [facility] [address] [place] [phone] * Calcium (10/04/2024 11:51 AM EDT) [facility] Calcium 9.7 8.4 - 10.2 mg/dL [facility] Blood Venous blood specimen / Unknown 10/04/2024 11:51 AM EDT 10/04/2024 1:13 PM EDT [facility] LAB BLOOD ORDERABLES Leann l Result Performing Organization Address [facility] de Phone Number [facility] [address] [place] [phone] * ECG 12 lead (10/04/2024 11:46 AM EDT) Narrative Ani Ramires CNP - 10/04/2024 11:46 AM EDT EKG 75bpm, NSR, p wave progression slow [facility] ECG ORDERABLES Final Res ult * Albumin, Random Urine W/Creatinine (09/27/2024 2:57 PM EDT) Creatinine, Urine 134.39 mg/dL [facility] Microalbumin Urine 8.0 mg/L [facility] Microalbum Creatinine Ratio Ur 5.9 <30 ug/mg cr [facility] Comment:Albumin/Creatinine R atio Reference Ranges: Normal: < 30 ug/mg creatinine Microalbuminuria: 30 - 300 ug/mg creatinineClinical Albuminuria: > 300 ug/mg creatinine 09/27/2024 2:57 PM EDT 09/27/2024 3:59 PM EDT [facility] LAB URINE ORDERABLES Leann l Result Performing Organization Address [facility] Co de Phone Number [facility] [address] [place] [phone] * Lipid Panel, Standard (09/20/2024 10:21 AM EDT) Triglycerides 84 <150 mg/dL [facility] Comment:Desirable Triglyceri de: less than 150 mg/dLBorderline High Triglyceride 150-199 mg/dLHigh Triglyceride: 200-499 mg/dLVery High Triglyceride: greater than or equal to 5OO mg/dL Cholesterol 127 <200 mg/dL [facility] Comment:Desirable Cholestero l: less than 200 mg/dLBorderline High Cholesterol: 200-239 mg/dLHigh Cholesterol: greater than 239 mg/dL LDL Cholesterol Calculated 62 <100 mg/dL [facility] Comment:Desirable LDL: less than 100 mg/dLNear Optimal/Above Optimal LDL: 110- 129 mg/dLBorderline High LDL: 130-159 mg/dLHigh LDL: 160-189 mg/dLVery High LDL: greater than or equal to 190 mg/dL HDL Cholesterol 49 >40 mg/dL [facility] Comment:Desirable HDL: great er than 40 mg/dL Note: This HDL assay may give artificially low results in patients with liver disease. 09/20/2024 10:2 1 AM EDT 09/20/2024 12:00 PM EDT [facility] LAB BLOOD ORDERABLES Leann l Result Performing Organization Address [facility]/ZIP Co de Phone Number [facility] [address] [place] [phone] * BI Mammogram Screening Tomosynthesis Bilateral (05/23/2024 11:55 AM EDT) Anatomical Region Laterality Modality Breast Bilateral Mammography 05/23/2024 11:5 5 AM EDT Narrative 05/30/2024 5:30 PM EDT [facility] [address] [place] [address] Mammography Report Signed Patient: Danni Lakhani MR#: [id number] : 1955 Acct:[id number] Age/Sex: 68 / F ADM Date: 05/23/24 Loc: LUCILA Attending Dr: Ani Ramires ARTIST MANAGER Ordering Physician: Ani Ramires Results: 1Nega tive Date of Service: 05/23/24 Follow Up: 1 Year From Orig ina Mammogram Procedure(s): MM tomosynthesis screening BI Accession Number(s): [id number] cc: Ani Ramires EXAMINATION: MM SCREENING DIGITAL BREAST TOMOSYNTHESIS, BILATERAL CLINICAL INFORMATION: Screening. Asymptomatic. COMPARISON: Mammography: Comparison is made with available priors TECHNIQUE: Digital breast mammography with tomosynthesis is performed in both the craniocaudal and mediolateral oblique views along with computer-aided detection (CAD). FINDINGS: There are scattered areas of fibroglandular density (ACR BI-RADS breast composition Category b). There are no significant masses, abnormal calcifications, or other abnormalities. MM/MM tomosynthesis screening BI IMPRESSION: No mammographic evidence of malignancy. ASSESSMENT: BI-RADS BI-RADS 1 - Negative RECOMMENDATION: Routine annual mammography screening. 1 year F/U This examination should not preclude the clinical evaluation of a suspicious palpable abnormality. This patient's information was entered into a reminder system with a target due date for their next mammogram. Electronically signed by: Mikayla Mahajan DO 05/30/2024 05:24 PM EDT Dictated By: Mikayla Mahajan DO Signed By: <Electronically signed by Mikayla Mahajan DO in OV> 05/30/24 1724 DD/ 1155 TD/TT: 05/23/24 1210 Contact Lens Inspector: Procedure Note Donotuseinterpreter, Image - 05/30/2024 [place] [facility] [address] [place], [place] [address] Mammography Report Signed Patient: Danni LakhaniMR#: [id number] : 6Acct:[id number] Age/Sex: 68 / FADM Date: 05/23/24 Loc: HO.MAMMO Attending Dr: Ani Ramires ARTIST MANAGER Ordering Physician: Diana Ramiresesults: 1Nega tive Date of Service: 05/23/24Follow Up: 1 Year From Orig inal Mammogram Procedure(s): MM tomosynthesis screening BI Accession Number(s): [id number] cc: Ani Ramires EXAMINATION: MM SCREENING DIGITAL BREAST TOMOSYNTHESIS, BILATERAL CLINICAL INFORMATION: Screening. Asymptomatic. COMPARISON: Mammography: Comparison is made with available priors TECHNIQUE: Digital breast mammography with tomosynthesis is performed in both the craniocaudal and mediolateral oblique views along with computer-aided detection (CAD). FINDINGS: There are scattered areas of fibroglandular density (ACR BI-RADS breast composition Category b). There are no significant masses, abnormal calcifications, or other abnormalities. MM/MM tomosynthesis screening BI IMPRESSION: No mammographic evidence of malignancy. ASSESSMENT: BI-RADS BI-RADS 1 - Negative RECOMMENDATION: Routine annual mammography screening. 1 year F/U This examination should not preclude the clinical evaluation of a suspicious palpable abnormality. This patient's information was entered into a reminder system with a target due date for their next mammogram. Electronically signed by: Mikayla Mahajan DO 05/30/2024 05:24 PM EDT Dictated By: Mikayla Mahajan DO Signed By: <Electronically signed by Mikayla Mahajan DO in OV> 05/30/24 1724 DD/ TD/TT: 05/23/24 1210 Contact Lens Inspector: Ani Ramires MORTGAGE PROCESSING CLERK IMG BI PROCEDURES Final R esult * Hemoglobin A1c (04/26/2024 10:40 AM EST) Hemoglobin A1c 5.6 <6.0 % [facility] Comment:Hemoglobin A1C Refer ence Range Adults: 4.8 - 6.0 % Non diabetic: < 6.0 % Goal: < 7.0 %Additional Action Suggested: > 8.0 %Note: Hemoglobin A1c results are invalid for patients with abnormal amounts of HbF. Blood transfusions may impact the HbA1c concentration in the patient sample. Estimated Average Glucose 114 mg/dL [facility] Comment:eAG = Estimated ave rage glucose which is %A1C expressed asaverage glucose, using the formula of the D6P-[id number] Glucose study (ADAG), Diabetes Care, Vol.31,#8,Oct. 2007 Blood Venous blood specimen / Unknown 04/26/2024 10:40 AM EST 04/26/2024 1:42 PM EST [facility] LAB BLOOD ORDERABLES Leann mireles Result [facility] [address] [place] [phone] * Colonoscopy (09/03/2017) Historical Provider HEALTH MAINTENANCE Final Result from Last 3 Months or Most Recently Relevant to Health Maintenance Insurance [facility] [employer] [place] MEDICARE ADVANTAGE [facility] [place] [id number] [place] [id number] [facility] [place] [address] Care Teams Intravenous Therapy Nurse Relationship Specialty Start Date End Date Ani Ramires CNP PCP - General Family Medicine 06/05/24 Katharine Cat PharmD [address] [place] [phone] Pharmacist Internal Medicine 06/26/24
--- OUTSIDE RECORDS SUMMARY | 2024-12-27 09:48 | XMS_ITS | Encounter Summary ---
Author Organization [employer] Address [address] [facility] 7 [place] [address] Care Team Providers Care Steamtable Worker Name Role Phone Ani Ramires CNP Primary Care Provider [phone] Katharine Cat PharmD Unavailable [phone] Encounter Details Date Type Department Care Team ([facility] st Contact Info) Description 12/26/2024 Telephone [facility] [address] [place] [address] Ani Ramires CNP [address] [facility] [address] [place] [address] Social History Tobacco Use Types Packs/Day Years [...] Miscellaneous Notes * Telephone Encounter - Destiny Pichardo - 12/26/2024 2:19 PM EDT CHW Destiny Mabry Left a voice mail to pt regarding an appointment, if pt return the call please transfer to ext [phone], Thanks documented in this encounter Plan of Treatment Upcoming Encounters Date Type Department Care Team (Late st Contact Info) Description 12/29/2024 11:30 AM EDT Medication Management [facility] MED[facility]INE [address] [place] [address] Katharine Cat, PharmD 230 [place] [address] 01/03/2025 9:45 AM EDT Office Visit [facility] MED [facility] PEDS 505 [place], [place] [phone] Ani Ramires CNP 505 [place] [address] documented as of this encounter Visit Diagnoses Not on filedocumented in this encounter Additional Health Concerns Assessment Noted Time PHQ-9 Depression Total Score: 1 04/21/19 25 1:50 PM EST documented as of this encounter Care Teams Steamtable Worker Relationship Specialty Start Date End Date Ani Ramires CNP PCP - General Family Medicine 06/05/24 Katharine Cat, Jaqueline [address] [place] [address] Pharmacist Internal Medicine 06/26/24 documented as of this encounter
--- OUTSIDE RECORDS SUMMARY | 2024-12-27 09:48 | XMS_ITS | Encounter Summary ---
Author Organization [employer] [facility] Address [address] [place] [address] 7t [place] [address] Care Team Providers Care Rn Complex Care Name Role Phone Zuleima Ward MD Primary Care Provider [phone] Ani Ramires CNP Primary Care Provider [phone] Katharine Cat PharmD Unavailable [phone] Encounter Details Date Type Department Care Team (Late Contact Info) Description 11/18/2022 Orders Only [facility] MEDICINE [address] [place] [address] Provider, MD Jesica Social History Tobacco Use [...] Description 12/29/2024 11:30 AM EDT Medication Management [facility] MED[facility]INE 230 [place], [place] [phone] Katharine Cat, PharmD 230 [place], [place] [phone] 01/03/2025 9:45 AM EDT Office Visit [facility] MED [facility] PEDS 505 [place], [place] [phone] Ani Ramires CNP 505 [place] [address] documented as of this encounter Procedures Procedure Name Priority Date/Time Associated Diagnosis Comments HM COLONOSCOPY Routine 09/03/2017 documented in this encounter Results * Hm Colonoscopy (09/03/2017) Historical Provider HEALTH MAINTENANCE Final Result documented in this encounter Visit Diagnoses Not on filedocumented in this encounter Care Teams Rn Complex Care Relationship Specialty Start Date End Date Zuleima Ward MD 230 [place] [address] PCP - General Family Medicine 04/25/20 06/04/24 Ani Ramires CNP [address] [place] [address] PCP - General Family Medicine 06/05/24 Katharine Cat PharmD 230 [place] [address] Pharmacist Internal Medicine 06/26/24 documented as of this encounter
--- OUTSIDE RECORDS SUMMARY | 2024-12-27 09:48 | XMS_ITS | Encounter Summary ---
Author Organization [employer] Address [address] [facility] 7t [place] [address] Care Team Providers Care Supervisor Toy Assembly Name Role Phone Zuleima Ward MD Primary Care Provider [phone] Ani Ramires CNP Primary Care Provider [phone] Katharine Cat PharmD Unavailable [phone] Encounter Details Date Type Department Care Team (Late st Contact Info) Description 06/09/2023 Orders Only [facility] MEDICINE 230 [place] [address] Zuleima Ward MD 230 [place] [address] Fibromyalgia (Primary Dx) Social History Tobacco Use [...] Description 12/29/2024 11:30 AM EDT Medication Management [facility] MEDICINE 230 [place] [address] Katharine Cat, PharmD 230 [place] [address] 01/03/2025 9:45 AM EDT Office Visit [facility] MED & PEDS 505 [place], [place] [phone] Ani Ramires CNP 505 [place], [place] [phone] documented as of this encounter Visit Diagnoses Diagnosis Fibromyalgia- Primary Unspecified myalgia and myositis documented in this encounter Additional Health Concerns Assessment Noted Time PHQ-9 Depression Total Score: 3 05/24/19 24 11:36 AM EDT documented as of this encounter Care Teams Supervisor Toy Assembly Relationship Specialty Start Date End Date Zuleima Ward MD 230 [place] [address] PCP - General Family Medicine 04/25/20 06/04/24 Ain Ramires CNP 230 [place] [address] PCP - General Family Medicine 06/05/24 Katharine Cat PharmD 230 [place] [address] Pharmacist Internal Medicine 06/26/24 documented as of this encounter
--- OUTSIDE RECORDS SUMMARY | 2024-12-27 09:48 | XMS_ITS | Encounter Summary ---
Author Organization [employer] Address [address] [place] [address] 7 [place] [address] Care Team Providers Care Honey Extractor Name Role Phone Zuleima Ward MD Primary Care Provider [phone] Ani Ramires CNP Primary Care Provider [phone] Katharine Cat PharmD Unavailable [phone] Encounter Details Date Type Department Care Team (Late st Contact Info) Description 12/15/2023 Orders Only [facility] MEDICINE [address] [place] [address] Zuleima Ward MD [address] [place] [address] Social History Tobacco Use Types Packs/Day Years [...] is your housing situation today? I have joemarivel lema 05/24/[address] you [...] 12/29/2024 11:30 AM EDT Medication Management [facility] MEDICINE [address] [place] [address] Katharine Cat, PharmD [address] [place] [address] 01/03/2025 9:45 AM EDT Office Visit [facility] CHC MED & PEDS 505 [place] [address] Ani Ramires CNP 505 [place] [address] documented as of this encounter Visit Diagnoses Not on filedocumented in this encounter Additional Health Concerns Assessment Noted Time PHQ-9 Depression Total Score: 3 05/24/19 24 11:36 AM EDT documented as of this encounter Care Teams Honey Extractor Relationship Specialty Start Date End Date Zuleima Ward MD [address] [place] [address] PCP - General Family Medicine 04/25/20 06/04/24 Ani Ramires CNP [address] [place] [address] PCP - General Family Medicine 06/05/24 Katharine Cat, LizyD [address] [place] [address] Pharmacist Internal Medicine 06/26/24 documented as of this encounter
--- OUTSIDE RECORDS SUMMARY | 2024-12-27 09:48 | XMS_ITS | Encounter Summary ---
Author Organization [email or web address] Address [address] [facility] [address] 7t [place] [address] Care Team Providers Care Clear Coat Sprayer Name Role Phone Zuleima Ward MD Primary Care Provider [phone] Ani Ramires CNP Primary Care Provider [phone] Katharine Cat PharmD Unavailable [phone] Reason for Visit * Reason Comments Med Refill Encounter Details Date Type Department Care Team ([facility] st Contact Info) Description 11/22/[address] [facility] 230 [place] [address] Re Crespo MD [address] [place] [address] Social History Tobacco Use Types Packs/Day Years [...] your housing situation today? I have joe torey 05/24/[address] you li [...] Description 12/29/2024 11:30 AM EDT Medication Management [facility] MEDICINE 230 [place] [address] Katharine Cat, PharmD 230 [place] [address] 01/03/2025 9:45 AM EDT Office Visit [facility] MED & PEDS 505 [place] [address] Ani Ramires CNP 505 [place] [address] documented as of this encounter Visit Diagnoses Not on filedocumented in this encounter Additional Health Concerns Assessment Noted Time PHQ-9 Depression Total Score: 3 05/24/19 24 11:36 AM EDT documented as of this encounter Care Teams Clear Coat Sprayer Relationship Specialty Start Date End Date Zuleima Ward MD [address] [place] [address] PCP - General Family Medicine 04/25/20 06/04/24 Ani Ramires CNP 230 [place] [address] PCP - General Family Medicine 06/05/24 Katharine Cat PharmD 230 [place] [address] Pharmacist Internal Medicine 06/26/24 documented as of this encounter
== END 2024-12-27 10:06 | disposition home or self-care (01) ==
LOC: HO.HGI 09:01
PROVIDERS: PCP General Practice; Visit Provider Nurse Practitioner Family
DX: Z01.818 Encounter for other preprocedural examination (principal); Z12.11 Encounter for screening for malignant neoplasm of colon; K59.00 Constipation, unspecified; K21.9 Gastro-esophageal reflux disease without esophagitis; D64.9 Anemia, unspecified
CPT/HCPCS: 99024

== ENCOUNTER → 2024-12-27 09:00 | Outpatient (BNVA) | payer OTHER, SELFPAY | PROVIDERS: PCP General Practice; Visit Provider Nurse Practitioner Family | DX: Z12.11 Encounter for screening for malignant neoplasm of colon (principal); K59.00 Constipation, unspecified; K21.9 Gastro-esophageal reflux disease without esophagitis; D64.9 Anemia, unspecified | CPT/HCPCS: 99212 ==

== ENCOUNTER 2025-01-10 11:00 | Outpatient (AMB) | payer OTHER, SELFPAY ==
--- NOTE | 2025-01-10 11:37 | HO.NEPHOV ---
Vital Signs 01/10/25 11:38 Height 5 ft 1 in Weight 163 lb BMI 30.8 BP 110/70 Blood Pressure Location Rt brachial Position Sitting Pulse 76 Pulse Source Pulse Oximeter Pulse Oximetry (%) 96 Oxygen Delivery Method Room Air Intake Visit Reasons: 3 MO FU-M Pharmacist In Charge Owner Required: Yes Pharmacist In Charge Owner Language: Certified Master Safe Technician Services: Pharmacist In Charge Owner Present Pharmacist In Charge Owner Name: Kane [id number] Information Interpreted: clinical only Accompanied by: Self / Same As Patient Allergies lisinopril (LISINOPRIL) Allergy (Intermediate, Verified 01/10/25 11:38) ANGIOEDEMA, angioedema? Seafood Allergy (Mild, Uncoded 05/29/22 15:06) DIFFICULTY BREATHING seafood Allergy (Unknown, Uncoded 05/29/22 15:06) throat closes up, stuffy nose seafood; shellfish Allergy (Unknown, Uncoded 05/29/22 15:06) anaphylaxis HPI Comments Details: Ms Lakhani was seen in follow-up of her hypertension and a history of mild CKD in the past. She does not have any headache, visual disturbances, chest pain, shortness of breath, paroxysmal nocturnal dyspnea, orthopnea or pedal edema. Her diet is rich in sodium. She is taking her medications as prescribed . She denies taking excessive nonsteroidal anti-inflammatory medications. She has no blood in the urine. She does not get urinary tract infections.Her renal functions has been at baseline [facility] Medical History (Updated 12/27/24 @ 09:59 by Laya Mosqueda CNP) Acid reflux Constipation Anemia Colon cancer screening Hypertension Depression Diabetes Hypothyroidism CKD (chronic kidney disease) HLD (hyperlipidemia) Surgical History Hx of colonoscopy Family History Mother Heart disease Father Heart disease Social History Household Members: Family Alcohol intake: never Patient Tobacco Use Status: Never used Tobacco Review of Systems Const All systems reviewed & are unremarkable except as noted in HPI and below Physical Exam Vital Signs: Last Vital Signs Pulse 76 01/10/25 11:38 BP 110/70 01/10/25 11:38 Pulse Ox 96 01/10/25 11:38 Oxygen Delivery Method Room Air 01/10/25 11:38 BMI result Body Mass Index 30.8 Const General: comfortable and no acute distress Orientation/consciousness: patient oriented x3 HEENT Head: Yes normocephalic Mouth: Normal oral and palatal mucosa present Eyes EOM: EOMs intact bilaterally Neck Neck: Yes supple Resp Auscultation: clear to auscultation bilaterally Cardio Jugular venous distension: no JVD Rate: regular rate GI Palpation (GI): Soft to palpation Auscultation: normal bowel sounds General: Yes no CVA tenderness Back/Spine/Pelvis Back: no CVA tenderness Skin General skin exam: no rashes or lesions noted Neuro General: patient oriented x3 and moves all extremities Extrem General: Yes no pedal edema Results Reviewed Nephrology Results: Sodium, (135-145) 138 mmol/L 09/20/24 Potassium, (3.3-5.1) 4.2 mmol/L 09/20/24 Chloride, (96-108) 105 mmol/L 09/20/24 Carbon Dioxide, (22-29) 25 mmol/L 09/20/24 BUN, (9-16) 13 mg/dL 10/04/24 Creatinine, (0.5-1.4) 1.00 mg/dL 09/20/24 Calcium, (8.4-10.2) 9.7 mg/dL 10/04/24 Urine Creatinine 134.39 mg/dL 09/27/24 Assessment & Plan Assessment & Plan (1) Hypertension: Code(s): I10 - Essential (primary) hypertension Category: Medical Qualifiers: Hypertension type: primary hypertension Qualified Code(s): I10 - Essential (primary) hypertension Plan Ms Saunders as hypertension for long time. She should continue losartan 100 mg daily. (She has allergy to lisinopril in the past but is tolerating ARB well). She is also taking nifedipine 120 mg daily along with Spironolactone 75 mg daily.( side effects including hyperkalemia needs monitoring- blood work ordered for it- pt aware). She denies taking excessive nonsteroidal anti-inflammatory medications. She is on lipid-lowering agents. She has no coronary artery disease or signs of congestive heart failure. She is not a diabetic. No other medication changes made today. All her questions were answered. Orders: Orders Blood Urea Nitrogen 6 Months I10 - Essential (primary) hypertension Electrolytes 6 Months I10 - Essential (primary) hypertension Blood Urea Nitrogen 3 Months I10 - Essential (primary) hypertension Creatinine 6 Months I10 - Essential (primary) hypertension Calcium 6 Months I10 - Essential (primary) hypertension Creatinine 3 Months I10 - Essential (primary) hypertension Electrolytes 3 Months I10 - Essential (primary) hypertension Coding Level of Care Code Est Pt Level 4 (95470) Diagnoses Primary hypertension I10 Hypertension type: primary hypertension
[2025-01-10 11:38] VITALS: BP 110/70; PULSE 76; O2SAT 96; BMI 30.8
--- OUTSIDE RECORDS SUMMARY | 2025-01-10 13:58 | XMS_ITS | Encounter Summary ---
Author Organization [employer] Address [address] [facility] 7t [place] [address] Care Team Providers Care Distributor Publications Name Role Phone Zuleima Ward MD Primary Care Provider [phone] Ani Ramires CNP Primary Care Provider [phone] Katharine Cat PharmD Unavailable [phone] Reason for Visit * Reason Comments Med Refill Encounter Details Date Type Department Care Team ([facility] st Contact Info) Description 11/22/2023 Refill [facility] 230 [place] [address] Re Crespo MD [address] [place] [address] Social History Tobacco Use Types Packs/Day Years [...] documented as of this encounter Care Teams Distributor Publications Relationship Specialty Start Date End Date Zuleima Ward MD [address] [place] [address] PCP - General Family Medicine 04/25/20 06/04/24 Ani Ramires CNP [address] [place] [address] PCP - General Family Medicine 06/05/24 Katharine Cat PharmD [address] [place] [address] Pharmacist Internal Medicine 06/26/24 12/28/24 documented as of this encounter
--- OUTSIDE RECORDS SUMMARY | 2025-01-10 13:58 | XMS_ITS | Encounter Summary ---
Author Organization [email or web address] [facility] Address [address] [place] [address] 7 [place] [address] Care Team Providers Care Maitre D Name Role Phone Zuleima Ward MD Primary Care Provider [phone] Ani Ramires CNP Primary Care Provider [phone] Katharine Cat PharmD Unavailable [phone] Encounter Details Date Type Department Care Team (Late st Contact Info) Description 11/18/2022 Orders Only [facility] MEDICINE 230 [place] [address] Provider, MD Jesica Social History Tobacco Use [...] on filedocumented in this encounter Care Teams Maitre D Relationship Specialty Start Date End Date Zuleima Ward MD 230 [place] [address] PCP - General Family Medicine 04/25/20 06/04/24 Ani Ramires CNP [address] [place] [address] PCP - General Family Medicine 06/05/24 Katharine Cat PharmD [address] [place] [address] Pharmacist Internal Medicine 06/26/24 12/28/24 documented as of this encounter
--- OUTSIDE RECORDS SUMMARY | 2025-01-10 13:58 | XMS_ITS | Encounter Summary ---
Author Organization [employer] Address [address] [place] [address] 7 [place] [address] Care Team Providers Care Transmitter Tester Name Role Phone Zuleima Ward MD Primary Care Provider [phone] Ani Ramires CNP Primary Care Provider [phone] Ktaharine Cat PharmD Unavailable [phone] Reason for Visit * Reason Onset Date Comments Change PCP 06/07/2023 Encounter Details Date Type Department Care Team (Late st Contact Info) Description 06/07/2023 Telephone [facility] 230 [place], [place] [phone] Zuleima Ward MD 230 [place], [place] [phone] Change PCP Social History Tobacco Use Types [...] 1:59 PM EDT RN called pt via [employer] interpretor #[id number], pt states she would like to change to a Slovenian speaking provider to help understand her more. mPt is complaining iof bone pain, informed to come to [facility] for evaluation. Pt states understanding. Please sandra change in PCP request Tc from pt requesting a PCP change due to not meeting medical needs. Please contact pt at [phone] (Slovenian) * Telephone Encounter - Cookei Pedraza - 06/07/2023 11:39 AM EDT Tc from pt requesting a PCP change due to not meeting medical needs. Please contact pt at [phone] (Slovenian) documented in this encounter Plan of Treatment Not on file documented as of this encounter Visit Diagnoses Not on filedocumented in this encounter Additional Health Concerns Assessment Noted Time PHQ-9 Depression Total Score: 3 05/24/19 24 11:36 AM EDT documented as of this encounter Care Teams Transmitter Tester Relationship Specialty Start Date End Date Zuleima Ward MD 230 [place] [address] PCP - General Family Medicine 04/25/20 06/04/24 Ani Ramires CNP 230 [place] [address] PCP - General Family Medicine 06/05/24 Katharine Cat PharmD 230 [place] [address] Pharmacist Internal Medicine 06/26/24 12/28/24 documented as of this encounter
--- OUTSIDE RECORDS SUMMARY | 2025-01-10 13:58 | XMS_ITS | Clinical Summary ---
Author Organization [employer] Address [address] [place] [address] 7 [place] [address] Care Team Providers Care Copyright Clerk Name Role Phone IkeBerryjeremielulu BOB Primary Care Provider [phone] Allergies Active Allergy Reactions Criticality Noted Date Comments Fish Allergy 09/18/2013 Other reaction(s): throat closes up, stuffy nose Lisinopril Angioedema High 09/24/2011 Medications famotidine (Pepcid) 20 MG tablet TAKE 1 TABLET BY MOUTH ONCE DAILY 90 tablet 3 024 Active Additional Information Patient taking differently:20 mg OralDaily PRN, heartburn, Reported on 09/13/2024 D3 Super Strength 50 MCG (2000 UT) capsule TAKE 1 CAPSULE BY MOUTH EVERY DAY 90 capsule 3 024 Active FLUoxetine (PROzac) 10 MG capsuleIndication s:Anxiety Take 1 capsule (10 mg) by mouth Once per day. 30 capsule 11 025 Active Acetaminophen Extra Strength 500 MG tablet TAKE 2 TABLETS BY MOUTH EVERY 8 HOURS NEEDED FOR MILD PAIN 90 tablet 1 025 Active fluticasone (Flonase) 50 MCG/ACT nasal spray Administer 2 sprays into each nostril Once per day. Shake gently. Before first use, prime pump. After use, clean tip and replace cap. 16 g 3 025 Active Ketotifen Fumarate (Alaway) 0.035 % solution Administer 1 drop into affected eye(s) if needed in the morning and at bedtime (eye itching). 10 mL 3 025 Active cetirizine (ZyrTEC) 10 MG tablet TAKE 1 TABLET BY MOUTH EVERY DAY 30 tablet 11 Active Additional Information Patient taking differently:10 mg OralDaily PRN, Reported on 09/27/2024 alendronate (Fosamax) 10 MG tabletIndications :Osteoporosis, unspecified osteoporosis type, unspecified pathological fracture presence Take 1 tablet (10 mg) by mouth before breakfast. Take in the morning with a full glass of water, on an empty stomach, and do not take anything else by mouth or lie down for the next 30 min. 30 tablet 025 2025 Active calcium carbonate (Calcium 600) 600 MG tabletIndications :Osteoporosis, unspecified osteoporosis type, unspecified pathological fracture presence Take 1 tablet (600 mg) by mouth with breakfast and with evening meal. 60 tablet 2025 Active rosuvastatin (Crestor) 10 MG tabletIndications :Hyperlipidemia, unspecified hyperlipidemia type Take 1 tablet (10 mg) by mouth Once per day. 90 tablet 1 Active hydrALAZINE (Apresoline) 50 MG tabletIndications :Essential hypertension Take 1 tablet (50 mg) by mouth 3 times daily. 90 tablet 1 Active spironolactone (Aldactone) 100 MG tabletIndications :Essential hypertension Take 1 tablet (100 mg) by mouth Once per day. 90 tablet 1 Active OXcarbazepine (Trileptal) 150 MG tabletIndications :Anxiety Take 1 tablet (150 mg) by mouth at bedtime. 90 tablet 1 025 2024 Discontinued spironolactone (Aldactone) 100 MG tabletIndications :Essential hypertension Take 1 tablet (100 mg) by mouth Once per day. 90 tablet 3 025 2024 Discontinued(R eorder (will not trigger notification to Pharmacy)) rosuvastatin (Crestor) 20 MG tabletIndications :Hyperlipidemia, unspecified hyperlipidemia type Take 1 tablet (20 mg) by mouth Once per day. 90 tablet 3 025 2024 Discontinued(R eorder (will not trigger notification to Pharmacy)) hydrALAZINE (Apresoline) 50 MG tabletIndications :Essential hypertension Take 1 tablet (50 mg) by mouth 3 times daily. 90 tablet 3 025 2024 Discontinued(R eorder (will not trigger notification to [...] 25 mg to 75 mg per her doctor of naturopathic medicine's recommendations. Mammo due- orders placed DEXA due- [...] EST): Updated pt med list to reflect doctor of naturopathic medicine recommendations. Pt med regimen should be the [...] Hydralazine, nurse BP check in 2-4 weeks [facility] advised for worsening dizziness symptoms Nephro re-consulted [...] Encounters Date Type Department Care Team Description 01/03/2025 9:45 AM EDT Office Visit [facility] [address] [place] [address] Ani Ramires CNP Stage 3a chronic kidney disease (CMS/HCC) (HCC) (Primary Dx); Essential hypertension; Hyperlipidemia, unspecified hyperlipidemia type 01/03/2025 Travel 12/29/2024 Telephone [facility] [address] [place] [address] Ani Ramires CNP chart prep 12/29/2024 Travel 12/26/2024 Telephone [facility] [address] [place], [place] [phone] Ani Ramires CNP 12/22/2024 Travel from Last 3 Months Immunizations Immunization Administration Dates Next Due Influenza High-dose Quadriva lent Preservative Free 12/15/2021 Influenza injectable quadriv alent IIV4 with preservative 12/27/2017,02/24/2017,06/21/2015 Influenza injectable quadriv alent preservative free 12/23/2018,03/19/2016 Influenza, High Dose Seasona l, Preservative Free 12/29/2024,04/21/2024 Influenza, IIV3, injectable 12/18/2013, 1 Influenza, Split (incl. giuseppe fied surface antigen) 12/16/2012,12/10/2011 Moderna Covid-19 Vaccine 12+ 04/23/2021,09/24/19 21,08/29/2020 Pfizer Covid-19 Vaccine 12+ 12/29/2024,,01/30/2022 Pneumococcal Conjugate PCV 20 12/15/2021 TD (adult), [...] Sign Reading Time Taken Comments Blood Pressure 142/86 01/03/2025 9:36 AM EDT Pulse 90 01/03/2025 9:36 AM EDT Temperature 36.1 C (97 F) 01/03/2025 9:36 AM EDT Respiratory Rate 12 01/03/2025 9:36 AM EDT Oxygen Saturation 98% 01/03/2025 9:36 AM EDT Inhaled Oxygen Concentration - - Weight 74.4 kg (164 lb) 01/03/2025 9:36 AM EDT Height 157.5 cm (5' 2 ) 01/03/2025 9:36 AM EDT Body Mass Index 30 01/03/2025 9:36 AM EDT Plan of Treatment Health Maintenance Due Date Last Done Comments CT Colonography 1955 FIT DNA/Cologuard 1955 FIT 1955 FOBT 1955 Sigmoidoscopy 1955 Hepatitis C Screening 11/23/1973 Alcohol/Substance Use Screening 04/21/2025 04/21/2024 Depression Screening 04/21/2025 04/21/2024, 04/21/19 25 SDOH Screening 04/21/2025 04/21/2024 Diabetes: Hemoglobin A1C 04/26/2025 025, 01/21/2022, 07/28/2021 Mammogram 05/23/2025 05/23/2024, 06/0 11/2022, 08/21/2022, Additional history exists Tobacco Screening 07/21/2025 07/21/2024 Colonoscopy 09/04/2027 09/03/2017 Colorectal Cancer Screening 09/04/2027 Lipid Panel 09/20/2029 09/20/2024, 04/15, 01/21/2022, Additional history exists RSV Patients and Patients Aged 60 years or older (1 - 1-dose 75+ series) 11/23/2030 DTaP/Tdap/Td Vaccines (3 - Td or Tdap) 06/26/2034 06/26/2024, 05/24/2013, 05/27/2010 Pneumococcal Vaccine: 50+ Years Completed 12/15/2021 Zoster Vaccines Completed 02/16/2022, 1005/2021, 03/19/2016 COVID-19 Vaccine Completed 12/29/2024, 09/2024, 01/30/2022, Additional history exists Influenza Vaccine Completed 12/29/2024, , 12/15/2021, Additional history exists HIB Vaccines Aged Out [...] EDT Chest pain on exertion Abnormal ECG LIPID PANEL, STANDARD Routine 09/20/2024 10:21 AM EDT BI MAMMOGRAM SCREENING TOMOSYNTHESIS BILATERAL Routine 05/23/2024 11:55 AM EDT Routine health maintenance HEMOGLOBIN A1C Routine 04/26/2024 10:40 AM EST Routine health maintenance HM COLONOSCOPY Routine 09/03/2017 from Last 3 Months or Most Recently Relevant to Health Maintenance Results * Stress test with myocardial perfusion (12/04/2024 9:58 AM EDT) 12/04/2024 9:58 AM EDT Narrative [facility] - 12/05/2024 4:13 PM EDT [address] [address] Nuclear Medicine Report Signed Patient: Danni Lakhani MR#: [id number] : 1955 Acct:[id number] Age/Sex: 69 / F ADM Date: 12/04/24 Loc: HO.GUERA Attending Dr: Ani Ramires SURFACE ROOM [employer] Ordering Physician: Ani Ramires NP Date of Service: 12/04/24 Procedure(s): NM cardiolite stress test Accession Number(s): [id number] cc: Ani Ramires NP Reason for Exam: [...] Willard Jackson MD 12/05/2024 04:10 PM EDT RP Dictated By: Willard Jackson MD Signed By: <Electronically signed by Willard Jackson MD in OV> 12/05/24 1610 DD/ 0958 TD/TT: 12/05/24 1235 [place] [employer]: Procedure Note Donotuseinterpreter, Image - 12/05/2024 [place] [address] Nuclear Medicine Report Signed Patient: Danni LakhaniMR#: [id number] : 6Acct:[id number] Age/Sex: 69 / FADM Date: 12/04/24 Loc: JACQUE Attending Dr: Ani Ramires SURFACE ROOM [employer] Ordering Physician: Ani Ramires NP Date of Service: 12/04/24 Procedure(s): NM cardiolite stress test Accession Number(s): [id number] cc: Ani Ramires NP Reason for Exam: [...] Willard Jackson MD 12/05/2024 04:10 PM EDT RP Dictated By: Willard Jackson MD Signed By: <Electronically signed by Willard Jackson MD in OV> 12/05/24 1610 DD/ 0958 TD/TT: 12/05/24 1235 [place] [employer]: [facility] CV STRESS PROCEDURES Leann l Result [facility] [address] [place] [phone] * Lipid Panel, Standard (09/20/2024 10:21 AM EDT) Triglycerides 84 <150 mg/dL [facility] Comment:Desirable Triglyceri de: less than 150 mg/dLBorderline High Triglyceride 150-199 mg/dLHigh Triglyceride: 200-499 mg/dLVery High Triglyceride: greater than or equal to 5OO mg/dL Cholesterol 127 <200 mg/dL [facility] Comment:Desirable Cholestero l: less than 200 mg/dLBorderline High Cholesterol: 200-239 mg/dLHigh Cholesterol: greater than 239 mg/dL LDL Cholesterol Calculated 62 <100 mg/dL [facility] Comment:Desirable LDL: less than 100 mg/dLNear Optimal/Above Optimal LDL: 110- 129 mg/dLBorderline High LDL: 130-159 mg/dLHigh LDL: 160-189 mg/dLVery High LDL: greater than or equal to 190 mg/dL HDL Cholesterol 49 >40 mg/dL [facility] Comment:Desirable HDL: great er than 40 mg/dL Note: This HDL assay may give artificially low results in patients with liver disease. 09/20/2024 10:2 1 AM EDT 09/20/2024 12:00 PM EDT Ani Ramires [facility] LAB BLOOD ORDERABLES Leann l Result [facility] [address] [place], [place] [phone] * BI Mammogram Screening Tomosynthesis Bilateral (05/23/2024 11:55 AM EDT) Anatomical Region Laterality Modality Breast Bilateral Mammography 05/23/2024 11:5 5 AM EDT Narrative 05/30/2024 5:30 PM EDT [facility] [address] [place] [address] Mammography Report Signed Patient: Danni Lakhani MR#: [id number] : 1955 Acct:[id number] Age/Sex: 68 / F ADM Date: 05/23/24 Loc: LUCILA Attending Dr: Ani Ramires SURFACE ROOM [employer] Ordering Physician: Ani Ramires Results: 1Nega tive Date of Service: 05/23/24 Follow Up: 1 Year From Orig ina Mammogram Procedure(s): MM tomosynthesis screening BI Accession Number(s): [id number] cc: Ani Ramires EXAMINATION: MM SCREENING DIGITAL [...] Mikayla Mahajan DO 05/30/2024 05:24 PM EDT RP Dictated By: Mikayla Mahajan DO Signed By: <Electronically signed by Mikayla Mahajan DO in OV> 05/30/24 1724 DD/ 1155 TD/TT: 05/23/24 1210 [place] [employer]: Procedure Note Donotuseinterpreter, Image - 05/30/2024 [facility] [address] [place], [place] [address] Mammography Report Signed Patient: Danni LakhaniMR#: [id number] : 1955cct:[id number] Age/Sex: 68 / FADM Date: 05/23/24 Loc: LUCILA Attending Dr: Ani Ramires SURFACE ROOM [employer] Ordering Physician: Kimber Ramiresults: 1Nega timeron Date of Service: 05/23/24Follow Up: 1 Year From Orig ina Mammogram Procedure(s): MM tomosynthesis screening BI Accession Number(s): [id number] cc: Ani Ramires EXAMINATION: MM SCREENING DIGITAL [...] 05/30/24 1724 DD/ 1155 TD/TT: 05/23/24 1210 [place] [employer]: [facility] BI PROCEDURES Final R esult * Hemoglobin A1c (04/26/2024 10:40 AM EST) Hemoglobin A1c 5.6 <6.0 % [facility] Comment:Hemoglobin A1C Refer ence Range Adults: 4.8 - 6.0 % Non diabetic: < 6.0 % Goal: < 7.0 %Additional Action Suggested: > 8.0 %Note: Hemoglobin A1c results are invalid for patients with abnormal amounts of HbF. Blood transfusions may impact the HbA1c concentration in the patient sample. Estimated Average Glucose 114 mg/dL [facility] Comment:eAG = Estimated ave rage glucose which is %A1C expressed asaverage glucose, using the formula of the [id number] Glucose study (ADAG), Diabetes Care, Vol.31,#8,Oct. 2007 Blood Venous blood specimen / Unknown 04/26/2024 10:40 AM EST 04/26/2024 1:42 PM EST [facility] LAB BLOOD ORDERABLES Leann l Result [facility] [address] [place] [address] [phone] * Hm Colonoscopy (09/03/2017) Historical Provider HEALTH MAINTENANCE Final Result from Last 3 Months or Most Recently Relevant to Health Maintenance Insurance [facility] [employer] [place] MED[employer]AGE Care Teams Copyright Clerk Relationship Specialty Start Date End Date Ani Ramires CNP PCP - General Family Medicine 06/05/24
--- OUTSIDE RECORDS SUMMARY | 2025-01-10 13:58 | XMS_ITS | Encounter Summary ---
Author Organization [employer] Address [address] [place] [address] 7 [place] [address] Care Team Providers Care Leadership Program Associate Name Role Phone Zuleima Ward MD Primary Care Provider [phone] Ani Ramires CNP Primary Care Provider [phone] Katharine Cat PharmD Unavailable Encounter Details Date Type Department Care Team (Late st Contact Info) Description 12/15/2023 Orders Only [facility] [address] [place] [address] Zuleima Ward MD [address] [place], [place] [phone] Social History Tobacco Use Types Packs/Day Years [...] documented as of this encounter Care Teams Leadership Program Associate Relationship Specialty Start Date End Date Zuleima Ward MD [address] [place] [address] PCP - General Family Medicine 04/25/20 06/04/24 Ani Ramires CNP [address] [place] [address] PCP - General Family Medicine 06/05/24 Katharine Cat PharmD [address] [place] [address] Pharmacist Internal Medicine 06/26/24 12/28/24 documented as of this encounter
--- OUTSIDE RECORDS SUMMARY | 2025-01-10 13:58 | XMS_ITS | Encounter Summary ---
Author Organization [employer] Address [address] [place] [address] 7 [place] [address] Care Team Providers Care Instrumentation Specialist Name Role Phone Zuleima Ward MD Primary Care Provider [phone] Ani Ramires CNP Primary Care Provider [phone] Katharine Cat PharmD Unavailable [phone] Encounter Details Date Type Department Care Team (Late st Contact Info) Description 06/09/2023 Orders Only [facility] [address] [place] [address] Zuleima Ward MD [address] [place], [place] [phone] Fibromyalgia (Primary Dx) Social History Tobacco Use [...] documented as of this encounter Care Teams Instrumentation Specialist Relationship Specialty Start Date End Date Zuleima Ward MD [address] [place] [address] PCP - General Family Medicine 04/25/20 06/04/24 Ani Ramires CNP [address] [place] [phone] PCP - General Family Medicine 06/05/24 Katharine Cat PharmD [address] [place] [address] Pharmacist Internal Medicine 06/26/24 12/28/24 documented as of this encounter
--- OUTSIDE RECORDS SUMMARY | 2025-01-10 13:58 | XMS_ITS | Clinical Summary ---
Author Organization [facility] Address [address] [place] [address] [place] [address] Phone Care Team Providers Care Card Filer Name Role Phone Zuleima Ward MD Primary Care Provider Allergies Active Allergy Reactions Criticality Noted Date Comments Fish Protein-Containing Drug Products Other (see comments) 06/05/2020 Lisinopril Other (see comments) 06/05/2020 Medications acetaminophen [...] [place] [address] Care Teams Card Filer Relationship Specialty Start Date End Date Zuleima Ward MD PCP - General Disability Counselor 01/03/21
== END 2025-01-10 11:56 | disposition home or self-care (01) ==
LOC: HO.HKA 11:01
PROVIDERS: PCP General Practice; Visit Provider Internal Medicine Nephrology
DX: I10 Essential (primary) hypertension (principal)
CPT/HCPCS: 99214

== ENCOUNTER → 2025-01-10 11:00 | Outpatient (BNVA) | payer OTHER, SELFPAY | PROVIDERS: PCP General Practice; Visit Provider Internal Medicine Nephrology | DX: I10 Essential (primary) hypertension (principal) | CPT/HCPCS: 99212 ==